=== PATIENT | male | born 1950 | race Caucasian/White ===

== ENCOUNTER → 2022-05-11 12:10 | Outpatient (BNVA) | payer MEDICARE, BC, SELFPAY | PROVIDERS: Family Provider Internal Medicine; PCP Internal Medicine; Visit Provider Family Medicine | DX: Z98.890 Other specified postprocedural states (principal); Z90.49 Acquired absence of other specified parts of digestive tract; Z90.89 Acquired absence of other organs; E83.52 Hypercalcemia; E16.2 Hypoglycemia, unspecified; K21.9 Gastro-esophageal reflux disease without esophagitis; I10 Essential (primary) hypertension; K86.89 Other specified diseases of pancreas; E11.59 Type 2 diabetes mellitus with other circulatory complications; E78.5 Hyperlipidemia, unspecified; Z79.4 Long term (current) use of insulin; E53.8 Deficiency of other specified B group vitamins; Z12.5 Encounter for screening for malignant neoplasm of prostate; N18.9 Chronic kidney disease, unspecified; K30 Functional dyspepsia; K86.81 Exocrine pancreatic insufficiency; E11.22 Type 2 diabetes mellitus with diabetic chronic kidney disease | CPT/HCPCS: 80053; 80061; 82607; 83036; 84443; G0103 ==

== ENCOUNTER → 2022-09-26 12:37 | Outpatient (BNVA) | payer MEDICARE, BC, SELFPAY | PROVIDERS: Family Provider Internal Medicine; PCP Family Medicine; Visit Provider Family Medicine | DX: E11.9 Type 2 diabetes mellitus without complications (principal); Z79.4 Long term (current) use of insulin; E78.5 Hyperlipidemia, unspecified; I10 Essential (primary) hypertension | CPT/HCPCS: 80053; 80061; 83036; 84443; 85025 ==

== ENCOUNTER 2022-10-20 06:00 | Outpatient (RCR) | payer MEDICARE, BC, SELFPAY | END 2022-11-14 23:59 | disposition home or self-care (01) | LOC: TPT 06:00 | PROVIDERS: PCP Family Medicine; Visit Provider Family Medicine | DX: R29.6 Repeated falls (principal) | CPT/HCPCS: 97110; 97116; 97163 ==

== ENCOUNTER 2022-11-15 06:00 | Outpatient (RCR) | payer MEDICARE, BC, SELFPAY | END 2022-12-15 23:59 | disposition home or self-care (01) | LOC: TPT 06:00 | PROVIDERS: PCP Family Medicine; Visit Provider Family Medicine | DX: R29.6 Repeated falls (principal) | CPT/HCPCS: 97110; 97164 ==

== ENCOUNTER → 2022-11-20 12:07 | Outpatient (BNVA) | payer MEDICARE, BC, SELFPAY | PROVIDERS: PCP Family Medicine; Visit Provider Nurse Practitioner Family | DX: M25.531 Pain in right wrist (principal) | CPT/HCPCS: 73110; 73130 ==

== ENCOUNTER 2022-12-16 06:00 | Outpatient (RCR) | payer MEDICARE, BC, SELFPAY | END 2022-12-28 23:59 | disposition home or self-care (01) | LOC: TPT 06:00 | PROVIDERS: PCP Family Medicine; Visit Provider Family Medicine | DX: R29.6 Repeated falls (principal) | CPT/HCPCS: 97110; 97164 ==

== ENCOUNTER → 2022-12-21 08:30 | Outpatient (BNVA) | payer MEDICARE, BC, SELFPAY | PROVIDERS: PCP Family Medicine; Visit Provider Family Medicine | DX: E11.9 Type 2 diabetes mellitus without complications (principal); Z79.4 Long term (current) use of insulin; N18.9 Chronic kidney disease, unspecified | CPT/HCPCS: 80053; 83036; 85025 ==

== ENCOUNTER → 2023-10-10 11:00 | Outpatient (BNVA) | payer MEDICARE, BC, SELFPAY | PROVIDERS: PCP Family Medicine; Visit Provider Family Medicine | DX: Z79.4 Long term (current) use of insulin (principal); E11.9 Type 2 diabetes mellitus without complications; I10 Essential (primary) hypertension; E78.5 Hyperlipidemia, unspecified | CPT/HCPCS: 80053; 80061; 83036; 84443; 85025 ==

== ENCOUNTER → 2023-11-01 12:06 | Outpatient (BNVA) | payer MEDICARE, BC, SELFPAY | PROVIDERS: PCP Family Medicine; Visit Provider Family Medicine | DX: R30.0 Dysuria (principal) | CPT/HCPCS: 81003; 87086 ==

== ENCOUNTER 2023-11-29 07:37 | Inpatient (IN) | payer MEDICARE, BC, SELFPAY ==
[2023-11-29] VITALS (81 sets, daily range): BP systolic 90–126; BP diastolic 52–69; PULSE 73–93; RESP 12–37; TEMP 36.6–37; O2SAT 90–98; BMI 27.1; BMI 29.9
--- NOTE | 2023-11-29 07:50 | ECG_ITS ---
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 Measurements Intervals [place] Rate: 82 P: 45 TX: 152 QRS: 72 QRSD: 150 T: -49 QT: 392 QTc: 460 Interpretive Statements SINUS RHYTHM INTRAVENTRICULAR CONDUCTION DELAY [130+ ms QRS DURATION] PROBABLE INFERIOR MYOCARDIAL INFARCTION , OF INDETERMINATE AGE [35 ms Q WAVE IN II/aVF] No previous ECG available for comparison Electronically Signed On 11-29-2023 15:19:06 CDT by Jeovanny Francis M.D. [id number]
--- NOTE | 2023-11-29 07:57 | W.ED.WEAKNES ---
HPI - Weakness General: Chief complaint: Weakness Stated complaint: generalized weakness Time Seen by Provider: 11/29/23 07:48 Source: patient Mode of arrival: EMS History of Present Illness: 73-year-old male presents emergency room via EMS complaining of generally not feeling well and being weak. States began about 3 weeks ago when he had a bladder infection does not feel like it is ever really completely resolved he was on some antibiotics for 5 days but he is completed those still not feeling well. He denies fever denies chest pain or shortness of breath he has noticed increased swelling in his legs and they are exquisitely tender. No abdominal or flank pain at this time no shortness of breath. MD Complaint: generalized weakness Onset (ago): week(s) (3) Duration: constant Location: generalized Relieving factors: none Exacerbating factors: none Associated symptoms: Denies chest pain, chills, confusion, melena, decreased appetite, diaphoresis, dysuria, easy bruising, fever(s), headache(s), myalgias, nausea, rash, short of breath, syncope or vomiting Review of Systems Const: Denies: fever(s), chills or diaphoresis Card: Denies: chest pain or syncope GI: Denies: abdominal pain, nausea, vomiting or melena : Reports: difficulty starting urination and oliguria; Denies: flank pain, dysuria, urinary frequency or urinary urgency Neuro: Denies: headache(s) or confusion Yoni/Lymph: Denies: easy bruising PFSH ED PFSH: Medical History 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 Essential (primary) hypertension Gastro-esophageal reflux disease without esophagitis Hypoglycemia 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Reston's syndrome Essential (primary) hypertension CVA (cerebral vascular accident) Hyperlipidemia CKD (chronic kidney disease) Surgical History History of esophagogastroduodenoscopy (EGD) History of tonsillectomy and adenoidectomy History of cholecystectomy History of colonoscopy Family History Other Diabetes Heart disease Social History Smoking and tobacco/nicotine status: never used tobacco/nicotine Second hand smoke exposure: No Alcohol intake: former Substance/Drug Use: never Caregiver/support person: Yes Lives independently: Yes Household members: spouse Marital status: service: No Current occupational status: retired Current gender identity: Male Special thomas needs: No Agree to transfusion: Yes Physical Exam Const: GENERAL APPEARANCE: cooperative ORIENTATION/CONSCIOUSNESS: Yes awake, Yes oriented to person, Yes oriented to place and Yes oriented to time HENMT: COMMON NORMALS: normocephalic, atraumatic and hearing grossly normal bilaterally HEAD & SCALP: normocephalic and atraumatic Resp: COMMON NORMALS: normal respiratory effort, No retractions, No use of accessory muscles and clear to auscultation bilaterally AUSCULTATION: clear to auscultation bilaterally Cardio: COMMON NORMALS: regular rate, regular rhythm and No murmurs present (Cardio) RATE: regular rate RHYTHM: regular rhythm GI: COMMON NORMALS: Soft to palpation and No hepatosplenomegaly present AUSCULTATION: Yes normoactive bowel sounds PALPATION: Yes Soft to palpation, No Tenderness to palpation present (GI), No Guarding due to palpation present (GI) and Yes No hepatosplenomegaly present Extremity: OTHER: Bilateral lower leg swelling with induration of the legs mildly reddened exquisitely tender to touch. Extends all the way to the buttocks and presacral area Neuro: SENSORIUM/ORIENTATION: Yes oriented to person, Yes oriented to place and Yes oriented to time Skin: COMMON NORMALS: no rashes or lesions noted GENERAL SKIN EXAM: no rashes or lesions noted Course Vital Signs: Vital signs: Vital Signs Temperature 98.6 F 11/29/23 07:39 Pulse Rate 73 11/29/23 11:13 Respiratory Rate 18 11/29/23 07:39 Blood Pressure 98/56 11/29/23 11:13 Pulse Oximetry 95 11/29/23 11:13 Oxygen Delivery Me thod Room Air 11/29/23 11:13 MDM - Weakness Medical Decision Making Acute renal failure with hyperkalemia cystitis and sepsis. Lactic acid is normal. Cultures done has been given fluid bolus and has been started on meropenem. No previous urine cultures to based off of it. Pollard was placed had significantly purulent appearing urine. CT abdomen pelvis shows gastroparesis although he is nauseous he is not having a vomiting at this time. His hyperkalemia has been treated with calcium chloride sodium bicarb infusion insulin and Kayexalate. Nephrology consulted admitted to hospitalist service. Medical Records I reviewed the patient's medical records. Lab Data I reviewed the patient's lab results. 11/29/23 08:17 11/29/23 08:17 Radiology Impressions Chest X-Ray 11/29/23 08:06 IMPRESSION: No acute findings. Laboratory Results WBC 22.35 10^3/uL (3.29-11.43) H 11/29/23 08:17 RBC 4.08 10^6/uL (3.85-5.65) 11/29/23 08:17 Hgb 12.10 g/dL (11.27-16.99) 11/29/23 08:17 Hct 37.6 % (37-53) 11/29/23 08:17 MCV 92.2 fl (82-101) 11/29/23 08:17 MCH 29.7 pg (27-33) 11/29/23 08:17 MCHC 32.2 g/dL (30-55) 11/29/23 08:17 RDW 14.0 % (12.1-15.1) 11/29/23 08:17 Plt Count 214 10^3/cmm (157-399) 11/29/23 08:17 MPV 11.0 fL (7.4-10.4) H 11/29/23 08:17 Neut % (Auto) 92.3 % 11/29/23 08:17 Lymph % (Auto) 3.6 % 11/29/23 08:17 [place] % (Auto) 2.5 % 11/29/23 08:17 Eos % (Auto) 0.2 % 11/29/23 08:17 Baso % (Auto) 0.2 % 11/29/23 08:17 Neut # (Auto) 20.64 10^3/uL (1.8-7.7) H 11/29/23 08:17 Lymph # (Auto) 0.8 10^3/uL (0.8-4.8) 11/29/23 08:17 [place] # (Auto) 0.6 10^3/uL (0.2-0.9) 11/29/23 08:17 Eos # (Auto) 0.0 10^3/uL (0.0-0.8) 11/29/23 08:17 Baso # (Auto) 0.0 10^3/uL (0.0-0.1) 11/29/23 08:17 Nucleated RBC % (auto) 0 % 11/29/23 08:17 Nucleated RBCs # 0.0 /100WBC 11/29/23 08:17 Sodium 130 mmol/L (136-145) L 11/29/23 08:17 Potassium 5.8 mmol/L (3.5-5.1) H 11/29/23 08:17 Chloride 93 mmol/L (98-107) L 11/29/23 08:17 Carbon Dioxide 14 mmol/L (22-29) L 11/29/23 08:17 Anion Gap 28.8 (5-19) H 11/29/23 08:17 BUN 63 mg/dL (8-23) H 11/29/23 08:17 Creatinine 7.3 mg/dL (0.7-1.2) H* 11/29/23 08:17 GFR Calculation Not Reportable 11/29/23 08:17 Glucose 166 mg/dL (65-115) H 11/29/23 08:17 Calculated Osmolality 292 mOsm/kg (285-295) 11/29/23 08:17 Lactic Acid 1.6 mmol/L (0.5-2.2) 11/29/23 08:17 Calcium 7.4 mg/dL (8.5-10.5) L 11/29/23 08:17 Magnesium 1.3 mg/dL (1.7-2.3) L 11/29/23 08:17 Total Bilirubin 1.0 mg/dL (0.15-1.2) 11/29/23 08:17 AST 34 U/L (0-40) 11/29/23 08:17 ALT 31 U/L (0-41) 11/29/23 08:17 Alkaline Phosphatase 543 U/L (40-130) H 11/29/23 08:17 Creatine Kinase 73 U/L (39-308) 11/29/23 08:17 Troponin T Baseline 390 ng/L (0-15) H* 11/29/23 08:17 Troponin T 120 Minute 333.4 ng/L (0-15) H 11/29/23 10:14 Delta Troponin T -56.6 ABS# (0-10) L 11/29/23 10:14 NT-Pro-B Natriuret Pep 85750 pg/mL (0-125) H 11/29/23 08:17 Total Protein 5.9 g/dL (6.6-8.7) L 11/29/23 08:17 Albumin 2.4 g/dL (3.5-5.2) L 11/29/23 08:17 Globulin 3.5 g/dL (1.3-4.6) 11/29/23 08:17 Urine Color Straw (Yellow) 11/29/23 08:47 Urine Appearance Cloudy (CLEAR) A 11/29/23 08:47 Urine pH 6.5 (5-7) 11/29/23 08:47 Ur Specific [place] 1.010 (1.005-1.030) 11/29/23 08:47 Urine Protein 1+ (Negative) H 11/29/23 08:47 Urine Glucose (UA) 2+ (Normal) H 11/29/23 08:47 Urine Ketones Negative (Negative) 11/29/23 08:47 Urine Blood 3+ (Negative) H 11/29/23 08:47 Urine Nitrate Negative (Negative) 11/29/23 08:47 Urine Bilirubin Neg (Negative) 11/29/23 08:47 Urine Urobilinogen Neg mg/dL (Negative) 11/29/23 08:47 Ur Leukocyte Esterase 2+ (Negative) H 11/29/23 08:47 Urine RBC 5-10 /hpf (0-2) H 11/29/23 08:47 Urine WBC Too numerous to cnt /hpf (0-5) H 11/29/23 08:47 Ur Squamous Epith Cells 0-4 /hpf (0-5) H 11/29/23 08:47 Amorphous Sediment Not Reportable 11/29/23 08:47 Urine Bacteria 3+ /hpf (NONE) H 11/29/23 08:47 All radiology interpretation(s) finalized by discharge Discharge Plan Discharge Patient Disposition: Admitted As Inpatient Clinical Impression: Sepsis, Diabetes, Cystitis, Acute renal failure (ARF), Acute hyperkalemia Condition: Stable Prescriptions: No Action (DME) FreeStyle Lite Strips Strip See Rx Instructions .ROUTE .MEDSUPPLY Qty: 100 3RF Rx Instructions: One strip to test blood sugar four times daily (DME) insulin syringe-needle U-100 [BD Insulin Syringe Ultra-Fine] 0.5 mL 31 gauge x 5/16 syringe See Rx Instructions .ROUTE .MEDSUPPLY Qty: 200 6RF Rx Instructions: 5 times daily (DME) Blood Glucose Test Strip See Rx Instructions .ROUTE .MEDSUPPLY Qty: 100 11RF Rx Instructions: test four times daily, prn (DME) lancets [FreeStyle Lancets] 28 gauge misc See Rx Instructions .ROUTE .MEDSUPPLY Qty: 200 4RF Rx Instructions: TEST FOUR TIMES DAILY (DME) pen needle, diabetic [Comfort EZ Pen [place]] 32 gauge x 1/4 needle See Rx Instructions .Route Qty: 100 0RF Rx Instructions: daily to inject insulin Novolin R Regular U100 Insulin 100 unit/mL solution See Rx Instructions .ROUTE .COMPLEX Qty: 10 0RF Dose Instruction: INJECT subcutaneously PER sliding scale: 2 units of insulin PER 15 grams of carbs Rx Instructions: INJECT subcutaneously PER sliding scale: 2 units of insulin PER 15 grams of carbs amitriptyline 10 mg tablet 20 mg PO DAILY Qty: 90 3RF simvastatin 40 mg tablet 40 mg PO DAILY Qty: 90 2RF lisinopril 40 mg tablet 40 mg PO DAILY Qty: 90 3RF clopidogrel [Plavix] 75 mg tablet 75 mg PO DAILY Qty: 90 3RF amlodipine 10 mg tablet 10 mg PO DAILY Qty: 90 3RF furosemide 40 mg tablet 40 mg PO DAILY Qty: 90 0RF Novolin N NPH U-100 Insulin 100 unit/mL suspension See Rx Instructions .ROUTE .COMPLEX Qty: 10 3RF Dose Instruction: inject 75 units SUBCUTANEOUSLY EVERY MORNING Rx Instructions: inject 80 units SUBCUTANEOUSLY EVERY MORNING metoprolol tartrate 100 mg tablet 100 mg PO BID Qty: 60 3RF acetaminophen 325 mg Tablet 650 mg PO QID PRN (Reason: Pain) tramadol 50 mg Tablet 100 mg PO Q8H PRN (Reason: Pain) Men's One Daily 400-20-300 mcg Tablet 1 tab PO DAILY pantoprazole 40 mg tablet,delayed release (DR/EC) 40 mg PO BID calcitriol 0.25 mcg capsule See Rx Instructions .ROUTE .COMPLEX Rx Instructions: 0.25 mcg orally ;ON SUNDAY, SUNDAY AND SUNDAY Jardiance 25 mg tablet 25 mg PO DAILY Referrals: Su Porter MD [Primary Care Provider] - Coding 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
--- NOTE | 2023-11-29 08:06 | XRR_ITS ---
PROCEDURE INFORMATION: Exam: XR Chest Exam date and time: 11/29/2023 8:11 AM Age: 73 years old Clinical indication: Cough and dyspnea; Additional info: Dyspnea/cough TECHNIQUE: Imaging protocol: Radiologic exam of the chest. Views: 1 view. COMPARISON: CR XR chest 1V [id number] 09/03/2017 12:02 PM FINDINGS: Lungs: Unremarkable. No consolidation. Pleural spaces: Unremarkable. No pleural effusion. No pneumothorax. Heart/Mediastinum: Unremarkable. No cardiomegaly. Bones/joints: Unremarkable. XR/XR chest 1V portable [id number] IMPRESSION: No acute findings.
--- NOTE | 2023-11-29 08:10 | USCV_ITS ---
LorettaKwabenaSotero cheatham Age: 73 Gender: M : 1950 Exam Date: 11/29/2023 08:50 Ordering Phys: Vidla Mayfield DO Technologist: [place] [facility] [place]: bilat edema PROCEDURES: The venous duplex Doppler examination of both lower extremities was performed in the standard fashion. The following venous structures were evaluated: common femoral vein, profunda vein, proximal portion of the greater saphenous vein, superficial femoral vein, and the popliteal vein. In addition, the posterior tibial and peroneal trunk were evaluated. FINDINGS: Normal 2-D Doppler and augmentation and compressibility throughout the lower extremity venous structures. Additional imaging through the proximal calf veins also reveals no thrombus. Limited evaluation of the greater saphenous vein is patent with no thrombus. CONCLUSIONS No DVT bilateral lower extremities. Dr. Pricilla Zapata DO (Electronically Signed) Final Date: 29 November 2023 09:36 S
[2023-11-29 08:36] LABS: Basophils % 0.2 %; Eosinophils % 0.2 %; Hematocrit 37.6 % (37-53); Lymphocytes # 0.8 10^3/uL (0.8-4.8); Lymphocytes % 3.6 %; Mean Corpuscular HGB Conc 32.2 g/dL (30-55); Mean Corpuscular Hemoglobin 29.7 pg (27-33); Mean Corpuscular Volume 92.2 fl (82-101); Monocytes # 0.6 10^3/uL (0.2-0.9); Monocytes % 2.5 %; Neutrophils # 20.64 10^3/uL (1.8-7.7); Neutrophils % 92.3 %; Nucleated Red Blood Cells % 0 %; Platelet Count 214 10^3/cmm (157-399); Red Blood Count 4.08 10^6/uL (3.85-5.65); White Blood Count 22.35 10^3/uL (3.29-11.43)
--- NOTE | 2023-11-29 08:49 | CT_ITS ---
WS: [id number] CT ABDOMEN AND PELVIS NONCONTRAST HISTORY: flank pain TECHNIQUE: Imaging performed through the abdomen and pelvis. Coronal and sagittal reformats are submi tted. All CT scans at [facility] use at least one of these dose optimization techniques: auto mated exposure control; mA and/or kV adjustment per patient size (includes targeted exams where dose is matched to clinical indication); or iterative reconstruction. DLP: 987.95 mGy.cm COMPARISON: 05/29/2010 Lower thorax: Dependent changes and atelectasis at the lung bases. Benign LEFT lower lobe granuloma. Moderate cardiomegaly. Liver: Cirrhotic liver. Pneumobilia. Gallbladder: Prior cholecystectomy. Dilatation of the common bile duct to 9 mm. Pancreas: Severe pancreatic atrophy. The duct is not dilated. There are scattered calcifications with in the pancreas and also at the pancreatic head. Spleen: Normal size with granulomata. Adrenal glands: Normal. No mass. Right kidney: Normal size kidney with mild cortical thinning. Nonobstructing 14 mm calcification lowe r pole. No perinephric stranding. Left kidney: Nonobstructing small calcifications. No obstruction. Aorta: Moderate atherosclerotic plaque within the aorta There is significant calcification in the splenic artery. Heavily calcified mesenteric arteries. No free fluid, intraperitoneal air or significant lymphadenopathy. GI tract: Stomach is markedly distended with fluid. There is a changing caliber of the duodenum. No s mall bowel obstruction. Several sigmoid diverticula. Abdominal wall: No hernia. Soft tissue anasarca laterally. Pelvis: Pollard catheter in a nondistended bladder. Extensive calcification in the femoral and iliac ar teries. There is a small amount of presacral fluid and thickening. Osseous structures: Degenerative disc disease at L5-S1. IMPRESSION: 1. Marked distention of the stomach with fluid. There is a change in caliber in the duodenal C-loop. Spasm versus gastric outlet obstruction or obstructing neoplasm within the differential. 2. Severe atrophy of the pancreas with calcifications. Typically seen with chronic pancreatitis. No mass identified. 3. Prior cholecystectomy with pneumobilia. 4. No renal obstruction. Bilateral nonobstructing renal calculi. 5. Mild sigmoid diverticulosis without acute diverticulitis. 6. Mild soft tissue anasarca. 7. Significant atherosclerotic plaque within the arteries of the abdomen and pelvis.
[2023-11-29 08:55] LABS: Lactic Sepsis W/Reflex 1.6 mmol/L (0.5-2.2)
[2023-11-29] MEDS: meropenem 1,000 MG in sodium chloride 0.9% (plus) 50 ML 100 MG IV (09:01)
[2023-11-29 09:05] LABS: Alanine Aminotransferase 31 U/L (0-41); Albumin Level 2.4 g/dL (3.5-5.2); Alkaline Phosphatase 543 U/L (40-130); Anion Gap 28.8 (5-19); Aspartate Amino Transferase 34 U/L (0-40); Blood Urea Nitrogen 63 mg/dL (8-23); Calcium 7.4 mg/dL (8.5-10.5); Carbon Dioxide 14 mmol/L (22-29); Chloride 93 mmol/L (98-107); Creatine Phosphokinase 73 U/L (39-308); Creatinine Clr Calc Pharmacy 10.4032; Globulin 3.5 g/dL (1.3-4.6); Glucose 166 mg/dL (65-115); Magnesium 1.3 mg/dL (1.7-2.3); NT Pro B Type Natriuretic Pept 18938 pg/mL (0-125); Osmolality Calculated 292 mOsm/kg (285-295); Potassium 5.8 mmol/L (3.5-5.1); Sodium 130 mmol/L (136-145); Total Protein 5.9 g/dL (6.6-8.7)
[2023-11-29 09:08] LABS: Troponin(5th) Baseline 390 ng/L (0-15)
[2023-11-29 09:31] LABS: Urine Color Straw (Yellow)
[2023-11-29 09:32] LABS: Add Urine Microscopic? YES; Bilirubin Urine Neg (Negative); Blood Urine 3+ (Negative); Glucose Urine UA 2+ (Normal); Ketones Urine Negative (Negative); Leukocyte Esterase Urine 2+ (Negative); Nitrate Urine Negative (Negative); Protein Urine 1+ (Negative); Urine Appearance Cloudy (CLEAR); Urobilinogen Urine Neg (Negative); pH Urine 6.5 (5-7)
[2023-11-29 09:43] LABS: Add Urine Culture? Yes; Bacteria Urine 3+ /hpf; Squamous Epithelial Cell Urine 0-4 /hpf (0-5); WBC Urine TOO NUMEROUS TO CNT /hpf (0-5)
--- NOTE | 2023-11-29 09:54 | ECG_ITS ---
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 Measurements Intervals [place] Rate: 96 P: 0 CO: 0 QRS: 85 QRSD: 112 T: -70 QT: 344 QTc: 435 Interpretive Statements ATRIAL FIBRILLATION MODERATE INTRAVENTRICULAR CONDUCTION DELAY [105+ ms QRS DURATION, 80+ ms Q/S IN V1/V2, NO Q AND 60+ ms R IN I/aVL/V5/V6] Compared to ECG 11/29/2023 07:50:01 ST (T wave) deviation now present Sinus rhythm no longer present Myocardial infarct finding no longer present Electronically Signed On 11-29-2023 15:21:35 CDT by Jeovanny Francis M.D. [id number]
[2023-11-29] MEDS: sodium bicarbonate 50 MEQ in dextrose 5% 250 ML 300 MEQ IV (10:15)
[2023-11-29] MEDS: calcium chloride 10% Syr 10 mL 1 GM IVP (10:25)
[2023-11-29] MEDS: insulin regular-human 100 units/1 mL 10 UNIT IVP (10:28)
[2023-11-29] MEDS: sodium polystyrene sulfonate 15 gm/60 mL Btl PO (10:30)
[2023-11-29] MEDS: sodium chloride 0.9% 2,721.54 ML 999 ML IV (10:32)
[2023-11-29 11:07] LABS: Troponin 5 2HR 333.4 ng/L (0-15); Troponin 5 2HR Delta -56.6 ABS# (0-10)
--- NOTE | 2023-11-29 11:24 | USCV_ITS ---
Sotero Canchola (Reggie) Age: 73 Gender: M : 1950 Exam Date: 11/29/2023 12:11 Ordering Phys: Trevor Reardon MD Technologist: TIM Exam Location: [facility] – [place] Indication: chf pedal edema BP: 121 / 68 HR: 74 Rhythm: Sinus Technical Quality: Adequate MEASUREMENTS (Male / Female) Normal Values 2D ECHO LV Diastolic Diameter PLAX 5.4 cm 4.2 - 5.9 / 3.9 - 5.3 cm IVS Diastolic Thickness 0.9 cm 0.6 - 1.0 / 0.6 - 0.9 cm IVS Systolic Thickness 1.5 cm LVPW Diastolic Thickness 1.2 cm 0.6 - 1.0 / 0.6 - 0.9 cm LVPW Systolic Thickness 1.3 cm LVOT Diameter 2.0 cm LV Ejection Fraction 2D Teich 36.4 % LV Ejection Fraction MOD 2C 35.2 % LV Ejection Fraction 2C AL 36.7 % LA Diameter 4.1 cm RA Systolic Volume 4C AL 23.1 ml RA Systolic Volume 4C MOD 23.1 ml DOPPLER AV Peak Velocity 209.0 cm/s LVOT Peak Velocity 113.0 cm/s AV Area Cont Eq vti 1.9 cm squared AV Area Cont Eq pk 1.7 cm squared MV Peak Velocity 139.0 cm/s MV Area PHT 3.2 cm squared Mitral E to A Ratio 0.9 TR Peak Velocity 238.0 cm/s TR Peak Gradient 22.7 mmHg TR Mean Velocity 133.0 cm/s TR Mean Gradient 8.4 mmHg TR Velocity Time Integral 53.7 cm PV Peak Velocity 120.0 cm/s FINDINGS Left Ventricle LV systolic function is mildly reduced with EF of 45 to 50%. Basal Inferoseptal and anteroseptal peoples have moderate to severe hypokinesis. Right Ventricle Normal in size and function Right Atrium Normal in size Left Atrium Normal in size Mitral Valve Structurally normal mitral valve. Mild mitral regurgitation. Aortic Valve Aortic valve is thickened. No significant stenosis. Trace aortic regurgitation. Tricuspid Valve Mild tricuspid regurgitation. Pulmonary artery systolic pressure is normal. Pulmonic Valve Mild pulmonic regurgitation. Pericardium Normal Aorta Ascending aorta is dilated with diameter of 3.98 cm. IVC Not well visualized CONCLUSIONS LV systolic function is mildly reduced with EF of 45 to 50%. Basal inferoseptal and anteroseptal peoples of moderate to severe hypokinesis. Mild mitral regurgitation Trace aortic regurgitation Mild tricuspid regurgitation Mild pulmonic regurgitation Ascending aorta is dilated with diameter of 3.98 cm. Compared to prior echocardiogram from 2017, LV systolic function has decreased Aaron Villalba MD (Electronically Signed) Final Date: 30 November 2023 08:35 S
--- NOTE | 2023-11-29 11:41 | PM.HP ---
Providers/Chief Complaint Primary Care Provider: Su Porter MD Chief Complaint: generalized weakness History of Present Illness Stoero Canchola(Kwabena) is a 73 year old male with a past medical history of CVA, with residual left-sided weakness, hypertension, hyperlipidemia, insulin-dependent type 2 diabetes mellitus, chronic kidney disease, who presents to [facility] due to bilateral extremity edema, shortness of breath, weakness, increased confusion. Patient's is at bedside, who helps in the history taking, as patient is hard of hearing, patient tells me that her outpatient physician has been monitoring his kidney function, due to elevation of his creatinine, he is supposed to see a outdoor advertising leasing agent, but the next available appointment is in the next few months. He has been developing increasing lower extremity edema, pitting edema with shortness of breath, due to increased lower extremity edema, he is having significant pain, he was placed on Lyrica for possible neuropathic pain however it made patient very confused so it was stopped after 2 doses. Patient reports feeling fatigue, malaise, he did have a UTI roughly 3 weeks ago, he received antibiotics, denies any dysuria, but does complain of right flank pain and lower back pain, no fevers, no chills, no nausea, no vomiting but does have a poor appetite he does report increased abdominal distention, no bloody or black stools, he denies any chest pain, no palpitations, no headache, no blurry vision, Review of Systems Const: Reports: fatigue and malaise; Denies: fever(s) or chills Eyes: Denies: change in vision Card: Denies: chest pain Resp: Denies: dyspnea GI: Denies: abdominal pain : Reports: flank pain Musc: Reports: back pain Medications/Allergies Home Medications Medication Instructions Recorded Confirmed Last Taken Type blood sugar diagnostic (FreeStyle #100 ea 08/25/20 11/29/23 Unknown Rx Lite Strips) lancets 28 gauge (FreeStyle #200 ea 05/15/22 11/29/23 Unknown Rx Lancets) pen needle, diabetic 32 gauge x #100 ea 06/02/22 11/29/23 Unknown Rx 1/4 (Comfort EZ Pen [place]) blood sugar diagnostic (Blood #100 ea 09/26/22 11/29/23 Unknown Rx Glucose Test strips) insulin syringe-needle U-100 0.5 #200 ea 01/10/23 03/14/24 Unknown Rx mL 31 gauge x 5/16 (BD Insulin Syringe Ultra-Fine) insulin regular human 100 unit/mL See Rx Instructions .Route 05/04/23 11/29/23 11/28/23 Rx injection solution (Novolin R .COMPLEX #10 mL Regular U-100 Insulin) amitriptyline 10 mg tablet 20 mg (2 x 10 mg) PO DAILY #90 tabs 05/30/23 11/29/23 11/28/23 Rx amlodipine 10 mg tablet 10 mg PO DAILY #90 tabs 07/25/23 11/29/23 11/28/23 Rx clopidogrel 75 mg tablet (Plavix) 75 mg PO DAILY #90 tabs 07/25/23 11/29/23 11/28/23 Rx lisinopril 40 mg tablet 40 mg PO DAILY #90 tabs 07/25/23 11/29/23 11/28/23 Rx simvastatin 40 mg tablet 40 mg PO DAILY #90 tabs 07/25/23 11/29/23 11/28/23 Rx furosemide 40 mg tablet 40 mg PO DAILY #90 tabs 10/03/23 11/29/23 11/28/23 Rx insulin NPH isoph U-100 human 100 See Rx Instructions .Route 10/22/23 11/29/23 11/28/23 Rx unit/mL subcutaneous suspension .COMPLEX #10 mL (Novolin N NPH U-100 Insulin isophane) metoprolol tartrate 100 mg tablet 100 mg PO BID #60 tabs 10/29/23 11/29/23 11/28/23 Rx acetaminophen 325 mg tablet 650 mg PO QID PRN Pain 11/29/23 11/29/23 11/28/23 History calcitriol 0.25 mcg capsule See Rx Instructions .Route .COMPLEX 11/29/23 11/29/23 11/28/23 History empagliflozin 25 mg tablet 25 mg PO DAILY 11/29/23 11/29/23 11/28/23 History (Jardiance) qoxjfwsa-vvkupimt-sxisv acid 400 1 tab PO DAILY 11/29/23 11/29/23 11/28/23 History mcg-vit K 20 mcg-lycop 300 mcg tablet (Men's One Daily) pantoprazole 40 mg tablet,delayed 40 mg PO BID 11/29/23 11/29/2311/27/24 History release tramadol 50 mg tablet 100 mg PO Q8H PRN Pain 11/29/23 11/29/23 11/28/23 History Allergies Allergy/AdvReac Type Severity Reaction Status Date / Time metformin Allergy VOMITING Verified 11/29/23 07:45 pregabalin [From Lyrica] Allergy ADR-Fatigue Verified 11/29/23 08:16 d dulaglutide [From Trulicity] AdvReac Intermediate ADR-Vomitin Verified 11/29/23 07:45 g PFSH Acute PFSH: Medical History 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 Essential (primary) hypertension Gastro-esophageal reflux disease without esophagitis Hypoglycemia 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Flushing's syndrome Essential (primary) hypertension CVA (cerebral vascular accident) Hyperlipidemia CKD (chronic kidney disease) Surgical History History of esophagogastroduodenoscopy (EGD) History of tonsillectomy and adenoidectomy History of cholecystectomy History of colonoscopy Family History Other Diabetes Heart disease Social History Smoking and tobacco/nicotine status: never used tobacco/nicotine Second hand smoke exposure: No Alcohol intake: former Substance/Drug Use: never Caregiver/support person: Yes Lives independently: Yes Household members: spouse Marital status: service: No Current occupational status: retired Current gender identity: Male Special thomas needs: No Agree to transfusion: Yes Vitals/I&O/Wt Last Vital Signs Temp 98.6 F 11/29/23 07:39 Pulse 73 11/29/23 11:13 Resp 18 11/29/23 07:39 BP 98/56 11/29/23 11:13 Pulse Ox 95 11/29/23 11:13 O2 Del Method Room Air 11/29/23 11:13 11/28/23 11/29/23 11/29/23 22:59 06:59 14:59 Intake Total 350 / 350 Balance 350 / 350 Weight last 48 hrs Weight 90.718 kg Physical Exam Const: COMMON NORMALS: no acute distress and patient oriented x3 HENMT: COMMON NORMALS: normocephalic Eye: COMMON NORMALS: Equal, round and reactive pupils present and EOMs intact bilaterally Neck/C-Spine: COMMON NORMALS: full ROM and no lymphadenopathy Resp: COMMON NORMALS: normal respiratory effort, No retractions, No use of accessory muscles and clear to auscultation bilaterally AUSCULTATION: crackles Cardio: COMMON NORMALS: regular rate, regular rhythm, S1 normal heart sound present and S2 normal heart sound present RATE: regular rate RHYTHM: regular rhythm HEART SOUNDS: S1 normal heart sound present and S2 normal heart sound present GI: OTHER: Abdomen soft, distended, good bowel sounds, no guarding, no rebound, no rigidity : OTHER: Does have right CVA tenderness Extremity: COMMON NORMALS: no calf tenderness NARRATIVE EXTREMITY EXAM: Bilateral lower extremity 2+ pitting edema Neuro: COMMON NORMALS: patient oriented x3, CN's II-XII intact bilaterally and moves all extremities Urinary Catheter Management: Pollard: Cath Placed During This Visit: yes Urinary Catheter Date of Insertion: 11/29/23 Urinary Catheter Time of Insertion: 08:55 Data 11/29/23 08:17 11/29/23 08:17 Micro: Microbiology 11/29/23 08:17 Blood Culture - Preliminary Blood SPECIMEN COLLECTED 11/29/23 08:17 Blood Culture - Preliminary Blood SPECIMEN COLLECTED A&P Assessment and plan (1) Pyelonephritis: (2) UTI (urinary tract infection): (3) Acute renal failure superimposed on stage 3 chronic kidney disease: (4) Hyperkalemia: (5) NSTEMI (non-ST elevated myocardial infarction): (6) Acute exacerbation of CHF (congestive heart failure): (7) Fluid overload: (8) Hypomagnesemia: (9) Anasarca: Plan Acute pyelonephritis, with right CVA tenderness, UTI -Start meropenem, Zyvox -Follow urine cultures, blood cultures Acute renal failure on chronic kidney disease -Creatinine up to 7.3, however has received fluids in the ER, ? Given elevated BNP, bilateral extreme edema, shortness of breath, anasarca will hold off on further fluid therapy due to risk of fluid overload ? Consult nephrology for need for dialysis Hyperkalemia ? Status post calcium gluconate, insulin, D50, sodium bicarb, Kayexalate in the emergency room -Likely secondary renal failure ? Recheck serum potassium level ? Serial EKGs, serial troponins, telemetry monitoring Acute systolic and diastolic CHF exacerbation ? Secondary to fluid overload, anasarca, lower extreme edema, ? Creatinine 7.3, troponin 390, BNP over 18,000 ? Will consider Lasix based on clinical progress ? Patient might require dialysis ? Cardiac echo NSTEMI ? No chest pain complaints, ? Continue Plavix, ? Cardiac echo ? Serial EKGs, serial troponins, telemetry monitoring Anasarca as above Sepsis secondary to UTI, pyelonephritis given leukocytosis, elevated inflammatory markers, 1. Marked distention of the stomach with fluid. There is a change in caliber in the duodenal C-loop. Spasm versus gastric outlet obstruction or obstructing neoplasm within the differential. -Keep n.p.o., KUB, will consider nasogastric tube Full code Heparin for DVT prophylaxis Attestations Medical Necessity Statement*: Patient requires hospitalization, inpatient, greater than 2 midnights for acute pyelonephritis, UTI, acute renal failure, with hyperkalemia, fluid overload, anasarca, acute CHF exacerbation Diagnoses Pyelonephritis N12 UTI (urinary tract infection) N39.0 Acute renal failure superimposed on stage 3 chronic kidney disease N17.9; N18.30 Hyperkalemia E87.5 NSTEMI (non-ST elevated myocardial infarction) I21.4 Acute exacerbation of CHF (congestive heart failure) I50.9 Fluid overload E87.70 Hypomagnesemia E83.42 Anasarca R60.1
[2023-11-29 11:57] LABS: Glucose Point of Care 185 mg/dL (70-110)
--- NOTE | 2023-11-29 11:58 | XRR_ITS ---
PROCEDURE INFORMATION: Exam: XR Abdomen Exam date and time: 11/29/2023 12:03 PM Age: 73 years old Clinical indication: Bloating; Additional info: Stomach distention. No history of recent trauma or surgery is provided. TECHNIQUE: Imaging protocol: Radiologic exam of the abdomen. 1image(s) are provided. Views: Frontal supine view of the abdomen. 1 View. COMPARISON: CT kidney stone [id number] 11/29/2023 9:38 AM. No previous abdominal radiograph is currently available. FINDINGS: Gastrointestinal tract: The bowel gas pattern appears nonobstructive. There is some moderate stool content present with transverse and right colon predominance. Gastric level evaluation is overall limited. Intraperitoneal space: There is some calcific density overlying the left lateral, lower abdomen as well as some pelvic calcifications. Some oz or phleboliths type calcifications could also present in this fashion. No gross layering free air is currently appreciated. Organs: There appear to be some calcific related change for example at the expected right renal fossa. Some bowel content could also present in this fashion. Bones/joints: Osseous alignment is maintained. No interval displaced fracture or dislocation is appreciated.There is slightly decreased bone mineralization overall. There is some degeneration of the spine and hips demonstrated. Soft tissues: The hemidiaphragms and lateral abdominal peoples are technically excluded for evaluation. Other findings: There is some motion, penetration artifact. XR/XR KUB portable [id number] IMPRESSION: The bowel-gas pattern appears nonobstructive overall. Gastric level evaluation is overall limited. If there is persistent clinical concern then consider upper GI or endoscopy.
[2023-11-29 12:07] LABS: Blood Urea Nitrogen 60 mg/dL (8-23); C Reactive Protein 205.7 mg/L (0.0-4.9); Calcium 7.4 mg/dL (8.5-10.5); Carbon Dioxide 13 mmol/L (22-29); Chloride 95 mmol/L (98-107); Glucose 168 mg/dL (65-115); Osmolality Calculated 291 mOsm/kg (285-295); Sodium 130 mmol/L (136-145)
[2023-11-29 12:09] LABS: Creatinine Clr Calc Pharmacy 11.5066
[2023-11-29 12:14] LABS: Procalcitonin 1.37 ng/mL (0-0.5)
[2023-11-29 13:31] LABS: Estmated Average Glucose 163; Hemoglobin A1C 7.3 % (4.0-6.0)
[2023-11-29] MEDS: magnesium sulfate premix 2 GM/50 ML PIGGYBACK IV (13:32)
[2023-11-29] MEDS: linezolid premix 600 MG/300 ML PREMIX 300 MG IV (13:32)
[2023-11-29] MEDS: heparin 5,000 unit/mL INJ 1 mL 5000 UNIT SUBCUT (13:33)
[2023-11-29] MEDS: sodium chloride 0.9% 1,000 ML 100 ML IV (13:33)
[2023-11-29 13:34] LABS: Chol HDL Ratio 4.85 mg/dL (1.0-5.00); Cholesterol 63 mg/dL (0-200); HDL Cholesterol 13 mg/dL (60-100); LDL Cholesterol Calculated 9 mg/dL (50-129); LDL HDL Ratio 0.69 RATIO (0.00-3.22); Thyroid Stimulating Hormone 1.89 uIU/mL (0.27-4.20); Triglycerides 207 mg/dL (0-150)
[2023-11-29 13:40] LABS: Glucose Point of Care 155 mg/dL (70-110)
[2023-11-29] MEDS: insulin lispro 100 unit/1 mL SUBCUT ×3 (13:40→20:36)
--- NOTE | 2023-11-29 14:06 | ECG_ITS ---
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 Measurements Intervals [place] Rate: 75 P: 0 ID: 0 QRS: 73 QRSD: 135 T: -49 QT: 392 QTc: 438 Interpretive Statements ATRIAL FIBRILLATION INTRAVENTRICULAR CONDUCTION DELAY [130+ ms QRS DURATION] Compared to ECG 11/29/2023 09:54:59 ST (T wave) deviation no longer present Electronically Signed On 11-29-2023 15:21:42 CDT by Jeovanny Francis M.D. [email or web address]
[2023-11-29] MEDS: morphine 4 mg/mL SDV 1 mL 1 MG IVP (14:35)
[2023-11-29 15:10] LABS: Troponin 5 6HR Delta -57.4 ng/L (0-12)
[2023-11-29 15:12] LABS: Troponin 5 6HR 332.6 ng/L (0-15)
[2023-11-29] MEDS: pantoprazole DR 40 mg Tablet PO (18:14)
[2023-11-29 18:20] LABS: Glucose Point of Care 173 mg/dL (70-110)
--- NOTE | 2023-11-29 20:05 | P.CONIM_ITS ---
Providers/Reason For Consult 2 Consulting Physician/Specialty*: kommana/Nephrology Reason for Consult*: JIA Attending Physician: Trevor Reardon MD Primary Care Provider: Su Porter MD History of Present Illness History of Present Illness Sotero Canchola(Kwabena) is a 73 year old male Patient is a 73-year-old male with past medical history of prior CVA, hypertension, chronic kidney disease, diabetes presented to the emergency department due to worsening lower extremity edema and shortness of breath as well as altered mental status. Patient family reported that patient has CKD and was supposed to see a concrete pipe machine operator and awaiting appointments. He recently had a UTI and received antibiotics. Lab data in the emergency department has showed elevated WBC count of 22,000, sodium 130 potassium 5.8, CO2 of 14 and BUN of 63 and creatinine of 7.3. No evidence of obstructive uropathy on CT but had a concern for possible gastric outlet obstruction. UA was also consistent with UTI. He is started on meropenem and Zyvox. Patient received IV fluids in the ER and repeat creatinine is 6.6 with a urine output of about 350 cc so far. Review of Systems 2 Narrative: hard of hearing unable to obtain full ROS Medications/Allergies Home Medications Medication Instructions Recorded Confirmed Last Taken Type blood sugar diagnostic (FreeStyle #100 ea 08/25/20 11/29/23 Unknown Rx Lite Strips) lancets 28 gauge (FreeStyle #200 ea 05/15/22 11/29/23 Unknown Rx Lancets) pen needle, diabetic 32 gauge x #100 ea 06/02/22 11/29/23 Unknown Rx 1/4 (Comfort EZ Pen [place]) blood sugar diagnostic (Blood #100 ea 09/26/22 11/29/23 Unknown Rx Glucose Test strips) insulin syringe-needle U-100 0.5 #200 ea 09/26/22 11/29/23 Unknown Rx mL 31 gauge x 5/16 (BD Insulin Syringe Ultra-Fine) insulin regular human 100 unit/mL See Rx Instructions .Route 05/04/23 11/29/23 11/28/23 Rx injection solution (Novolin R .COMPLEX #10 mL Regular U-100 Insulin) amitriptyline 10 mg tablet 20 mg (2 x 10 mg) PO DAILY #90 tabs 05/30/23 11/29/23 11/28/23 Rx amlodipine 10 mg tablet 10 mg PO DAILY #90 tabs 07/25/23 11/29/23 11/28/23 Rx clopidogrel 75 mg tablet (Plavix) 75 mg PO DAILY #90 tabs 07/25/23 11/29/23 11/28/23 Rx lisinopril 40 mg tablet 40 mg PO DAILY #90 tabs 07/25/23 11/29/23 11/28/23 Rx simvastatin 40 mg tablet 40 mg PO DAILY #90 tabs 07/25/23 11/29/23 11/28/23 Rx furosemide 40 mg tablet 40 mg PO DAILY #90 tabs 10/03/23 11/29/23 11/28/23 Rx insulin NPH isoph U-100 human 100 See Rx Instructions .Route 10/22/23 11/29/23 11/28/23 Rx unit/mL subcutaneous suspension .COMPLEX #10 mL (Novolin N NPH U-100 Insulin isophane) metoprolol tartrate 100 mg tablet 100 mg PO BID #60 tabs 10/29/23 11/29/23 11/28/23 Rx acetaminophen 325 mg tablet 650 mg PO QID PRN Pain 11/29/23 11/29/23 11/28/23 History calcitriol 0.25 mcg capsule See Rx Instructions .Route .COMPLEX 11/29/23 11/29/23 11/28/23 History empagliflozin 25 mg tablet 25 mg PO DAILY 11/29/23 11/29/23 11/28/23 History (Jardiance) hitelmfp-awyxjtiv-khpba acid 400 1 tab PO DAILY 11/29/23 11/29/23 11/28/23 History mcg-vit K 20 mcg-lycop 300 mcg tablet (Men's One Daily) pantoprazole 40 mg tablet,delayed 40 mg PO BID 11/29/23 11/29/23 11/28/23 History release tramadol 50 mg tablet 100 mg PO Q8H PRN Pain 11/29/23 11/29/23 11/28/23 History Allergies Allergy/AdvReac Type Severity Reaction Status Date / Time metformin Allergy VOMITING Verified 11/29/23 07:45 pregabalin [From Lyrica] Allergy ADR-Fatigue Verified 11/29/23 08:16 d dulaglutide [From Trulicity] AdvReac Intermediate ADR-Vomitin Verified 11/29/23 07:45 g Current Medications Generic Name Dose Route Start Last Admin Trade Name Freq PRN Reason Stop Dose Admin Heparin Sodium (Porcine) 5,000 unit 11/29/23 12:52 11/29/23 13:33 Heparin 5,000 Unit/Ml Inj 1 Ml SUBCUT 5,000 unit Q12H MIO Administration Linezolid 600 mg in 300 mls @ 300 mls/hr 11/29/23 12:52 11/29/23 14:32 Zyvox Premix IV Infused Q12H MIO Infusion Protocol Insulin Human Lispro 0 unit 11/29/23 12:52 11/29/23 18:14 Insulin Lispro 100 Unit/1 Ml SUBCUT 4 unit WM&BEDTIME MIO Administration Protocol Morphine Sulfate 1 mg 11/29/23 12:52 11/29/23 14:35 Morphine 4 Mg/Ml Sdv 1 Ml IVP 1 mg Q4H PRN Administration SEVERE PAIN Pantoprazole Sodium 40 mg 11/29/23 18:00 11/29/23 18:[address] 40 Mg Tablet PO 40 mg BID MIO Administration PFSH Acute 2 PFSH: Medical History 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 Essential (primary) hypertension Gastro-esophageal reflux disease without esophagitis Hypoglycemia 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[place]'s syndrome Essential (primary) hypertension CVA (cerebral vascular accident) Hyperlipidemia CKD (chronic kidney disease) Surgical History History of esophagogastroduodenoscopy (EGD) History of tonsillectomy and adenoidectomy History of cholecystectomy History of colonoscopy Family History Other Diabetes Heart disease Social History Smoking and tobacco/nicotine status: never used tobacco/nicotine Second hand smoke exposure: No Alcohol intake: former Substance/Drug Use: never Caregiver/support person: Yes Lives independently: Yes Household members: spouse Marital status: service: No Current occupational status: retired Current gender identity: Male Special thomas needs: No Agree to transfusion: Yes Vitals/I&O/Wt Last Vital Signs Temp 97.9 F 11/29/23 17:55 Pulse 85 11/29/23 17:55 Resp 20 H 11/29/23 17:55 BP 101/57 11/29/23 17:55 Pulse Ox 96 11/29/23 17:55 O2 Del Method Room Air 11/29/23 17:55 11/29/23 11/29/23 11/29/23 06:59 14:59 22:59 Intake Total 3407.373 / 3407.373 Output Total 375 / 375 Balance 3407.373 / 3407.373 -375 / 3032.373 Weight last 48 hrs Weight 99.96 kg Weight 90.718 kg Physical Exam 2 Narrative: AWAKE , ALERT +NGT S1 S2 RRR per report lUNGS CLEAR PER REPORT + EDEMA Urinary Catheter Management: Pollard: Cath Placed During This Visit: yes Reason for Continuing Indwelling Catheter: Accurate Measurement of Urinary Output in Critically Ill Patients Urinary Catheter Date of Insertion: 11/29/23 Urinary Catheter Time of Insertion: 08:55 Data 11/29/23 08:17 11/29/23 11:36 Micro: Microbiology 11/29/23 08:17 Blood Culture - Preliminary Blood SPECIMEN COLLECTED 11/29/23 08:17 Blood Culture - Preliminary Blood SPECIMEN COLLECTED A&P Assessment and plan (1) Acute renal failure superimposed on stage 3 chronic kidney disease: Plan 1. Acute on chronic kidney disease stage III: Baseline creatinine is in the 2 range patient now presented with JIA with a creatinine of 7.3 associated with metabolic acidosis and hyperkalemia and volume overload. His current JIA most likely ATN in the setting of acute infection/UTI, and possible prerenal. -No obstruction on CT, hold SINDY inhibitors Lasix and Jardiance -Will start patient on bicarbonate drip and watch closely, though patient has elevated BNP his chest x-ray is clear and he is on room air, will back off on fluids if patient develops respiratory distress -2 g sodium restriction and 1500 mill fluid restriction -Avoid nephrotoxins and IV contrast studies. -No acute indication for dialysis currently, but if no improvement patient will need dialysis 2. Metabolic acidosis: Placed on bicarbonate drip, monitor 3. Pyelonephritis, on antibiotics 4. Question gastric outlet obstruction on CT, patient has NGT and general surgery to evaluate 5. Elevated BNP, echo pending Patient evaluated using audiovisual cart. Time spent 40 minutes. Consult Attestations 2 Medical Necessity Statement: per mediicne team Coding Level of Care Code Acute Code for Chg Fwd Diagnoses Acute renal failure superimposed on stage 3 chronic kidney disease N17.9; N18.30
[2023-11-29 20:12] LABS: Basophils % 0.1 %; Eosinophils % 0.1 %; Hematocrit 33.3 % (37-53); Lymphocytes # 1.1 10^3/uL (0.8-4.8); Lymphocytes % 5.5 %; Mean Corpuscular HGB Conc 32.7 g/dL (30-55); Mean Corpuscular Hemoglobin 29.9 pg (27-33); Mean Corpuscular Volume 91.2 fl (82-101); Mean Platelet Volume 11.3 fL (7.4-10.4); Monocytes # 0.6 10^3/uL (0.2-0.9); Monocytes % 2.8 %; Neutrophils # 18.68 10^3/uL (1.8-7.7); Neutrophils % 90.8 %; Nucleated Red Blood Cells % 0 %; Platelet Count 189 10^3/cmm (157-399); Red Blood Count 3.65 10^6/uL (3.85-5.65); Red Cell Distribution Width 14.1 % (12.1-15.1); White Blood Count 20.57 10^3/uL (3.29-11.43)
[2023-11-29] MEDS: meropenem 500 MG in sodium chloride 0.9% (plus) 50 ML 100 MG IV (20:29)
[2023-11-29 20:30] LABS: Glucose Point of Care 174 mg/dL (70-110)
[2023-11-29 20:35] LABS: Alanine Aminotransferase 28 U/L (0-41); Alkaline Phosphatase 527 U/L (40-130); Anion Gap 25.2 (5-19); Aspartate Amino Transferase 29 U/L (0-40); Blood Urea Nitrogen 69 mg/dL (8-23); Calcium 7.3 mg/dL (8.5-10.5); Carbon Dioxide 13 mmol/L (22-29); Chloride 97 mmol/L (98-107); Creatinine Clr Calc Pharmacy 11.1735; Globulin 3.6 g/dL (1.3-4.6); Glucose 167 mg/dL (65-115); Osmolality Calculated 294 mOsm/kg (285-295); Potassium 5.2 mmol/L (3.5-5.1); Sodium 130 mmol/L (136-145); Total Bilirubin 0.7 mg/dL (0.15-1.2); Total Protein 5.6 g/dL (6.6-8.7)
--- NOTE | 2023-11-29 20:46 | XRR_ITS ---
PROCEDURE INFORMATION: Exam: XR Chest Exam date and time: 11/29/2023 7:53 PM Age: 73 years old Clinical indication: Device placement; Patient HX: Ng tube placement TECHNIQUE: Imaging protocol: Radiologic exam of the chest. Views: 1 view. COMPARISON: CR XR chest 1V portable [id number] 11/29/2023 8:11 AM FINDINGS: Tubes, catheters and devices: Tip of the feeding tube is in the stomach. Lungs: Left lung base atelectasis. Pleural spaces: Unremarkable. No pleural effusion. No pneumothorax. Heart/Mediastinum: Unremarkable. No cardiomegaly. Vasculature: There are aortic arch calcifications. Bones/joints: Mild degenerative disease of the thoracic spine. XR/XR chest 1V portable [id number] IMPRESSION: Tip of the feeding tube is in the stomach.
[2023-11-29] MEDS: sodium bicarbonate 8.4% syr 150 MEQ in dextrose 5% 1,000 ML 125 MEQ IV (21:04)
[2023-11-29] MEDS: sodium bicarbonate 8.4% 1 mEq/mL 50mL Syr 150 MEQ XX (21:05)
[2023-11-29] MEDS: albumin 25 G/100 ML BAG 60 G IV (21:19)
[2023-11-30] VITALS (51 sets, daily range): BP systolic 83–132; BP diastolic 47–83; PULSE 37–100; RESP 13–22; TEMP 35.8–36.8; O2SAT 89–97; BMI 29.1
[2023-11-30] MEDS: heparin 5,000 unit/mL INJ 1 mL 5000 UNIT SUBCUT (00:34)
[2023-11-30] MEDS: linezolid premix 600 MG/300 ML PREMIX 300 MG IV ×2 (00:35→12:48)
[2023-11-30 05:03] LABS: Basophils # 0.1 10^3/uL (0.0-0.1); Basophils % 0.3 %; Eosinophils # 0.1 10^3/uL (0.0-0.8); Eosinophils % 0.6 %; Hematocrit 33.9 % (37-53); Lymphocytes # 1.9 10^3/uL (0.8-4.8); Lymphocytes % 9.9 %; Mean Corpuscular HGB Conc 31.9 g/dL (30-55); Mean Corpuscular Hemoglobin 29.6 pg (27-33); Mean Corpuscular Volume 92.9 fl (82-101); Mean Platelet Volume 11.5 fL (7.4-10.4); Monocytes # 0.5 10^3/uL (0.2-0.9); Monocytes % 2.6 %; Neutrophils # 16.19 10^3/uL (1.8-7.7); Neutrophils % 85.6 %; Nucleated Red Blood Cells % 0 %; Platelet Count 188 10^3/cmm (157-399); Red Blood Count 3.65 10^6/uL (3.85-5.65); Red Cell Distribution Width 14.2 % (12.1-15.1)
[2023-11-30 05:11] LABS: INR 1.72 (0.8-1.2)
[2023-11-30] MEDS: albumin 25 G/100 ML BAG 60 G IV ×3 (05:14→20:58)
[2023-11-30 05:23] LABS: Alanine Aminotransferase 25 U/L (0-41); Albumin Level 2.1 g/dL (3.5-5.2); Alkaline Phosphatase 543 U/L (40-130); Anion Gap 27.9 (5-19); Aspartate Amino Transferase 29 U/L (0-40); Blood Urea Nitrogen 68 mg/dL (8-23); Calcium 7.3 mg/dL (8.5-10.5); Carbon Dioxide 14 mmol/L (22-29); Chloride 92 mmol/L (98-107); Creatinine Clr Calc Pharmacy 11.4974; Globulin 3.8 g/dL (1.3-4.6); Glucose 246 mg/dL (65-115); Magnesium 1.5 mg/dL (1.7-2.3); Osmolality Calculated 296 mOsm/kg (285-295); Potassium 4.9 mmol/L (3.5-5.1); Sodium 129 mmol/L (136-145); Total Bilirubin 0.9 mg/dL (0.15-1.2); Total Protein 5.9 g/dL (6.6-8.7)
[2023-11-30 05:26] LABS: NT Pro B Type Natriuretic Pept 20363 pg/mL (0-125)
[2023-11-30 05:38] LABS: Phosphorus 10.4 mg/dL (2.5-4.5)
[2023-11-30 07:16] LABS: Glucose Point of Care 275 mg/dL (70-110)
--- NOTE | 2023-11-30 07:36 | P.CONIM_ITS ---
Providers/Reason For Consult 2 Consulting Physician/Specialty*: Dr. Tomas Collado, DO/General surgery Reason for Consult*: Possible gastric outlet obstruction Attending Physician: Trevor Reardon MD Primary Care Provider: Su Porter MD History of Present Illness History of Present Illness Sotero Canchola(Kwabena) is a 73 year old male with past medical history as below presented to the hospital due to shortness of breath and lower extremity edema. He also reports that he has had some mild epigastric pain for the past week along with some nausea and vomiting. He denies any hematemesis, constipation, diarrhea, hematochezia and/or melena. The pain is dull and constant. Palpation makes pain worse. Nothing makes pain better. The pain does not radiate. CT of the abdomen pelvis shows a dilated fluid-filled stomach with possible gastric outlet obstruction versus obstruction in the duodenum Review of Systems 2 General: Reports: 10 or more systems reviewed and unremarkable except in HPI and below Medications/Allergies Home Medications Medication Instructions Recorded Confirmed Last Taken Type blood sugar diagnostic (FreeStyle #100 ea 08/25/20 11/29/23 Unknown Rx Lite Strips) lancets 28 gauge (FreeStyle #200 ea 05/15/22 11/29/23 Unknown Rx Lancets) pen needle, diabetic 32 gauge x #100 ea 06/02/22 11/29/23 Unknown Rx 1/4 (Comfort EZ Pen [place]) blood sugar diagnostic (Blood #100 ea 09/26/22 11/29/23 Unknown Rx Glucose Test strips) insulin syringe-needle U-100 0.5 #200 ea 09/26/22 11/29/23 Unknown Rx mL 31 gauge x 5/16 (BD Insulin Syringe Ultra-Fine) insulin regular human 100 unit/mL See Rx Instructions .Route 05/04/23 11/29/23 11/28/23 Rx injection solution (Novolin R .COMPLEX #10 mL Regular U-100 Insulin) amitriptyline 10 mg tablet 20 mg (2 x 10 mg) PO DAILY #90 tabs 05/30/23 11/29/23 11/28/23 Rx amlodipine 10 mg tablet 10 mg PO DAILY #90 tabs 07/25/23 11/29/23 11/28/23 Rx clopidogrel 75 mg tablet (Plavix) 75 mg PO DAILY #90 tabs 07/25/23 11/29/23 11/28/23 Rx lisinopril 40 mg tablet 40 mg PO DAILY #90 tabs 07/25/23 11/29/23 11/28/23 Rx simvastatin 40 mg tablet 40 mg PO DAILY #90 tabs 07/25/23 11/29/23 11/28/23 Rx furosemide 40 mg tablet 40 mg PO DAILY #90 tabs 10/03/23 11/29/23 11/28/23 Rx insulin NPH isoph U-100 human 100 See Rx Instructions .Route 10/22/23 11/29/23 11/28/23 Rx unit/mL subcutaneous suspension .COMPLEX #10 mL (Novolin N NPH U-100 Insulin isophane) metoprolol tartrate 100 mg tablet 100 mg PO BID #60 tabs 10/29/23 11/29/23 11/28/23 Rx acetaminophen 325 mg tablet 650 mg PO QID PRN Pain 11/29/23 11/29/23 11/28/23 History calcitriol 0.25 mcg capsule See Rx Instructions .Route .COMPLEX 11/29/23 11/29/23 11/28/23 History empagliflozin 25 mg tablet 25 mg PO DAILY 11/29/23 11/29/23 11/28/23 History (Jardiance) aadqossb-mvwtidqs-ppmpq acid 400 1 tab PO DAILY 11/29/23 11/29/23 11/28/23 History mcg-vit K 20 mcg-lycop 300 mcg tablet (Men's One Daily) pantoprazole 40 mg tablet,delayed 40 mg PO BID 11/29/23 11/29/23 11/28/23 History release tramadol 50 mg tablet 100 mg PO Q8H PRN Pain 11/29/23 11/29/23 11/28/23 History Allergies Allergy/AdvReac Type Severity Reaction Status Date / Time metformin Allergy VOMITING Verified 11/29/23 07:45 pregabalin [From Lyrica] Allergy ADR-Fatigue Verified 11/29/23 08:16 d dulaglutide [From Trulicity] AdvReac Intermediate ADR-Vomitin Verified 11/29/23 07:45 g Current Medications Generic Name Dose Route Start Last Admin Trade Name Freq PRN Reason Stop Dose Admin Heparin Sodium (Porcine) 5,000 unit 11/29/23 12:52 11/30/23 00:34 Heparin 5,000 Unit/Ml Inj 1 Ml SUBCUT 5,000 unit Q12H MIO Administration Meropenem 500 mg/ Sodium 50 mls @ 100 mls/hr 11/29/23 20:00 11/29/23 21:09 Chloride IV Infused Q12H MIO Infusion Protocol Linezolid 600 mg in 300 mls @ 300 mls/hr 11/29/23 12:52 11/30/23 04:14 Zyvox Premix IV Infused Q12H MIO Infusion Protocol Albumin Human 25 g in 100 mls @ 60 mls/hr 11/29/23 21:00 11/30/23 06:55 Albumin IV Infused Q8H MIO Infusion Insulin Human Lispro 0 unit 11/29/23 12:52 11/29/23 20:36 Insulin Lispro 100 Unit/1 Ml SUBCUT 4 unit WM&BEDTIME MIO Administration Protocol Morphine Sulfate 1 mg 11/29/23 12:52 11/29/23 14:35 Morphine 4 Mg/Ml Sdv 1 Ml IVP 1 mg Q4H PRN Administration SEVERE PAIN Pantoprazole Sodium 40 mg 11/29/23 18:00 11/29/23 18:[address] 40 Mg Tablet PO 40 mg BID MIO Administration PFSH Acute 2 PFSH: Medical History 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 Essential (primary) hypertension Gastro-esophageal reflux disease without esophagitis Hypoglycemia 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 Essential (primary) hypertension CVA (cerebral vascular accident) Hyperlipidemia CKD (chronic kidney disease) Surgical History History of esophagogastroduodenoscopy (EGD) History of tonsillectomy and adenoidectomy History of cholecystectomy History of colonoscopy Family History Other Diabetes Heart disease Social History Smoking and tobacco/nicotine status: never used tobacco/nicotine Second hand smoke exposure: No Alcohol intake: former Substance/Drug Use: never Caregiver/support person: Yes Lives independently: Yes Household members: spouse Marital status: service: No Current occupational status: retired Current gender identity: Male Special thomas needs: No Agree to transfusion: Yes Vitals/I&O/Wt Last Vital Signs Temp 97.7 F 11/30/23 04:55 Pulse 81 11/30/23 06:00 Resp 15 11/30/23 04:00 BP 105/59 11/30/23 04:00 Pulse Ox 94 11/30/23 04:00 O2 Del Method Room Air 11/30/23 00:00 11/29/23 11/30/23 11/30/23 22:59 06:59 14:59 Intake Total 50 / 3457.373 2650 / 6107.373 Output Total 375 / 375 700 / 1075 Balance -325 / 3082.373 1950 / 5032.373 Weight last 48 hrs Weight 220 lb 6 oz Weight 200 lb Physical Exam 2 Narrative: General : Patient is well developed , no acute distress, oriented x3 Head : Normal cephalic, a-traumatic. Ears : Pinnae and external canal are normal. Hearing is normal. Eyes : PERRLA, Sclera and injection are normal. No conjunctival discharge. Nose : Mucous membranes are without erythema. Throat : buccal mucosa is normal, gums are without significant recession or hypertrophy. Lungs : Equal chest rise bilaterally, no use of accessory muscles, trachea is midline. Cor : Rate and rhythm are normal. Abdomen : Soft, ND, minimal epigastric tenderness, no g/r/m Extremities : Anasarca, no cyanosis or clubbing, dorsalis pedis pulses are present bilaterally, non-tender to palpation of calves. Upper extremities are normal bilaterally. Back : non-tender to palpation, no CVA tenderness. Neuro : CN II - XII intact, Upper and lower extremities have equal and full strength Urinary Catheter Management: Pollard: Cath Placed During This Visit: yes Reason for Continuing Indwelling Catheter: Accurate Measurement of Urinary Output in Critically Ill Patients Urinary Catheter Date of Insertion: 11/29/23 Urinary Catheter Time of Insertion: 08:55 Data 11/30/23 04:25 11/30/23 04:25 Micro: Microbiology 11/29/23 08:17 Blood Culture - Preliminary Blood SPECIMEN COLLECTED 11/29/23 08:17 Blood Culture - Preliminary Blood SPECIMEN COLLECTED A&P Assessment and plan (1) Gastric distention: Possible gastric outlet obstruction Plan Continue NGT to LIWS Another surgeon is going to be taking over today and the weekend. He may need an EGD. I will pass this information along Medical management per hospitalist Coding Level of Care Code 08894 Diagnoses Gastric distention K31.89
[2023-11-30] MEDS: meropenem 500 MG in sodium chloride 0.9% (plus) 50 ML 100 MG IV (07:44)
[2023-11-30] MEDS: sodium bicarbonate 150 MEQ in dextrose 5% 1,000 ML 125 MEQ IV ×2 (07:44→17:56)
[2023-11-30] MEDS: morphine 4 mg/mL SDV 1 mL 1 MG IVP ×3 (07:49→19:57)
[2023-11-30] MEDS: insulin lispro 100 unit/1 mL SUBCUT ×4 (08:02→21:44)
--- NOTE | 2023-11-30 10:09 | PC.SOCIAL ---
IMM Update pg 2 of IMM updated and reviewed w/ patient. Copy signed and copy provided. Copy dated, initialed and placed in chart.
--- NOTE | 2023-11-30 12:34 | ECG_ITS ---
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 Measurements Intervals [place] Rate: 80 P: 24 NM: 220 QRS: 32 QRSD: 138 T: -54 QT: 401 QTc: 465 Interpretive Statements SINUS RHYTHM WITH FIRST DEGREE AV BLOCK INTRAVENTRICULAR CONDUCTION DELAY [130+ ms QRS DURATION] PROBABLE INFERIOR MYOCARDIAL INFARCTION , OF INDETERMINATE AGE [35 ms Q WAVE IN II/aVF] Compared to ECG 11/30/2023 12:34:10 First degree AV block now present Atrial fibrillation no longer present Myocardial infarct finding still present Electronically Signed On 11-30-2023 22:04:17 CDT by Aaron Villalba M.D. [id number]
--- NOTE | 2023-11-30 12:34 | ECG_ITS ---
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 Measurements Intervals [place] Rate: 73 P: 0 OK: 0 QRS: 34 QRSD: 137 T: -31 QT: 434 QTc: 479 Interpretive Statements ATRIAL FIBRILLATION INTRAVENTRICULAR CONDUCTION DELAY [130+ ms QRS DURATION] PROBABLE INFERIOR MYOCARDIAL INFARCTION , OF INDETERMINATE AGE [35 ms Q WAVE IN II/aVF] Compared to ECG 11/29/2023 10:13:27 Myocardial infarct finding now present Electronically Signed On 11-30-2023 12:56:33 CDT by Aaron Villalba M.D. [email or web address].[email or web address]/store/[id number]
--- NOTE | 2023-11-30 12:36 | ECG_ITS ---
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 Measurements Intervals [place] Rate: 81 P: 23 MD: 221 QRS: 35 QRSD: 138 T: -37 QT: 402 QTc: 469 Interpretive Statements SINUS RHYTHM WITH FIRST DEGREE AV BLOCK INTRAVENTRICULAR CONDUCTION DELAY [130+ ms QRS DURATION] PROBABLE INFERIOR MYOCARDIAL INFARCTION , OF INDETERMINATE AGE [35 ms Q WAVE IN II/aVF] Compared to ECG 11/30/2023 12:34:10 First degree AV block now present Atrial fibrillation no longer present Myocardial infarct finding still present Electronically Signed On 11-30-2023 12:56:49 CDT by Aaron Villalba M.D. [email or web address]/store/[id number]
[2023-11-30 12:40] LABS: Glucose Point of Care 252 mg/dL (70-110)
[2023-11-30] MEDS: aspirin 81 mg EC Tablet PO (12:48)
--- NOTE | 2023-11-30 12:57 | XRR_ITS ---
PROCEDURE INFORMATION: Exam: XR Chest Exam date and time: 11/30/2023 12:10 PM Age: 73 years old Clinical indication: Shortness of breath; Additional info: SOB TECHNIQUE: Imaging protocol: Radiologic exam of the chest. Views: 1 view. COMPARISON: CR (CHEST, ) 11/29/2023 7:53 PM FINDINGS: Lungs: No focal consolidation. Left basilar subsegmental atelectasis. Pleural spaces: No evidence of pneumothorax. No evidence of pleural effusion. Heart/Mediastinum: Cardiomediastinal silhouette is within normal limits. Enteric tube in place with tip in the region of the gastric body and side hole distal to the GE junction. Bones/joints: No evidence of acute osseous abnormality. XR/XR chest 1V portable [id number] IMPRESSION: 1. No acute cardiopulmonary abnormality.
--- NOTE | 2023-11-30 12:57 | XRR_ITS ---
PROCEDURE INFORMATION: Exam: XR Abdomen Exam date and time: 11/30/2023 12:12 PM Age: 73 years old Clinical indication: Other: Abdomen distention TECHNIQUE: Imaging protocol: Radiologic exam of the abdomen. Views: Frontal supine view of the abdomen. 1 View. COMPARISON: CR XR KUB portable [id number] 11/29/2023 12:03 PM FINDINGS: Gastrointestinal tract: Enteric tube in place with tip in the region of the gastric body and side hole distal to the GE junction. Grossly nonobstructive bowel gas pattern. Bones/joints: No evidence of acute osseous abnormality. XR/XR KUB portable [id number] IMPRESSION: 1. Enteric tube in place with tip in the region of the gastric body and side hole distal to the GE junction.
[2023-11-30 13:43] LABS: Alanine Aminotransferase 23 U/L (0-41); Albumin Level 2.3 g/dL (3.5-5.2); Alkaline Phosphatase 495 U/L (40-130); Aspartate Amino Transferase 26 U/L (0-40); Blood Urea Nitrogen 67 mg/dL (8-23); Calcium 7.2 mg/dL (8.5-10.5); Carbon Dioxide 15 mmol/L (22-29); Chloride 90 mmol/L (98-107); Creatinine Clr Calc Pharmacy 11.8877; Globulin 3.4 g/dL (1.3-4.6); Glucose 273 mg/dL (65-115); NT Pro B Type Natriuretic Pept 20610 pg/mL (0-125); Osmolality Calculated 295 mOsm/kg (285-295); Sodium 128 mmol/L (136-145); Total Bilirubin 0.9 mg/dL (0.15-1.2); Total Protein 5.7 g/dL (6.6-8.7)
[2023-11-30 13:48] LABS: Anion Gap 27.6 (5-19); Potassium 4.6 mmol/L (3.5-5.1); Troponin(5th) Baseline 336 ng/L (0-15)
[2023-11-30 13:49] LABS: ABG PCO2 33.6 mmHg (35-45); Arterial Blood Gas Hematocrit 32.5 % (42-52); Blood Gas Allen Test Pos; Blood Gas Operator Identificat MONRO; Blood Gas Sample Site Brachial, right; Blood Gas Sample Type Arterial; HCO3 ABG 16.5 mmol/L (22-26); Oxygen Device ROOM AIR; PO2 ABG 69.7 mmHg (80.0-100.0); PO2 FiO2 Ratio Arterial Blood 0
--- NOTE | 2023-11-30 13:49 | P.PN_ITS ---
Subjective 2 Subjective: Patient was seen multiple times throughout the morning -Early in the morning he was seen, alert and oriented x 3, following all commands, denies any chest pain, does feel nauseous, he does report vomiting at home, we discussed his CT abdomen findings for gastric outlet obstruction, he has an NG tube in place, he had about 400 mL output, he has a creatinine of 6.9, urine output has been a liter, is on a bicarbonate drip, nephrology has been consulted, general surgery has been consulted for the EGD however they plan on holding off to monitor renal status, has been n.p.o. -We discussed his NSTEMI, his echocardio gram shows EF low at 45% without significant wall motion abnormalities, had a detailed discussion with cardiology about these results given his creatinine, currently not a candidate for coronary angiography and if it was required certainly we will put him into dialysis, for now we will medically manage, consult cardiology, consider stress testing on Sunday patient was seen, due to development of hypotension and bradycardia, underlying rhythm appeared sinus bradycardia alert oriented x 3, following all commands, on room air, reporting nausea, repeated EKG looks sinus rhythm but does have other episodes in which it shows A-fib with slow ventricular response, troponins elevated at 336 no chest pain complaints, creatinine 6.6, will potassium is within normal limits, blood sugars within normal limits, his NG tube was hooked to low intermittent suction had about 300 mL of output, repeat chest x-ray, KUB, PICC line ordered, reexamined again he is alert oriented x 3, following all commands, now normotensive, heart rate sinus rhythm, in the 80s, is on room air, continues to have pitting edema, but denies any significant shortness of breath Vitals/I&O/Wt Last Vital Signs Temp 97.5 F L 11/30/23 12:30 Pulse 81 11/30/23 13:00 Resp 19 H 11/30/23 13:21 BP 122/67 11/30/23 13:00 Pulse Ox 92 11/30/23 13:00 O2 Del Method Room Air 11/30/23 00:00 11/29/23 11/30/23 11/30/23 22:59 06:59 14:59 Intake Total 50 / 3457.373 2650 / 6107.373 50 / 50 Output Total 375 / 375 700 / 1075 Balance -325 / 3082.373 1950 / 5032.373 50 / 50 Weight last 48 hrs Weight 97.579 kg Weight 99.96 kg Weight 90.718 kg Physical Exam 2 Const: COMMON NORMALS: no acute distress and patient oriented x3 Neck/C-Spine: COMMON NORMALS: no JVD Resp: COMMON NORMALS: normal respiratory effort, No retractions, No use of accessory muscles and clear to auscultation bilaterally AUSCULTATION: clear to auscultation bilaterally Cardio: COMMON NORMALS: no JVD, regular rate, regular rhythm, S1 normal heart sound present and S2 normal heart sound present RATE: regular rate RHYTHM: regular rhythm HEART SOUNDS: S1 normal heart sound present and S2 normal heart sound present GI: COMMON NORMALS: Normal to inspection, nondistended, normoactive bowel sounds present and non-tender Extremity: COMMON NORMALS: no pedal edema Neuro: COMMON NORMALS: patient oriented x3 Psych: COMMON NORMALS: mental status grossly normal Urinary Catheter Management: Pollard: Cath Placed During This Visit: yes Reason for Continuing Indwelling Catheter: Accurate Measurement of Urinary Output in Critically Ill Patients Urinary Catheter Date of Insertion: 11/29/23 Urinary Catheter Time of Insertion: 08:55 Data 11/30/23 04:25 11/30/23 13:01 Micro: Microbiology 11/29/23 08:17 Blood Culture - Preliminary Blood NEGATIVE TO DATE 11/29/23 08:17 Blood Culture - Preliminary Blood NEGATIVE TO DATE A&P Assessment and plan (1) Pyelonephritis: (2) UTI (urinary tract infection): (3) Acute renal failure superimposed on stage 3 chronic kidney disease: (4) Hyperkalemia: (5) NSTEMI (non-ST elevated myocardial infarction): (6) Acute exacerbation of CHF (congestive heart failure): (7) Fluid overload: (8) Hypomagnesemia: (9) Anasarca: (10) Wall motion abnormality of inferior wall of left ventricle: (11) Bradycardia: (12) Gastric outlet obstruction: Plan Acute pyelonephritis, with right CVA tenderness, UTI -meropenem, Zyvox -Follow urine cultures, blood cultures Acute renal failure on chronic kidney disease -Creatinine up to 6.9, continue bicarb drip ? Given elevated BNP, bilateral extreme edema, shortness of breath, anasarca will hold off on further fluid therapy due to risk of fluid overload ? For now nephrology is monitoring creatinine, possible for future dialysis Hyperkalemia, resolved ? Status post calcium gluconate, insulin, D50, sodium bicarb, Kayexalate in the emergency room -Likely secondary renal failure ? Recheck serum potassium level ? Serial EKGs, serial troponins, telemetry monitoring Metabolic acidosis, likely secondary renal failure Acute systolic and diastolic CHF exacerbation ? Secondary to fluid overload, anasarca, lower extreme edema, ? Creatinine 7.3, troponin 390, BNP over 18,000 ? Will consider Lasix based on clinical progress ? Patient might require dialysis NSTEMI, with wall motion abnormalities on echo ? No chest pain complaints, -EKG no acute ST-T wave changes ? Continue Plavix, aspirin, heparin drip ? Cardiac echo CONCLUSIONS LV systolic function is mildly reduced with EF of 45 to 50%. Basal inferoseptal and anteroseptal peoples of moderate to severe hypokinesis. Mild mitral regurgitation Trace aortic regurgitation Mild tricuspid regurgitation Mild pulmonic regurgitation Ascending aorta is dilated with diameter of 3.98 cm. Compared to prior echocardiogram from 2017, LV systolic function has decreased ? Serial EKGs, serial troponins, telemetry monitoring -Cardiology consulted Bradycardia, A-fib with slow ventricular response, -Atropine as needed -Repeat blood work, EKGs, chest x-ray, KUB Anasarca as above Sepsis secondary to UTI, pyelonephritis given leukocytosis, elevated inflammatory markers, Gastric outlet obstruction 1. Marked distention of the stomach with fluid. There is a change in caliber in the duodenal C-loop. Spasm versus gastric outlet obstruction or obstructing neoplasm within the differential. -Keep n.p.o., KUB, monitor NG tube output -General surgery consulted Full code Heparin for DVT prophylaxis Attestations 2 Medical Necessity Statement*: Patient requires hospitalization, for NSTEMI, fluid overload, metabolic acidosis, acute renal failure, gastric outlet obstruction, NSTEMI, wall motion abnormalities on echo Diagnoses Pyelonephritis N12 UTI (urinary tract infection) N39.0 Acute renal failure superimposed on stage 3 chronic kidney disease N17.9; N18.30 Hyperkalemia E87.5 NSTEMI (non-ST elevated myocardial infarction) I21.4 Acute exacerbation of CHF (congestive heart failure) I50.9 Fluid overload E87.70 Hypomagnesemia E83.42 Anasarca R60.1 Wall motion abnormality of inferior wall of left ventricle R94.30 Bradycardia R00.1 Gastric outlet obstruction K31.1
--- NOTE | 2023-11-30 13:56 | XR_ITS ---
WS: [id number] PORTABLE CHEST HISTORY: Post PICC insertion COMPARISON: None available. Left-sided PICC line has been placed with tip terminating at the caval atrial junction. Lung volumes are decreased. Mild fluid overload. No pleural effusion or pneumothorax. Cardiac size: Mildly enlarged cardiac silhouette. Mediastinum/Aorta: Mild atherosclerosis aorta. No osseous abnormality seen. Nasogastric placed with tip in the stomach. IMPRESSION: Satisfactory placement left-sided PICC line.
[2023-11-30 13:58] LABS: Basophils % 0.2 %; Eosinophils # 0.1 10^3/uL (0.0-0.8); Eosinophils % 0.4 %; Hematocrit 30.5 % (37-53); Lymphocytes % 4.8 %; Mean Corpuscular HGB Conc 32.8 g/dL (30-55); Mean Corpuscular Hemoglobin 29.4 pg (27-33); Mean Corpuscular Volume 89.7 fl (82-101); Mean Platelet Volume 11.6 fL (7.4-10.4); Monocytes # 0.4 10^3/uL (0.2-0.9); Neutrophils % 91.5 %; Nucleated Red Blood Cells % 0 %; Platelet Count 155 10^3/cmm (157-399); Red Cell Distribution Width 14.4 % (12.1-15.1); White Blood Count 20.76 10^3/uL (3.29-11.43)
[2023-11-30] MEDS: heparin drip 25,000 UNIT/500 ML PREMIX 27 UNIT IV (15:01)
[2023-11-30] MEDS: ondansetron 2 mg/ML SDV 2 mL 4 MG IVP (15:05)
--- NOTE | 2023-11-30 15:17 | PC.NURSE ---
Triple lumen PICC placed to left basilic vein. Referred to vascular access nurse for PICC placement due to possible need for antibiotics > 14 days as well as use of irritant IV meds. Risks and benefits discussed with patient and and informed consent obtained from . Pt with history of trauma to right arm and shoulder. Left arm assessed with left basilic vein measuring 4 mm, straight, and apparent best choice for placement. Using sterile technique and MST, right basilc vein accessed x 1 stick. Mid-arm circumference measured 10 cm from left AC 30 cm. Trimmed cath 49 cm with 3 cm external length noted. CXR shows tip in distal SVC, cavoatrial junction, in good position for use per radiologist. Line secured with stat-lock. Insertion site covered with Biopatch and TSM. Report given to bedside nurse, Francia.
[2023-11-30 15:21] LABS: Troponin 5 2HR Delta -4.2 ABS# (0-10)
[2023-11-30 15:22] LABS: Troponin 5 2HR 331.8 ng/L (0-15)
[2023-11-30] MEDS: DOPamine drip 400 MG/250 ML PREMIX 18.3000000000000007 MG IV (15:31)
[2023-11-30] MEDS: FUROsemide 10 mg/mL SDV 4mL 40 MG IVP (15:31)
--- NOTE | 2023-11-30 15:41 | P.PN_ITS ---
Subjective 2 Subjective: uop low @ 100 cc/ all day on bicarb gtt Medications: Reviewed: Yes Vitals/I&O/Wt Last Vital Signs Temp 97.5 F L 11/30/23 12:30 Pulse 81 11/30/23 13:00 Resp 19 H 11/30/23 13:21 BP 122/67 11/30/23 13:00 Pulse Ox 92 11/30/23 13:00 O2 Del Method Room Air 11/30/23 00:00 11/30/23 11/30/23 11/30/23 06:59 14:59 22:59 Intake Total 2650 / 6107.373 450 / 450 Output Total 700 / 1075 Balance 1950 / 5032.373 450 / 450 Weight last 48 hrs Weight 97.579 kg Weight 99.96 kg Weight 90.718 kg Physical Exam 2 Narrative: AWAKE , ALERT +NGT S1 S2 RRR per report lUNGS CLEAR PER REPORT + EDEMA Urinary Catheter Management: Pollard: Cath Placed During This Visit: yes Reason for Continuing Indwelling Catheter: Accurate Measurement of Urinary Output in Critically Ill Patients Urinary Catheter Date of Insertion: 11/29/23 Urinary Catheter Time of Insertion: 08:55 Data 11/30/23 13:38 11/30/23 13:01 Micro: Microbiology 11/29/23 08:17 Blood Culture - Preliminary Blood NEGATIVE TO DATE 11/29/23 08:17 Blood Culture - Preliminary Blood NEGATIVE TO DATE A&P Assessment and plan (1) Acute renal failure superimposed on stage 3 chronic kidney disease: Plan 1. Acute on chronic kidney disease stage III: Baseline creatinine is in the 2 range patient now presented with JIA with a creatinine of 7.3 associated with metabolic acidosis and hyperkalemia and volume overload. His current JIA most likely ATN in the setting of acute infection/UTI, and possible prerenal. -No obstruction on CT, hold SINDY inhibitors Lasix and Jardiance - on bicarbonate drip and watch closely, No improvement in renal fxn and UOP dropped - request temporary HD catheter placement today -2 g sodium restriction and 1500 mill fluid restriction -Avoid nephrotoxins and IV contrast studies. 2. Metabolic acidosis: Placed on bicarbonate drip, monitor 3. Pyelonephritis, on antibiotics 4. Question gastric outlet obstruction on CT, patient has NGT and general surgery following , plan for EGD today 5. Elevated BNP, echo pending Patient evaluated using audiovisual cart. Time spent 20 minutes. Attestations 2 Medical Necessity Statement*: per mediicne Coding Level of Care Code Acute Code for Chg Fwd Diagnoses Acute renal failure superimposed on stage 3 chronic kidney disease N17.9; N18.30
--- NOTE | 2023-11-30 16:08 | PM.CONSULT ---
Providers/Reason For Consult Consulting Physician/Specialty*: PRASHANT Aguirre MD/cardiology Reason for Consult*: Patient with elevated troponin T/abnormal echocardiogram/acute renal failure and features of urosepsis Requesting Physician: Dr. Reardon Attending Physician: Trevor Reardon MD Primary Care Provider: Su Porter MD History of Present Illness History of Present Illness Sotero Canchola(Kwabena) is a 73 year old male with a longstanding history for diabetes, essential benign hypertension, dyslipidemia, chronic kidney disease and CVA apparently has been undergoing treatment for UTI as an outpatient for the last 1 month or so. For the last 2 weeks, has been noticing swelling of the lower extremities progressed to swelling of the scrotum and the penis. He was finding it difficult to navigate. He has been having some amount of nausea. Because of his worsening symptoms, he was brought to the emergency room. He was found to have features of acute on chronic kidney disease, pyelonephritis and elevated troponin T. Echocardiogram revealed wall motion abnormalities with a diminished LV ejection fraction. Cardiology consult is requested for further cardiac evaluation recommendations. This patient has no previous history for coronary artery disease, myocardial infarction or congestive heart failure. He never had any chest pain. He had a couple falls recently and was complaining of left shoulder pain. He did not have any unusual shortness of breath. He has a history of chronic abdominal pain/chronic pancreatitis. He had a multiple stent placement in the pancreas in [place]. 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 He was able to ambulate with a walker or cane. He occasionally had some slurring of speech especially towards the evening. No history for smoking abuse, alcohol abuse or any substance abuse. One of his younger brothers had a myocardial infarction in his 40s. Two of his sisters had permanent pacer implantation, in their old age. One of his sisters had a CVA. No other relevant family history. Since the hospital admission, his kidney function seems to be getting worse. He also was found to have features of a gastric outlet obstruction. An upper endoscopy is being scheduled to evaluate the outlet obstruction. Review of Systems Narrative: CONSTITUTIONAL: No fever or chills. EYES: No blurring of vision or other visual disturbances lately. ENT: No hoarseness of voice, auditory disturbances or sore throat. Somewhat hard of hearing CARDIOVASCULAR: As mentioned above. RESPIRATORY: No significant cough. GASTROINTESTINAL: Nausea and abdominal pain as mentioned above GENITOURINARY: Chronic kidney disease as mentioned above. Recent UTI INTEGUMENTARY: No skin rashes or history of skin cancer. NEURO: History of CVA in 2017 with residual left-sided weakness PSYCHIATRIC: No history of psychosis or major depression. HEMATOLOGIC: No bleeding disorders or significant anemia. ENDOCRINE: Insulin requiring diabetes MUSCULOSKELETAL: No recent joint pain or swelling. ALLERGY/IMMUNOLOGY: As mentioned above. Medications/Allergies Home Medications Medication Instructions Recorded Confirmed Last Taken Type blood sugar diagnostic (FreeStyle #100 ea 08/25/20 11/29/23 Unknown Rx Lite Strips) lancets 28 gauge (FreeStyle #200 ea 05/15/22 11/29/23 Unknown Rx Lancets) pen needle, diabetic 32 gauge x #100 ea 06/02/22 11/29/23 Unknown Rx 1/4 (Comfort EZ Pen [place]) blood sugar diagnostic (Blood #100 ea 09/26/22 11/29/23 Unknown Rx Glucose Test strips) insulin syringe-needle U-100 0.5 #200 ea 09/26/22 11/29/23 Unknown Rx mL 31 gauge x 5/16 (BD Insulin Syringe Ultra-Fine) insulin regular human 100 unit/mL See Rx Instructions .Route 05/04/23 11/29/23 11/28/23 Rx injection solution (Novolin R .COMPLEX #10 mL Regular U-100 Insulin) amitriptyline 10 mg tablet 20 mg (2 x 10 mg) PO DAILY #90 tabs 05/30/23 11/29/23 11/28/23 Rx amlodipine 10 mg tablet 10 mg PO DAILY #90 tabs 07/25/23 11/29/23 11/28/23 Rx clopidogrel 75 mg tablet (Plavix) 75 mg PO DAILY #90 tabs 07/25/23 11/29/23 11/28/23 Rx lisinopril 40 mg tablet 40 mg PO DAILY #90 tabs 07/25/23 11/29/23 11/28/23 Rx simvastatin 40 mg tablet 40 mg PO DAILY #90 tabs 07/25/23 11/29/23 11/28/23 Rx furosemide 40 mg tablet 40 mg PO DAILY #90 tabs 10/03/23 11/29/23 11/28/23 Rx insulin NPH isoph U-100 human 100 See Rx Instructions .Route 10/22/23 11/29/23 11/28/23 Rx unit/mL subcutaneous suspension .COMPLEX #10 mL (Novolin N NPH U-100 Insulin isophane) metoprolol tartrate 100 mg tablet 100 mg PO BID #60 tabs 10/29/23 11/29/23 11/28/23 Rx acetaminophen 325 mg tablet 650 mg PO QID PRN Pain 11/29/23 11/29/23 11/28/23 History calcitriol 0.25 mcg capsule See Rx Instructions .Route .COMPLEX 11/29/23 11/29/23 11/28/23 History empagliflozin 25 mg tablet 25 mg PO DAILY 11/29/23 11/29/23 11/28/23 History (Jardiance) difzogpr-xuzmvptz-wccjv acid 400 1 tab PO DAILY 11/29/23 11/29/23 11/28/23 History mcg-vit K 20 mcg-lycop 300 mcg tablet (Men's One Daily) pantoprazole 40 mg tablet,delayed 40 mg PO BID 11/29/23 11/29/23 11/28/23 History release tramadol 50 mg tablet 100 mg PO Q8H PRN Pain 11/29/23 11/29/23 11/28/23 History Allergies Allergy/AdvReac Type Severity Reaction Status Date / Time metformin Allergy VOMITING Verified 11/29/23 07:45 pregabalin [From Lyrica] Allergy ADR-Fatigue Verified 11/29/23 08:16 d dulaglutide [From Trulicity] AdvReac Intermediate ADR-Vomitin Verified 11/29/23 07:45 g Current Medications Generic Name Dose Route Start Last Admin Trade Name [place] PRN Reason Stop Dose Admin Amitriptyline HCl 25 mg 11/30/23 09:00 11/30/23 07:58 Amitriptyline 25 Mg Tablet PO Not Given DAILY MIO Aspirin 81 mg 11/30/23 12:30 11/30/23 12:48 Aspirin 81 Mg Ec Tablet PO 81 mg DAILY MIO Administration Atorvastatin Calcium 40 mg 11/30/23 09:00 11/30/23 07:58 Atorvastatin 40 Mg Tablet PO Not Given DAILY MIO Clopidogrel Bisulfate 75 mg 11/30/23 09:00 11/30/23 07:58 Clopidogrel 75 Mg Tablet PO Not Given DAILY MIO Meropenem 500 mg/ Sodium 50 mls @ 100 mls/hr 11/29/23 20:00 11/30/23 08:14 Chloride IV Infused Q12H MIO Infusion Protocol Linezolid 600 mg in 300 mls @ 300 mls/hr 11/29/23 12:52 11/30/23 13:48 Zyvox Premix IV Infused Q12H [facility] Infusion Protocol Albumin Human 25 g in 100 mls @ 60 mls/hr 11/29/23 21:00 11/30/23 14:28 Albumin IV Infused Q8H MIO Infusion Sodium Bicarbonate 150 meq/ 1,150 mls @ 125 mls/hr 11/30/23 06:30 11/30/23 07:44 Dextrose IV 125 mls/hr .Q9H12M MIO Administration Heparin Sodium/Sodium Chloride 25,000 unit in 500 mls @ 0 mls/hr 11/30/23 12:30 11/30/23 15:01 Heparin Drip IV 13.83 unit/kg/hr .Q0M MIO 27 mls/hr Administration Protocol Per Protocol Dopamine HCl/Dextrose 400 mg in 250 mls @ 18.296 mls/hr 11/30/23 15:00 11/30/23 15:31 Intropin Drip IV 5 mcg/kg/min CONT MIO 18.3 mls/hr Administration Protocol 5 MCG/KG/MIN Insulin Human Lispro 0 unit 11/29/23 12:52 11/30/23 12:47 Insulin Lispro 100 Unit/1 Ml SUBCUT 8 unit WM&BEDTIME MIO Administration Protocol Morphine Sulfate 1 mg 11/29/23 12:52 11/30/23 13:21 Morphine 4 Mg/Ml Sdv 1 Ml IVP 1 mg Q4H PRN Administration SEVERE PAIN Ondansetron HCl 4 mg 11/29/23 12:52 11/30/23 15:05 Ondansetron 2 Mg/Ml Sdv 2 Ml IVP 4 mg Q6H PRN Administration NAUSEA AND VOMITING Pantoprazole Sodium 40 mg 11/29/23 18:00 11/30/23 07:[address] 40 Mg Tablet PO Not Given BID [facility] PFSH Acute PFSH: Medical History (Updated 11/30/23 @ 17:19 by Shira Aguirre MD) 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 Essential (primary) hypertension Gastro-esophageal reflux disease without esophagitis Hypoglycemia 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[place]'s syndrome Essential (primary) hypertension CVA (cerebral vascular accident) Hyperlipidemia CKD (chronic kidney disease) Surgical History History of esophagogastroduodenoscopy (EGD) History of tonsillectomy and adenoidectomy History of cholecystectomy History of colonoscopy Family History Other Diabetes Heart disease Social History Smoking and tobacco/nicotine status: never used tobacco/nicotine Second hand smoke exposure: No Alcohol intake: former Substance/Drug Use: never Caregiver/support person: Yes Lives independently: Yes Household members: spouse Marital status: service: No Current occupational status: retired Current gender identity: Male Special thomas needs: No Agree to transfusion: Yes Vitals/I&O/Wt Last Vital Signs Temp 97.5 F L 11/30/23 12:30 Pulse 81 11/30/23 13:00 Resp 19 H 11/30/23 13:21 BP 122/67 11/30/23 13:00 Pulse Ox 92 11/30/23 13:00 O2 Del Method Room Air 11/30/23 00:00 11/30/23 11/30/23 11/30/23 06:59 14:59 22:59 Intake Total 2650 / 6107.373 450 / 450 Output Total 700 / 1075 Balance 1950 / 5032.373 450 / 450 Weight last 48 hrs Weight 215 lb 2 oz Weight 220 lb 6 oz Weight 200 lb Physical Exam Narrative: GENERAL: The patient is alert and oriented times three. Mainly complains about the abnormal discomfort. HEENT: Minimal pallor. No icterus or lymphadenopathy.Oral cavity: There are no mucous membrane lesions. NECK: Trachea appears to be central. No masses noted. No JVD or thyromegaly appreciated. RESPIRATORY: Chest is symmetrical. No intercostals muscle retraction or any accessory muscle activation. There is no chest wall tenderness. Breath sounds are heard bilaterally. No rales or rhonchi heard. No evidence of any consolidation. BREASTS: Deferred. HEART: The heart sounds are normal. No S3 or S4. No significant murmurs. No pericardial rub ABDOMEN: Slightly distended. Bowel sounds are normally heard. Vague tenderness in epigastric area : Deferred. RECTAL: Deferred. LYMPHATIC: No lymphadenopathy noted in the neck. EXTREMITIES: 3+ edema of the lower extremities. Edema of the scrotum and penis MUSCULOSKELETAL: No acute joint deformities or swelling SKIN: There are no significant rashes or ecchymosis NEUROPSYCHIATRIC: The patient is alert and oriented x3. Minimal left-sided motor weakness Urinary Catheter Management: Pollard: Cath Placed During This Visit: yes Reason for Continuing Indwelling Catheter: Accurate Measurement of Urinary Output in Critically Ill Patients Urinary Catheter Date of Insertion: 11/29/23 Urinary Catheter Time of Insertion: 08:55 Data 11/30/23 13:38 11/30/23 13:01 Micro: Microbiology 11/29/23 08:17 Blood Culture - Preliminary Blood NEGATIVE TO DATE 11/29/23 08:17 Blood Culture - Preliminary Blood NEGATIVE TO DATE Other data: EKG from today revealed Normal sinus rhythm with a first-degree AV block. Nonspecific IVCD. Possible recent inferior wall ME. Nonspecific T wave changes in the anterolateral leads Echocardiogram on 11/29/2023 LV systolic function is mildly reduced with EF of 45 to 50%. Basal inferoseptal and anteroseptal peoples of moderate to severe hypokinesis. Mild mitral regurgitation Trace aortic regurgitation Mild tricuspid regurgitation Mild pulmonic regurgitation Ascending aorta is dilated with diameter of 3.98 cm. Compared to prior echocardiogram from 2016, LV systolic function has decreased CT of the abdomen/pelvis 1. Marked distention of the stomach with fluid. There is a change in caliber in the duodenal C-loop. Spasm versus gastric outlet obstruction or obstructing neoplasm within the differential. 2. Severe atrophy of the pancreas with calcifications. Typically seen with chronic pancreatitis. No mass identified. 3. Prior cholecystectomy with pneumobilia. 4. No renal obstruction. Bilateral nonobstructing renal calculi. 5. Mild sigmoid diverticulosis without acute diverticulitis. 6. Mild soft tissue anasarca. 7. Significant atherosclerotic plaque within the arteries of the abdomen and pelvis. A&P Assessment and plan (1) Elevated troponin: Most likely this patient had a recent myocardial infarction. Apparently has no chest pain. Has features of acute diastolic heart failure. No acute EKG change. Apparently the patient had some episodes of bradycardia. So it may be appropriate to hold off on the beta-justus at this time Patient may be continued on the heparin, Plavix and other symptomatic measures. (2) Recent myocardial infarction of inferior wall: The EKG suggested inferior wall ME. Also has some evidence of diastolic heart failure. Hemodynamically he seems to be fairly stable at this time. (3) Acute diastolic heart failure: Recent ME, LV dysfunction, acute renal failure, etc. are contributing factors. Patient may be carefully treated with IV diuretics. He is being evaluated for dialysis. (4) Acute renal failure superimposed on stage 3 chronic kidney disease: Appreciate the nephrology input. Qualifiers: Chronic kidney disease stage 3 subtype: stage 3a (GFR 45-59) Acute renal failure type: unspecified Qualified Code(s): N17.9 - Acute kidney failure, unspecified; N18.31 - Chronic kidney disease, stage 3a (5) Pyelonephritis: The patient is on IV antibiotics (6) Chronic calcific pancreatitis: Has been undergoing treatment in [place]. Details are not available. Plan In view of the patient's acute heart failure and severe oliguria, it may be appropriate to go ahead with the hemodialysis first, before proceeding with any invasive procedures. Discussed with the Dr. Reardon Based on the patient's clinical progress, further recommendations will be made Thank you for the opportunity to evaluate this patient and make these recommendations Consult Attestations Medical Necessity Statement: Patient requires continued hospital stay for close monitoring and further management Coding Level of Care Code 50473 Diagnoses Elevated troponin R79.89 Recent myocardial infarction of inferior wall Acute diastolic heart failure I50.31 Acute renal failure superimposed on stage 3a chronic kidney disease, unspecified acute renal failure type N17.9; N18.31 Chronic kidney disease stage 3 subtype: stage 3a (GFR 45-59) Acute renal failure type: unspecified Pyelonephritis N12 Chronic calcific pancreatitis K86.1
[2023-11-30 17:37] LABS: Glucose Point of Care 335 mg/dL (70-110)
[2023-11-30] MEDS: pantoprazole DR 40 mg Tablet PO (17:57)
--- NOTE | 2023-11-30 18:41 | PM.PN ---
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 now and can't wait until tomorrow when EGD will Vitals/I&O/Wt Last Vital Signs Temp 96.5 F L 11/30/23 18:00 Pulse 77 11/30/23 18:00 Resp 16 11/30/23 18:00 BP 94/69 11/30/23 18:00 Pulse Ox 89 L 11/30/23 18:00 O2 Del Method Nasal Cannula 11/30/23 18:00 O2 Flow Rate 5 11/30/23 18:00 11/30/23 11/30/23 11/30/23 06:59 14:59 22:59 Intake Total 2650 / 6107.373 450 / 450 1203.55 / 1653.55 Output Total 700 / 1075 275 / 275 Balance 1950 / 5032.373 450 / 450 928.55 / 1378.55 Weight last 48 hrs Weight 215 lb 2 oz Weight 220 lb 6 oz Weight 200 lb Physical Exam Urinary Catheter Management: Pollard: Cath Placed During This Visit: yes Reason for Continuing Indwelling Catheter: Accurate Measurement of Urinary Output in Critically Ill Patients Urinary Catheter Date of Insertion: 11/29/23 Urinary Catheter Time of Insertion: 08:55 Data 11/30/23 13:38 11/30/23 13:01 Micro: Microbiology 11/29/23 08:17 Blood Culture - Preliminary Blood NEGATIVE TO DATE 11/29/23 08:17 Blood Culture - Preliminary Blood NEGATIVE TO DATE Coding Level of Care Code Acute Code for Chg Fwd
--- NOTE | 2023-11-30 18:59 | P.ANESASSM_ITS ---
Pre-Anesthetic Assessment Height/Weight: Height 1.83 m Weight 97.579 kg Temp Pulse Resp BP Pulse Ox O2 Del Method O2 Flow Rate 96.5 F L 77 16 94/69 89 L Nasal Cannula 5 11/30/23 18:00 11/30/23 18:00 11/30/23 18:00 11/30/23 18:00 11/30/23 18:00 11/30/23 18:00 11/30/23 18:00 Preop Diagnosis: acute renal failure and gastric outlet obstruction Operation Date: 11/30/23 18:30 Proposed Procedures p Dialysis Catheter Insertion(Not Applicable) - Gregory Patel MD Familial anesthetic complications: Difficult intubation Last intake: > 8 hrs, but gastric outlet obstruction w/ NG tube Exam alert, oriented x 3, clear to auscultation bilaterally and regular rate & rhythm bigeminy CV/HEM Arrythmia and Myocardial Infarction heparin paused for 2+ hours, Downtrending troponins, echo in chart Metabolic Diabetes Mellitus metabolic acidosis Anesthetic Plan ASA status: 4E Anesthesia: Local Only Other: Due to patient's current need for dialysis and clinical status, would strongly suggest delaying EGD until after patient has stabilized and had successful Dialysis. Due to gastric outlet obstruction and temporary catheter, will use local only. Risk of > 500 ml blood loss (7ml/kg in children): No Medications/Allergies Home Medications Medication Instructions Recorded Confirmed Last Taken Type blood sugar diagnostic (FreeStyle #100 ea 08/25/20 11/29/23 Unknown Rx Lite Strips) lancets 28 gauge (FreeStyle #200 ea 05/15/22 11/29/23 Unknown Rx Lancets) pen needle, diabetic 32 gauge x #100 ea 06/02/22 11/29/23 Unknown Rx 1/4 (Comfort EZ Pen [place]) blood sugar diagnostic (Blood #100 ea 09/26/22 11/29/23 Unknown Rx Glucose Test strips) insulin syringe-needle U-100 0.5 #200 ea 09/26/22 11/29/23 Unknown Rx mL 31 gauge x 5/16 (BD Insulin Syringe Ultra-Fine) insulin regular human 100 unit/mL See Rx Instructions .Route 05/04/23 11/29/23 11/28/23 Rx injection solution (Novolin R .COMPLEX #10 mL Regular U-100 Insulin) amitriptyline 10 mg tablet 20 mg (2 x 10 mg) PO DAILY #90 tabs 05/30/23 11/29/23 11/28/23 Rx amlodipine 10 mg tablet 10 mg PO DAILY #90 tabs 07/25/23 11/29/23 11/28/23 Rx clopidogrel 75 mg tablet (Plavix) 75 mg PO DAILY #90 tabs 07/25/23 11/29/23 11/28/23 Rx lisinopril 40 mg tablet 40 mg PO DAILY #90 tabs 07/25/23 11/29/23 11/28/23 Rx simvastatin 40 mg tablet 40 mg PO DAILY #90 tabs 07/25/23 11/29/23 11/28/23 Rx furosemide 40 mg tablet 40 mg PO DAILY #90 tabs 10/03/23 11/29/23 11/28/23 Rx insulin NPH isoph U-100 human 100 See Rx Instructions .Route 10/22/23 11/29/23 11/28/23 Rx unit/mL subcutaneous suspension .COMPLEX #10 mL (Novolin N NPH U-100 Insulin isophane) metoprolol tartrate 100 mg tablet 100 mg PO BID #60 tabs 10/29/23 11/29/23 11/28/23 Rx acetaminophen 325 mg tablet 650 mg PO QID PRN Pain 11/29/23 11/29/23 11/28/23 History calcitriol 0.25 mcg capsule See Rx Instructions .Route .COMPLEX 11/29/23 11/29/23 11/28/23 History empagliflozin 25 mg tablet 25 mg PO DAILY 11/29/23 11/29/23 11/28/23 History (Jardiance) ogdzxmfr-nhpuepqb-ypkti acid 400 1 tab PO DAILY 11/29/23 11/29/23 11/28/23 History mcg-vit K 20 mcg-lycop 300 mcg tablet (Men's One Daily) pantoprazole 40 mg tablet,delayed 40 mg PO BID 11/29/23 11/29/23 11/28/23 History release tramadol 50 mg tablet 100 mg PO Q8H PRN Pain 11/29/23 11/29/23 11/28/23 History Allergies Allergy/AdvReac Type Severity Reaction Status Date / Time metformin Allergy VOMITING Verified 11/29/23 07:45 pregabalin [From Lyrica] Allergy ADR-Fatigue Verified 03/14/24 08:16 d dulaglutide [From Trulicity] AdvReac Intermediate ADR-Vomitin Verified 11/29/23 07:45 g Current Medications Generic Name Dose Route Start Last Admin Trade Name Nkechi PRMariaelena Reason Stop Dose Admin Amitriptyline HCl 25 mg 11/30/23 09:00 11/30/23 07:58 Amitriptyline 25 Mg Tablet PO Not Given DAILY MIO Aspirin 81 mg 11/30/23 12:30 11/30/23 12:48 Aspirin 81 Mg Ec Tablet PO 81 mg DAILY MIO Administration Atorvastatin Calcium 40 mg 11/30/23 09:00 11/30/23 07:58 Atorvastatin 40 Mg Tablet PO Not Given DAILY MIO Clopidogrel Bisulfate 75 mg 11/30/23 09:00 11/30/23 07:58 Clopidogrel 75 Mg Tablet PO Not Given DAILY MIO Meropenem 500 mg/ Sodium 50 mls @ 100 mls/hr 11/29/23 20:00 11/30/23 08:14 Chloride IV Infused Q12H MIO Infusion Protocol Linezolid 600 mg in 300 mls @ 300 mls/hr 11/29/23 12:52 11/30/23 13:48 Zyvox Premix IV Infused Q12H MIO Infusion Protocol Albumin Human 25 g in 100 mls @ 60 mls/hr 11/29/23 21:00 11/30/23 14:28 Albumin IV Infused Q8H MIO Infusion Sodium Bicarbonate 150 meq/ 1,150 mls @ 125 mls/hr 11/30/23 06:30 11/30/23 17:56 Dextrose IV 125 mls/hr .Q9H12M MIO Administration Heparin Sodium/Sodium Chloride 25,000 unit in 500 mls @ 0 mls/hr 11/30/23 12:30 11/30/23 17:00 Heparin Drip IV 0 unit/kg/hr .Q0M MIO 0 mls/hr Titration Protocol Per Protocol Dopamine HCl/Dextrose 400 mg in 250 mls @ 18.296 mls/hr 11/30/23 15:00 11/30/23 15:31 Intropin Drip IV 5 mcg/kg/min CONT MIO 18.3 mls/hr Administration Protocol 5 MCG/KG/MIN Insulin Human Lispro 0 unit 11/29/23 12:52 11/30/23 17:56 Insulin Lispro 100 Unit/1 Ml SUBCUT 12 unit WM&BEDTIME MIO Administration Protocol Morphine Sulfate 1 mg 11/29/23 12:52 11/30/23 13:21 Morphine 4 Mg/Ml Sdv 1 Ml IVP 1 mg Q4H PRN Administration SEVERE PAIN Ondansetron HCl 4 mg 11/29/23 12:52 11/30/23 15:05 Ondansetron 2 Mg/Ml Sdv 2 Ml IVP 4 mg Q6H PRN Administration NAUSEA AND VOMITING Pantoprazole Sodium 40 mg 11/29/23 18:00 11/30/23 17:[address] 40 Mg Tablet PO 40 mg BID MIO Administration [facility] Anesthesia Medical History (Updated 11/30/23 @ 17:19 by Shira Aguirre MD) 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 Essential (primary) hypertension Gastro-esophageal reflux disease without esophagitis Hypoglycemia 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 Essential (primary) hypertension CVA (cerebral vascular accident) Hyperlipidemia CKD (chronic kidney disease) Surgical History History of esophagogastroduodenoscopy (EGD) History of tonsillectomy and adenoidectomy History of cholecystectomy History of colonoscopy Family History Other Diabetes Heart disease Social History Smoking and tobacco/nicotine status: never used tobacco/nicotine Second hand smoke exposure: No Alcohol intake: former Substance/Drug Use: never Caregiver/support person: Yes Lives independently: Yes Household members: spouse Marital status: service: No Current occupational status: retired Current gender identity: Male Special thomas needs: No Agree to transfusion: Yes Data Anesthesia 11/30/23 13:38 11/30/23 13:01 Short CBC 11/29/23 11/29/23 11/30/23 Range/Units 08:17 20:03 04:25 WBC 22.35 H 20.57 H 18.90 H (3.29-11.43) 10^3/uL Hgb 12.10 10.90 L 10.80 L (11.27-16.99) g/dL Hct 37.6 33.3 L 33.9 L (37-53) % MCV 92.2 91.2 92.9 (82-101) fl Plt Count 214 189 188 (157-399) 10^3/cmm Neut % (Auto) 92.3 90.8 85.6 % Neut # (Auto) 20.64 H 18.68 H 16.19 H (1.8-7.7) 10^3/uL 11/30/23 Range/Units 13:38 WBC 20.76 H (3.29-11.43) 10^3/uL Hgb 10.00 L (11.27-16.99) g/dL Hct 30.5 L (37-53) % MCV 89.7 (82-101) fl Plt Count 155 L (157-399) 10^3/cmm Neut % (Auto) 91.5 % Neut # (Auto) 19.00 H (1.8-7.7) 10^3/uL BMP 11/29/23 11/29/23 11/29/23 08:17 11:36 20:03 Sodium 130 L 130 L 130 L Potassium 5.8 H 5.0 5.2 H Chloride 93 L 95 L 97 L Carbon Dioxide 14 L 13 L 13 L BUN 63 H 60 H 69 H Creatinine 7.3 H* 6.6 H* 7.1 H* Glucose 166 H 168 H 167 H Calcium 7.4 L 7.4 L 7.3 L 11/30/23 11/30/23 04:25 13:01 Sodium 129 L 128 L Potassium 4.9 4.6 Chloride 92 L 90 L Carbon Dioxide 14 L 15 L BUN 68 H 67 H Creatinine 6.9 H* 6.6 H* Glucose 246 H 273 H Calcium 7.3 L 7.2 L Cardiac Enzymes 11/29/23 11/29/23 11/29/23 Range/Units 08:17 10:14 14:14 Creatine Kinase 73 (39-308) U/L Troponin T Baseline 390 H* (0-15) ng/L Troponin T 120 Minute 333.4 H (0-15) ng/L Delta Troponin T -56.6 L (0-10) ABS# Troponin T Hi Sens 6Hr 332.6 H (0-15) ng/L Troponin T Hi Sens 6Hr Delta -57.4 L (0-12) ng/L NT-Pro-B Natriuret Pep 33105 H (0-125) pg/mL 11/30/23 11/30/23 11/30/23 Range/Units 04:25 13:01 14:47 Creatine Kinase (39-308) U/L Troponin T Baseline 336 H* (0-15) ng/L Troponin T 120 Minute 331.8 H (0-15) ng/L Delta Troponin T -4.2 L (0-10) ABS# Troponin T Hi Sens 6Hr (0-15) ng/L Troponin T Hi Sens 6Hr Delta (0-12) ng/L NT-Pro-B Natriuret Pep 87533 H 63661 H (0-125) pg/mL Liver Function 11/29/23 11/29/23 11/30/23 Range/Units 08:17 20:03 04:25 Total Bilirubin 1.0 0.7 0.9 (0.15-1.2) mg/dL AST 34 29 29 (0-40) U/L ALT 31 28 25 (0-41) U/L Alkaline Phosphatase 543 H 527 H 543 H (40-130) U/L Albumin 2.4 L 2.0 L 2.1 L (3.5-5.2) g/dL 11/30/23 Range/Units 13:01 Total Bilirubin 0.9 (0.15-1.2) mg/dL AST 26 (0-40) U/L ALT 23 (0-41) U/L Alkaline Phosphatase 495 H (40-130) U/L Albumin 2.3 L (3.5-5.2) g/dL Urine 11/29/23 Range/Units 08:47 Urine Color Straw (Yellow) Urine Appearance Cloudy A (CLEAR) Urine pH 6.5 (5-7) Ur Specific [place] 1.010 (1.005-1.030) Urine Protein 1+ H (Negative) Urine Glucose (UA) 2+ H (Normal) Urine Ketones Negative (Negative) Urine Nitrate Negative (Negative) Urine Bilirubin Neg (Negative) Ur Leukocyte Esterase 2+ H (Negative) Urine RBC 5-10 H (0-2) /hpf Urine WBC Too numerous to cnt H (0-5) /hpf Coags 11/29/23 11/30/23 11:36 04:25 PT 20.80 H INR 1.72 H C-Reactive Protein 205.7 H ABG 11/30/23 13:35 Specimen Type Arterial Sample Site Brachial, right ABG pH 7.30 L ABG pCO2 33.6 L ABG pO2 69.7 L ABG PO2/FiO2 Ratio 0 ABG HCO3 16.5 L ABG Base Excess -9.0 L O2 Delivery Device Room air FiO2 21.0 Microbiology 11/29/23 08:17 Blood Culture - Preliminary Blood NEGATIVE TO DATE 11/29/23 08:17 Blood Culture - Preliminary Blood NEGATIVE TO DATE Cardiac Studies: 2 Echocardiogram 11/29/23
--- NOTE | 2023-11-30 19:28 | XRR_ITS ---
PROCEDURE INFORMATION: Exam: XR Chest Exam date and time: 11/30/2023 6:47 PM Age: 73 years old Clinical indication: Other vascular access device placement or adjustment; Central line, non-tunnelled; Patient HX: Trialysis cath confirmation TECHNIQUE: Imaging protocol: Radiologic exam of the chest. Views: 1 view. COMPARISON: CR XR chest 1V portable [id number] 11/30/2023 1:42 PM FINDINGS: Lungs: No focal consolidation. Left basilar subsegmental atelectasis. Pleural spaces: No evidence of pneumothorax. No evidence of pleural effusion. Heart/Mediastinum: Interval placement of a right-sided central venous/dialysis catheter in place with tip in the region of the distal SVC. A left-sided PICC line is again visualized with tip in the region of the right atrium. Enteric tube in place with tip outside the field of view. Cardiomediastinal silhouette is otherwise within normal limits. Bones/joints: No evidence of acute osseous abnormality. XR/XR chest 1V portable [id number] IMPRESSION: 1. Interval placement of a right-sided central venous/dialysis catheter in place with tip in the region of the distal SVC.
[2023-11-30 19:30] LABS: Troponin 5 6HR Delta 3.4 ng/L (0-12)
[2023-11-30 19:34] LABS: Troponin 5 6HR 339.4 ng/L (0-15)
[2023-11-30] MEDS: meropenem 500 MG in sodium chloride 0.9% (plus) 50 ML 10 MG IV (20:58)
[2023-11-30 21:41] LABS: Glucose Point of Care 296 mg/dL (70-110)
--- NOTE | 2023-11-30 22:01 | PM.OP ---
Operative Report Date of procedure: November 30, 2023 Pre-op diagnosis: acute renal failure Post-op diagnosis: same Procedure done: Right internal jugular [place] type temporary dialysis catheter Implants: temporary dialysis catheter Surgeon: Gregory Patel MD Anesthesia: Local Estimated blood loss: 10cc Complications: none Condition: stable Brief History: Patient with UTI and acute renal failure in need of acute dialysis Procedure: After prepping and draping right internal jugular area, and with patient in trendelenberg position, 1% lidocaine was instilled over right IJ at base of neck. With use of US the right IJ was cannulated with large bore needle and guidewire was inserted. Via Seldinger technique a large bore temporary dialysis catheter was inserted after dilated vein. Good blood return was noted from both lumens of catheter and saline flushed. The catheter was secured to skin with interrupted 3-0 silk and site was aseptically dressed. CXR shows tip in SVC and no gross PTX seen by my reading.
[2023-11-30 22:57] LABS: Hepatitis B Surface AB < 3.5 (11.5-1000); Hepatitis B Surface Antigen Non-Reactive (Nonreactive)
[2023-11-30] MEDS: heparin, porcine 1,000 unit/mL INJ 10 mL 10000 UNIT INTRACATH (23:13)
[2023-11-30] MEDS: heparin, porcine 1,000 unit/mL INJ 10 mL 1000 UNIT IV (23:13)
[2023-12-01] VITALS (41 sets, daily range): BP systolic 84–153; BP diastolic 55–92; PULSE 49–105; RESP 12–17; TEMP 35.8–36.8; O2SAT 90–99; BMI 29.7
[2023-12-01] MEDS: linezolid premix 600 MG/300 ML PREMIX 300 MG IV ×2 (01:36→15:11)
[2023-12-01] MEDS: morphine 4 mg/mL SDV 1 mL 1 MG IVP ×2 (01:56→06:10)
[2023-12-01] MEDS: sodium bicarbonate 150 MEQ in dextrose 5% 1,000 ML 125 MEQ IV (02:31)
[2023-12-01] MEDS: albumin 25 G/100 ML BAG 60 G IV ×3 (04:11→21:06)
[2023-12-01 05:42] LABS: Basophils % 0.2 %; Eosinophils # 0.1 10^3/uL (0.0-0.8); Eosinophils % 0.3 %; Hematocrit 29.1 % (37-53); Lymphocytes # 1.1 10^3/uL (0.8-4.8); Lymphocytes % 6.1 %; Mean Corpuscular HGB Conc 32.3 g/dL (30-55); Mean Corpuscular Hemoglobin 29.2 pg (27-33); Mean Corpuscular Volume 90.4 fl (82-101); Mean Platelet Volume 11.5 fL (7.4-10.4); Monocytes # 0.4 10^3/uL (0.2-0.9); Monocytes % 2.4 %; Neutrophils # 16.43 10^3/uL (1.8-7.7); Neutrophils % 90.1 %; Nucleated Red Blood Cells % 0 %; Platelet Count 145 10^3/cmm (157-399); Red Blood Count 3.22 10^6/uL (3.85-5.65); Red Cell Distribution Width 13.9 % (12.1-15.1); White Blood Count 18.23 10^3/uL (3.29-11.43)
[2023-12-01 05:50] LABS: INR 2.09 (0.8-1.2)
[2023-12-01 05:57] LABS: C Reactive Protein 226.1 mg/L (0.0-4.9); Creatine Phosphokinase 38 U/L (39-308); Lactate (Lactic Acid level) 1.8 mmol/L (0.5-2.2)
[2023-12-01 06:06] LABS: Alanine Aminotransferase 23 U/L (0-41); Albumin Level 4.3 g/dL (3.5-5.2); Alkaline Phosphatase 586 U/L (40-130); Blood Urea Nitrogen 45 mg/dL (8-23); Calcium 7.6 mg/dL (8.5-10.5); Carbon Dioxide 21 mmol/L (22-29); Chloride 90 mmol/L (98-107); Globulin 2.7 g/dL (1.3-4.6); Glucose 256 mg/dL (65-115); Magnesium 1.3 mg/dL (1.7-2.3); Osmolality Calculated 294 mOsm/kg (285-295); Phosphorus 7.4 mg/dL (2.5-4.5); Sodium 132 mmol/L (136-145); Total Bilirubin 0.9 mg/dL (0.15-1.2)
[2023-12-01 06:07] LABS: Anion Gap 25.7 (5-19); Aspartate Amino Transferase 39 U/L (0-40); Creatinine Clr Calc Pharmacy 18.4101; Potassium 4.7 mmol/L (3.5-5.1)
[2023-12-01 06:08] LABS: NT Pro B Type Natriuretic Pept 21972 pg/mL (0-125); Procalcitonin 0.91 ng/mL (0-0.5)
[2023-12-01] MEDS: meropenem 500 MG in sodium chloride 0.9% (plus) 50 ML 100 MG IV ×2 (08:02→19:58)
[2023-12-01] MEDS: insulin lispro 100 unit/1 mL SUBCUT ×4 (08:09→21:05)
[2023-12-01 08:18] LABS: Glucose Point of Care 323 mg/dL (70-110)
[2023-12-01] MEDS: magnesium sulfate premix 2 GM/50 ML PIGGYBACK IV (09:24)
[2023-12-01] MEDS: insulin glargine 100 units/1 mL 10 UNIT SUBCUT (09:25)
[2023-12-01] MEDS: amitriptyline 25 mg Tablet PO (09:26)
[2023-12-01] MEDS: aspirin 81 mg EC Tablet PO (09:26)
[2023-12-01] MEDS: atorvastatin 40 mg Tablet PO (09:26)
[2023-12-01] MEDS: pantoprazole DR 40 mg Tablet PO ×2 (09:26→19:48)
[2023-12-01] MEDS: clopidogrel 75 mg Tablet PO (09:26)
--- NOTE | 2023-12-01 09:38 | P.PN_ITS ---
Subjective 2 Subjective: s/p HD last night Medications: Reviewed: Yes Vitals/I&O/Wt Last Vital Signs Temp 98.1 F 12/01/23 02:16 Pulse 50 L 12/01/23 09:25 Resp 17 12/01/23 04:30 BP 119/69 12/01/23 04:30 Pulse Ox 95 12/01/23 09:25 O2 Del Method Nasal Cannula 12/01/23 09:25 O2 Flow Rate 3 12/01/23 09:25 11/30/23 12/01/23 12/01/23 22:59 06:59 14:59 Intake Total 1324.025 / 0382.384 5908.501 / 4218.526 50 / 50 Output Total 275 / 275 3469 / 3744 Balance 1049.025 / 1499.025 -1024.499 / 474.526 50 / 50 Weight last 48 hrs Weight 99.5 kg Weight 98 kg Weight 97.579 kg Weight 99.96 kg Physical Exam 2 Narrative: AWAKE , ALERT +NGT S1 S2 RRR per report lUNGS CLEAR PER REPORT + EDEMA Urinary Catheter Management: Poll[place]: Cath Placed During This Visit: yes Reason for Continuing Indwelling Catheter: Accurate Measurement of Urinary Output in Critically Ill Patients Urinary Catheter Date of Insertion: 11/29/23 Urinary Catheter Time of Insertion: 08:55 Data 12/01/23 05:00 12/01/23 05:00 Micro: Microbiology 11/29/23 08:17 Blood Culture - Preliminary Blood NEGATIVE TO DATE 11/29/23 08:17 Blood Culture - Preliminary Blood NEGATIVE TO DATE A&P Assessment and plan (1) Acute renal failure superimposed on stage 3 chronic kidney disease: Qualifiers: Acute renal failure type: unspecified Chronic kidney disease stage 3 subtype: stage 3a (GFR 45-59) Qualified Code(s): N17.9 - Acute kidney failure, unspecified; N18.31 - Chronic kidney disease, stage 3a Plan 1. Acute on chronic kidney disease stage III: Baseline creatinine is in the 2 range patient now presented with JIA with a creatinine of 7.3 associated with metabolic acidosis and hyperkalemia and volume overload. His current JIA most likely ATN in the setting of acute infection/UTI, and possible prerenal. -s/p t temporary HD catheter placement and hD done last night, assess daily for HD needs -Avoid nephrotoxins and IV contrast studies. 2. Metabolic acidosis: s/p bicarbonate drip, s/p HD monitor 3. Pyelonephritis, on antibiotics 4. Question gastric outlet obstruction on CT, patient has NGT and general surgery following , 5. Elevated BNP, echo pending Patient evaluated using audiovisual cart. Time spent 20 minutes. Attestations 2 Medical Necessity Statement*: PER MEDICINE Coding Level of Care Code Acute Code for Chg Fwd Diagnoses Acute renal failure superimposed on stage 3a chronic kidney disease, unspecified acute renal failure type N17.9; N18.31 Acute renal failure type: unspecified Chronic kidney disease stage 3 subtype: stage 3a (GFR 45-59)
--- NOTE | 2023-12-01 10:45 | PM.PN ---
Subjective Subjective: Patient had the dialysis last night. He had a total of 500 cc of urine output through the night. Denies any chest pain or shortness of breath. Appears to be very drowsy this morning. No fever or chills. He remains afebrile. He is somewhat hypotensive this morning. Has been on as needed dopamine Medications: Medication Review Details: Current Medications Acetaminophen (Acetaminophen 325 Mg Tablet) 650 mg PO QID PRN PRN Reason: Pain Amitriptyline HCl (Amitriptyline 25 Mg Tablet) 25 mg PO DAILY PENDING SALE TO [facility] Last Admin: 12/01/23 09:26 Dose: 25 mg Aspirin (Aspirin 81 Mg Ec Tablet) 81 mg PO DAILY PENDING SALE TO [facility] Last Admin: 12/01/23 09:26 Dose: 81 mg Atorvastatin Calcium (Atorvastatin 40 Mg Tablet) 40 mg PO DAILY PENDING SALE TO [facility] Last Admin: 12/01/23 09:26 Dose: 40 mg Atropine Sulfate (Atropine 0.1 Mg/Ml Syr 10 Ml) 0.5 mg IVP Q5MIN PRN PRN Reason: for hr<60, and hypotension, call MD before use Clopidogrel Bisulfate (Clopidogrel 75 Mg Tablet) 75 mg PO DAILY PENDING SALE TO [facility] Last Admin: 12/01/23 09:26 Dose: 75 mg Heparin Sodium (Porcine) (Heparin 5,000 Unit/Ml Inj 1 Ml) 0 unit IV PRN PRN; Protocol PRN Reason: Heparin weight-base protocol Meropenem 500 mg/ Sodium (Chloride) 50 mls @ 100 mls/hr IV Q12H PENDING SALE TO [facility]; Protocol Last Infusion: 12/01/23 08:32 Dose: Infused Linezolid (Zyvox Premix) 600 mg in 300 mls @ 300 mls/hr IV Q12H PENDING SALE TO [facility]; Protocol Last Infusion: 12/01/23 02:35 Dose: Infused Dextrose (D5w) 500 mls @ 0 mls/hr IV ONCE PRN; Protocol PRN Reason: Adult Acute Hypoglycemia Prot Dextrose (D10w) 125 mls @ 750 mls/hr IV PRN PRN; Protocol PRN Reason: Adult Acute Hypoglycemia Nursing Protocol Dextrose (D10w) 250 mls @ 1,000 mls/hr IV PRN PRN; Protocol PRN Reason: Adult Acute Hypoglycemia Nursing Protocol Albumin Human (Albumin) 25 g in 100 mls @ 60 mls/hr IV Q8H PENDING SALE TO [facility] Last Infusion: 12/01/23 05:40 Dose: Infused Heparin Sodium/Sodium Chloride (Heparin Drip) 25,000 unit in 500 mls @ 0 mls/hr IV .Q0M PENDING SALE TO [facility]; Protocol Last Titration: 12/01/23 10:32 Dose: 13.83 unit/kg/hr, 27 mls/hr Dopamine HCl/Dextrose (Intropin Drip) 400 mg in 250 mls @ 18.296 mls/hr IV CONT PENDING SALE TO [facility]; Protocol Last Titration: 12/01/23 03:45 Dose: 0 mcg/kg/min, 0 mls/hr Sodium Chloride (Sodium Chloride 0.9%) 1,000 mls @ 0 mls/hr IV .Q0M PRN PRN Reason: hypotension or symptomatic Albumin Human (Albumin) 12.5 gm in 50 mls @ 60 mls/hr IV PRN PRN PRN Reason: Hypotension and/or symptomatic Insulin Human Lispro (Insulin Lispro 100 Unit/1 Ml) 0 unit SUBCUT WM&BEDTIME PENDING SALE TO [facility]; Protocol Last Admin: 12/01/23 08:09 Dose: 12 unit Metoclopramide HCl (Metoclopramide 5 Mg/Ml Sdv 2 Ml) 5 mg IVP Q6H PRN PRN Reason: NAUSEA AND VOMITING Morphine Sulfate (Morphine 4 Mg/Ml Sdv 1 Ml) 1 mg IVP Q4H PRN PRN Reason: SEVERE PAIN Last Admin: 12/01/23 06:10 Dose: 1 mg Naloxone HCl (Naloxone 0.4 Mg/Ml Sdv) 0.1 mg IVP Q2M PRN PRN Reason: OPIATERV Ondansetron HCl (Ondansetron 2 Mg/Ml Sdv 2 Ml) 4 mg IVP Q6H PRN PRN Reason: NAUSEA AND VOMITING Last Admin: 11/30/23 15:05 Dose: 4 mg Pantoprazole Sodium (Pantoprazole Dr 40 Mg Tablet) 40 mg PO BID PENDING SALE TO [facility] Last Admin: 12/01/23 09:26 Dose: 40 mg Vitals/I&O/Wt Last Vital Signs Temp 98.1 F 12/01/23 02:16 Pulse 50 L 12/01/23 09:25 Resp 17 12/01/23 04:30 BP 119/69 12/01/23 04:30 Pulse Ox 95 12/01/23 09:25 O2 Del Method Nasal Cannula 12/01/23 09:25 O2 Flow Rate 3 12/01/23 09:25 11/30/23 12/01/23 12/01/23 22:59 06:59 14:59 Intake Total 1324.025 / 4582.654 2358.501 / 4218.526 50 / 50 Output Total 275 / 275 3469 / 3744 Balance 1049.025 / 1499.025 -1024.499 / 474.526 50 / 50 Weight last 48 hrs Weight 219 lb 5.759 oz Weight 216 lb 0.848 oz Weight 215 lb 2 oz Weight 220 lb 6 oz Physical Exam Narrative: GENERAL: The patient is drowsy but responds to questions appropriately HEENT: Minimal pallor. No icterus or lymphadenopathy.Oral cavity: There are no mucous membrane lesions. NECK: Trachea appears to be central. No masses noted. No JVD or thyromegaly appreciated. RESPIRATORY: Chest is symmetrical. No intercostals muscle retraction or any accessory muscle activation. There is no chest wall tenderness. Breath sounds are heard bilaterally. No rales or rhonchi heard. No evidence of any consolidation. BREASTS: Deferred. HEART: The heart sounds are normal. No S3 or S4. No significant murmurs. No pericardial rub ABDOMEN: Slightly distended. Bowel sounds are normally heard. Vague tenderness in epigastric area : Deferred. RECTAL: Deferred. LYMPHATIC: No lymphadenopathy noted in the neck. EXTREMITIES: 2-3+ edema of the lower extremities. Edema of the scrotum and penis is improving MUSCULOSKELETAL: No acute joint deformities or swelling SKIN: There are no significant rashes or ecchymosis NEUROPSYCHIATRIC: The patient is drowsy. No new neurological deficit Urinary Catheter Management: Pollard: Cath Placed During This Visit: yes Reason for Continuing Indwelling Catheter: Accurate Measurement of Urinary Output in Critically Ill Patients Urinary Catheter Date of Insertion: 11/29/23 Urinary Catheter Time of Insertion: 08:55 Data 12/01/23 05:00 12/01/23 05:00 Other Labs: Laboratory Last Values WBC 18.23 10^3/uL (3.29-11.43) H 12/01/23 05:00 RBC 3.22 10^6/uL (3.85-5.65) L 12/01/23 05:00 Hgb 9.40 g/dL (11.27-16.99) L 12/01/23 05:00 Hct 29.1 % (37-53) L 12/01/23 05:00 MCV 90.4 fl (82-101) 12/01/23 05:00 MCH 29.2 pg (27-33) 12/01/23 05:00 MCHC 32.3 g/dL (30-55) 12/01/23 05:00 RDW 13.9 % (12.1-15.1) 12/01/23 05:00 Plt Count 145 10^3/cmm (157-399) L 12/01/23 05:00 MPV 11.5 fL (7.4-10.4) H 12/01/23 05:00 Neut % (Auto) 90.1 % 12/01/23 05:00 Lymph % (Auto) 6.1 % 12/01/23 05:00 Hart % (Auto) 2.4 % 12/01/23 05:00 Eos % (Auto) 0.3 % 12/01/23 05:00 Baso % (Auto) 0.2 % 12/01/23 05:00 Neut # (Auto) 16.43 10^3/uL (1.8-7.7) H 12/01/23 05:00 Lymph # (Auto) 1.1 10^3/uL (0.8-4.8) 12/01/23 05:00 Hart # (Auto) 0.4 10^3/uL (0.2-0.9) 12/01/23 05:00 Eos # (Auto) 0.1 10^3/uL (0.0-0.8) 12/01/23 05:00 Baso # (Auto) 0.0 10^3/uL (0.0-0.1) 12/01/23 05:00 Nucleated RBC % (auto) 0 % 12/01/23 05:00 Nucleated RBCs # 0.0 /100WBC 12/01/23 05:00 PT 24.20 SECONDS (12.1-14.9) H 12/01/23 05:00 INR 2.09 (0.8-1.2) H 12/01/23 05:00 Specimen Type Arterial 11/30/23 13:35 Sample Site Brachial, right 11/30/23 13:35 ABG pH 7.30 (7.35-7.45) L 11/30/23 13:35 ABG pCO2 33.6 mmHg (35-45) L 11/30/23 13:35 ABG pO2 69.7 mmHg (80.0-100.0) L 11/30/23 13:35 ABG PO2/FiO2 Ratio 0 11/30/23 13:35 ABG HCO3 16.5 mmol/L (22-26) L 11/30/23 13:35 ABG Base Excess -9.0 mmol/L (-2.0-2.0) L 11/30/23 13:35 Jose Carlos Test Pos 11/30/23 13:35 Hematocrit 32.5 % (42-52) L 11/30/23 13:35 O2 Delivery Device Room air 11/30/23 13:35 FiO2 21.0 % 11/30/23 13:35 [employer] In[employer] ID Monro 11/30/23 13:35 Sodium 132 mmol/L (136-145) L 12/01/23 05:00 Potassium 4.7 mmol/L (3.5-5.1) 12/01/23 05:00 Chloride 90 mmol/L (98-107) L 12/01/23 05:00 Carbon Dioxide 21 mmol/L (22-29) L 12/01/23 05:00 Anion Gap 25.7 (5-19) H 12/01/23 05:00 BUN 45 mg/dL (8-23) H 12/01/23 05:00 Creatinine 4.3 mg/dL (0.7-1.2) H 12/01/23 05:00 GFR Calculation Not Reportable 12/01/23 05:00 Glucose 256 mg/dL (65-115) H 12/01/23 05:00 POC Glucose 323 mg/dL (70-110) H 12/01/23 08:02 Estimat Average Glucose 163 11/29/23 08:17 Hemoglobin A1c 7.3 % (4.0-6.0) H 11/29/23 08:17 Calculated Osmolality 294 mOsm/kg (285-295) 12/01/23 05:00 Lactic Acid 1.6 mmol/L (0.5-2.2) 11/29/23 08:17 Lactate 1.8 mmol/L (0.5-2.2) 12/01/23 05:00 Calcium 7.6 mg/dL (8.5-10.5) L 12/01/23 05:00 Phosphorus 7.4 mg/dL (2.5-4.5) H 12/01/23 05:00 Magnesium 1.3 mg/dL (1.7-2.3) L 12/01/23 05:00 Total Bilirubin 0.9 mg/dL (0.15-1.2) 12/01/23 05:00 AST 39 U/L (0-40) 12/01/23 05:00 ALT 23 U/L (0-41) 12/01/23 05:00 Alkaline Phosphatase 586 U/L (40-130) H 12/01/23 05:00 Creatine Kinase 38 U/L (39-308) L 12/01/23 05:00 Troponin T Baseline 336 ng/L (0-15) H* 11/30/23 13:01 Troponin T 120 Minute 331.8 ng/L (0-15) H 11/30/23 14:47 Delta Troponin T -4.2 ABS# (0-10) L 11/30/23 14:47 Troponin T Hi Sens 6Hr 339.4 ng/L (0-15) H 11/30/23 18:45 Troponin T Hi Sens 6Hr Delta 3.4 ng/L (0-12) 11/30/23 18:45 C-Reactive Protein 226.1 mg/L (0.0-4.9) H 12/01/23 05:00 NT-Pro-B Natriuret Pep 07806 pg/mL (0-125) H 12/01/23 05:00 Total Protein 7.0 g/dL (6.6-8.7) D 12/01/23 05:00 Albumin 4.3 g/dL (3.5-5.2) 12/01/23 05:00 Globulin 2.7 g/dL (1.3-4.6) 12/01/23 05:00 Triglycerides 207 mg/dL (0-150) H 11/29/23 08:17 Cholesterol 63 mg/dL (0-200) 11/29/23 08:17 LDL Cholesterol, Calc 9 mg/dL (50-129) L 11/29/23 08:17 HDL Cholesterol 13 mg/dL (60-100) L 11/29/23 08:17 LDL/HDL Ratio 0.69 RATIO (0.00-3.22) 11/29/23 08:17 Cholesterol/HDL Ratio 4.85 mg/dL (1.0-5.00) 11/29/23 08:17 Procalcitonin 0.91 ng/mL (0-0.5) H 12/01/23 05:00 TSH 1.89 uIU/mL (0.27-4.20) 11/29/23 08:17 Urine Color Straw (Yellow) 11/29/23 08:47 Urine Appearance Cloudy (CLEAR) A 11/29/23 08:47 Urine pH 6.5 (5-7) 11/29/23 08:47 Ur Specific [place] 1.010 (1.005-1.030) 11/29/23 08:47 Urine Protein 1+ (Negative) H 11/29/23 08:47 Urine Glucose (UA) 2+ (Normal) H 11/29/23 08:47 Urine Ketones Negative (Negative) 11/29/23 08:47 Urine Blood 3+ (Negative) H 11/29/23 08:47 Urine Nitrate Negative (Negative) 11/29/23 08:47 Urine Bilirubin Neg (Negative) 11/29/23 08:47 Urine Urobilinogen Neg mg/dL (Negative) 11/29/23 08:47 Ur Leukocyte Esterase 2+ (Negative) H 11/29/23 08:47 Urine RBC 5-10 /hpf (0-2) H 11/29/23 08:47 Urine WBC Too numerous to cnt /hpf (0-5) H 11/29/23 08:47 Ur Squamous Epith Cells 0-4 /hpf (0-5) H 11/29/23 08:47 Amorphous Sediment Not Reportable 11/29/23 08:47 Urine Bacteria 3+ /hpf (NONE) H 11/29/23 08:47 Hep Bs Antigen Non-reactive (Nonreactive) 11/30/23 14:47 Hep Bs Antibody < 3.5 (11.5-1000) L 11/30/23 14:47 Micro: Microbiology 11/29/23 08:47 Urine Culture - Preliminary Urine,Clean Catch Strep species, gamma-hemolytic 11/29/23 08:17 Blood Culture - Preliminary Blood NEGATIVE TO DATE 11/29/23 08:17 Blood Culture - Preliminary Blood NEGATIVE TO DATE A&P Assessment and plan (1) Elevated troponin: Most likely this patient had a recent myocardial infarction. Apparently has no chest pain. Has features of acute diastolic heart failure. No acute EKG change. Patient may be continued on the Plavix, heparin and the statin. (2) Hypotension: This could be multifactorial. May continue the as needed dopamine. Qualifiers: Hypotension type: unspecified hypotension type Qualified Code(s): I95.9 - Hypotension, unspecified (3) Recent myocardial infarction of inferior wall: The EKG suggested inferior wall LA. We may consider doing a Myocardial perfusion imaging to further evaluate the coronary status, once his medical condition is more stable (4) Acute diastolic heart failure: Recent LA, LV dysfunction, acute renal failure, etc. are contributing factors. Clinically seems to be improving. He is currently on 3 L of oxygen nasal cannula. The oxygen saturation is 95%. (5) Acute renal failure superimposed on stage 3 chronic kidney disease: Status post hemodialysis. Possible repeat dialysis today. Qualifiers: Acute renal failure type: unspecified Chronic kidney disease stage 3 subtype: stage 3a (GFR 45-59) Qualified Code(s): N17.9 - Acute kidney failure, unspecified; N18.31 - Chronic kidney disease, stage 3a (6) Pyelonephritis: The patient is on IV antibiotics (7) Chronic calcific pancreatitis: Has been undergoing treatment in [place]. Details are not available. Plan Based on the clinical progress, further management decisions will be made. Attestations Medical Necessity Statement*: Patient requires continued hospital stay for close monitoring and further management Coding Level of Care Code 10954 Diagnoses Elevated troponin R79.89 Hypotension, unspecified hypotension type I95.9 Hypotension type: unspecified hypotension type Recent myocardial infarction of inferior wall Acute diastolic heart failure I50.31 Acute renal failure superimposed on stage 3a chronic kidney disease, unspecified acute renal failure type N17.9; N18.31 Acute renal failure type: unspecified Chronic kidney disease stage 3 subtype: stage 3a (GFR 45-59) Pyelonephritis N12 Chronic calcific pancreatitis K86.1
[2023-12-01 10:51] LABS: Glucose Point of Care 252 mg/dL (70-110)
[2023-12-01 11:30] LABS: Troponin T (5th) Once 346 ng/L (0-15)
[2023-12-01] MEDS: heparin, porcine 1,000 unit/mL INJ 10 mL 1000 UNIT IV (11:45)
[2023-12-01] MEDS: heparin, porcine 1,000 unit/mL INJ 10 mL 10000 UNIT INTRACATH (14:59)
--- NOTE | 2023-12-01 15:43 | CTR_ITS ---
PROCEDURE INFORMATION: Exam: CT Abdomen And Pelvis Without Contrast Exam date and time: 12/01/2023 5:59 PM Age: 73 years old Clinical indication: Pain and abnormal findings; Abnormal lab test; Abnormal kidney function lab tests and elevated wbc; Abdominal pain; Generalized; Prior surgery; Surgery date: 6+ months; Surgery type: Gb; Patient HX: Abd pain with wbc of 18k. Hematuria. Anand. Ng tube in place. ; Additional info: Gastric outlet obstruction, give po contrast through ng, wait 2hours before doing CT TECHNIQUE: Imaging protocol: Computed tomography of the abdomen and pelvis without contrast. Radiation optimization: All CT scans at this facility use at least one of these dose optimization techniques: automated exposure control; mA and/or kV adjustment per patient size (includes targeted exams where dose is matched to clinical indication); or iterative reconstruction. Other contrast: Oral, OMNI 350, 25ML CONTRAST WITH 425ML WATER; COMPARISON: CT kidney stone [id number] 11/29/2023 9:38 AM RADIATION DOSE METRICS: Total DLP (mGy-cm): 1222.77 FINDINGS: Tubes, catheters and devices: NGT in place, tip at gastric body. Pollard catheter present. Lungs: Increasing areas of bibasilar atelectasis or pneumonia with effusions. Heart: The heart is large. Liver: Unremarkable. No discrete mass. Gallbladder and bile ducts: Absent gallbladder. Minimal pneumobilia. Pancreas: Atrophic pancreas with glandular calcification. Spleen: The spleen is not enlarged. No suspicious mass is noted. Adrenal glands: Normal. No mass. Kidneys and ureters: Shkwo-zxdodgm-yzxj-left kidney stones again visualized. Stomach and bowel: The colon is rather fecal filled. No small bowel obstruction, abscess or free air. There is oral contrast beyond the stomach which is moderately dilated. Mild distal gastric wall thickening. There is oral contrast into the distal small bowel. Mild sigmoid diverticulosis. Appendix: Appendix not well seen. Intraperitoneal space: No abscess or free air. Mild diffuse mesenteric edema. Minimal ascites. Vasculature: Advanced diffuse vascular calcification noted. Lymph nodes: No enlarged lymph nodes. Urinary bladder: Unremarkable as visualized. Reproductive: Unremarkable as visualized. Bones/joints: Ixqp-wx-xehywqde spine DJD. Soft tissues: Diffuse anasarca. CT/CT abdomen pelvis wo con [id number] IMPRESSION: 1. Exam compared with 2 days ago. 2. There is oral contrast given, and there is no evidence of a complete gastric outlet obstruction. There is distal gastric wall thickening. Follow with GI. Consider need for EGD. 3. Progressive diffuse 3rd spacing of fluid with increasing bilateral mid to lower lung atelectasis or pneumonia with effusions, diffuse anasarca, and minimal ascites. 4. The colon is rather fecal filled. No small bowel obstruction, abscess or free air. 5. Numerous other chronic findings again seen.
--- NOTE | 2023-12-01 15:45 | P.PN_ITS ---
Subjective 2 Subjective: Patient was seen this morning, he is alert to person, to place, not to time, has NG tube placed, unfortunately he could not have a EGD last night, due to concerns from anesthesia of patient receiving sedation, he currently is n.p.o., does report feeling nauseous, he received dialysis last night, had about 2 L taken off of him, continues to feel short of breath is on 5 L, has 2+ pitting edema, we discussed doing dialysis today -He does develop intermittent bradycardi a, currently off dopamine drip -Woke to general surgery, about EGD, no plans on EGD for now, my concern would be for gastric outlet obstruction, and how to feed Osmer, as I am worried that he is developed aspiration pneumonia, as an etiology behind his sepsis, discussed doing a CT abdomen and pelvis with oral contrast, to delineate if contrast is getting beyond the area of obstruction, for now keep n.p.o., keep NG tube in ? Spoke to Dr. mcgee, spoke to nephrology, plans on dialysis today, I spoke to cardiology plans on cardiac catheterization versus stress testing based on clinical progress Vitals/I&O/Wt Last Vital Signs Temp 97.2 F L 12/01/23 15:14 Pulse 77 12/01/23 15:14 Resp 16 12/01/23 15:14 BP 108/70 12/01/23 15:14 Pulse Ox 99 12/01/23 14:00 O2 Del Method Nasal Cannula 12/01/23 14:00 O2 Flow Rate 3 12/01/23 14:00 12/01/23 12/01/23 12/01/23 06:59 14:59 22:59 Intake Total 2444.501 / 4218.526 1293.75 / 1293.75 300 / 1593.75 Output Total 3469 / 3744 3300 / 3300 Balance -1024.499 / 235.562 1554.75 / 1293.75 -3000 / -1706.25 Weight last 48 hrs Weight 97.5 kg Weight 99.5 kg Weight 98 kg Weight 97.579 kg Physical Exam 2 Const: COMMON NORMALS: no acute distress Resp: COMMON NORMALS: normal respiratory effort, No retractions and No use of accessory muscles AUSCULTATION: crackles and wheezes Cardio: COMMON NORMALS: regular rhythm, S1 normal heart sound present and S2 normal heart sound present RATE: bradycardic RHYTHM: regular rhythm H EART SOUNDS: S1 normal heart sound present and S2 normal heart sound present GI: COMMON NORMALS: Normal to inspection, nondistended, normoactive bowel sounds present and non-tender Extremity: NARRATIVE EXTREMITY EXAM: 2+ pitting edema Psych: COMMON NORMALS: mental status grossly normal Urinary Catheter Management: Pollard: Cath Placed During This Visit: yes Reason for Continuing Indwelling Catheter: Accurate Measurement of Urinary Output in Critically Ill Patients Urinary Catheter Date of Insertion: 11/29/23 Urinary Catheter Time of Insertion: 08:55 Data 12/01/23 05:00 12/01/23 05:00 Micro: Microbiology 11/29/23 08:47 Urine Culture - Preliminary Urine,Clean Catch Strep species, gamma-hemolytic A&P Assessment and plan (1) Pyelonephritis: (2) UTI (urinary tract infection): (3) Acute renal failure superimposed on stage 3 chronic kidney disease: Qualifiers: Acute renal failure type: unspecified Chronic kidney disease stage 3 subtype: stage 3a (GFR 45-59) Qualified Code(s): N17.9 - Acute kidney failure, unspecified; N18.31 - Chronic kidney disease, stage 3a (4) Hyperkalemia: (5) NSTEMI (non-ST elevated myocardial infarction): (6) Acute exacerbation of CHF (congestive heart failure): (7) Fluid overload: (8) Hypomagnesemia: (9) Anasarca: (10) Wall motion abnormality of inferior wall of left ventricle: (11) Bradycardia: (12) Gastric outlet obstruction: (13) Acute respiratory failure: (14) Aspiration pneumonia: Plan Acute hypoxic respiratory failure ? Multifactorial ? From fluid overload, diastolic CHF, ? Has received dialysis yesterday will receive dialysis today ?from aspiration pneumonia, with evidence of gastric outlet obstruction,keep n.p.o., IV antibiotics Aspiration pneumonia, ? With history of gastric outlet obstruction ? Keep n.p.o., ? IV antibiotics Acute pyelonephritis, with right CVA tenderness, UTI -meropenem, Zyvox -Follow urine cultures, blood cultures Acute renal failure on chronic kidney disease -Creatinine up to 6.9, continue bicarb drip ? Given elevated BNP, bilateral extreme edema, shortness of breath, anasarca will hold off on further fluid therapy due to risk of fluid overload ?Status post temporary dialysis catheter placement ? Receiving inpatient dialysis Hyperkalemia, resolved ? Status post calcium gluconate, insulin, D50, sodium bicarb, Kayexalate in the emergency room -Likely secondary renal failure ? Recheck serum potassium level ? Serial EKGs, serial troponins, telemetry monitoring Metabolic acidosis, likely secondary renal failure Acute systolic and diastolic CHF exacerbation ? Secondary to fluid overload, anasarca, lower extreme edema, ? Creatinine 7.3, troponin 390, BNP over 18,000 ?Did not respond to Lasix ? Receiving inpatient dialysis NSTEMI, with wall motion abnormalities on echo ? No chest pain complaints, -EKG no acute ST-T wave changes ? Continue Plavix, aspirin, heparin drip ? Cardiac echo CONCLUSIONS LV systolic function is mildly reduced with EF of 45 to 50%. Basal inferoseptal and anteroseptal peoples of moderate to severe hypokinesis. Mild mitral regurgitation Trace aortic regurgitation Mild tricuspid regurgitation Mild pulmonic regurgitation Ascending aorta is dilated with diameter of 3.98 cm. Compared to prior echocardiogram from 2017, LV systolic function has decreased ? Serial EKGs, serial troponins, telemetry monitoring -Cardiology consulted ? Inpatient stress testing versus angiogram, based on clinical progress Bradycardia, A-fib with slow ventricular response, -Atropine as needed -Repeat blood work, EKGs, chest x-ray, KUB ? Status post dopamine Anasarca as above Sepsis secondary to UTI, pyelonephritis given leukocytosis, elevated inflammatory markers, Gastric outlet obstruction 1. Marked distention of the stomach with fluid. There is a change in caliber in the duodenal C-loop. Spasm versus gastric outlet obstruction or obstructing neoplasm within the differential. -Keep n.p.o.,monitor NG tube output ? Cannot perform EGD as anesthesia has concerns about sedation ? Will perform CT scan abdomen pelvis with oral contrast -General surgery consulted Full code Heparin for DVT prophylaxis Attestations 2 Medical Necessity Statement*: Patient requires hospitalization, inpatient, greater than 2 midnights, for aspiration pneumonia, acute renal failure, acute pyelonephritis, acute respiratory failure, NSTEMI, fluid overload, wall motion abnormalities on echo, bradycardia Diagnoses Pyelonephritis N12 UTI (urinary tract infection) N39.0 Acute renal failure superimposed on stage 3a chronic kidney disease, unspecified acute renal failure type N17.9; N18.31 Acute renal failure type: unspecified Chronic kidney disease stage 3 subtype: stage 3a (GFR 45-59) Hyperkalemia E87.5 NSTEMI (non-ST elevated myocardial infarction) I21.4 Acute exacerbation of CHF (congestive heart failure) I50.9 Fluid overload E87.70 Hypomagnesemia E83.42 Anasarca R60.1 Wall motion abnormality of inferior wall of left ventricle R94.30 Bradycardia R00.1 Gastric outlet obstruction K31.1 Acute respiratory failure J96.00 Aspiration pneumonia J69.0
[2023-12-01 17:07] LABS: Glucose Point of Care 193 mg/dL (70-110)
[2023-12-01 17:29] LABS: Partial Thromboplastin Time > 250.0 SECONDS (23.9-36.7)
[2023-12-01] MEDS: iohexol 350 mg/mL 500 mL Btl (per mL) PO (18:01)
[2023-12-01 18:08] LABS: Partial Thromboplastin Time 217.8 SECONDS (23.9-36.7)
--- NOTE | 2023-12-01 18:15 | PC.NURSE ---
PTT critical, called Dr. Reardon, 1st PTT greater than 250, 2nd was 217.8. Orders to hold heparin gtt and recheck PTT in 4 hours. Order for PTT put in for 0.
--- NOTE | 2023-12-01 19:05 | PC.NURSE ---
MAR Upon initial assessment of patient, heparin drip paused while MAR displayed administration at 27 ml/hr. MAR updated to reflect paused medication. See MAR for details.
--- NOTE | 2023-12-01 19:38 | P.PN_ITS ---
Subjective 2 Subjective: No complaints Vitals/I&O/Wt Last Vital Signs Temp 97.9 F 12/01/23 19:30 Pulse 90 12/01/23 19:30 Resp 17 12/01/23 19:30 BP 128/78 12/01/23 19:30 Pulse Ox 96 12/01/23 19:30 O2 Del Method Nasal Cannula 12/01/23 16:00 O2 Flow Rate 3 12/01/23 16:00 12/01/23 12/01/23 12/01/23 06:59 14:59 22:59 Intake Total 2444.501 / 4218.526 1293.75 / 1293.75 1480 / 2773.75 Output Total 3469 / 3744 3475 / 3475 Balance -1024.499 / 859.043 4697.75 / 1293.75 -1994 / 701.25 Weight last 48 hrs Weight 214 lb 15.211 oz Weight 219 lb 5.759 oz Weight 216 lb 0.848 oz Weight 215 lb 2 oz Physical Exam 2 Narrative: Patient is a well developed well nourished and in NAD and is afebrile with vitals stable and is answering questions appropriately with a normal affect and is alert and oriented x3 HEENT: normocephalic with normal external ears and nonicteric, oral mucosa moist and dentition normal for age, trachea midline with no large masses visualized Heart: RRR, no gallops murmurs or rubs, normal PMI with no thrills Lungs: normal excursions, no loud audible wheezing, no subcutaneous emphysema Abdomen: nondistended, no gross hepatosplenomegaly, no masses, no rigidity or rebound, no loud borborygmi Neuro: nonfocal, MATHEW, grossly normal sensation Musculoskeletal: good muscle tone, no fasciculations Skin: pink warm and dry with no rashes or ecchymosis Vascular: good radial pulses, no ulceration, less than 2 second capillary refill in hand : deferred Urinary Catheter Management: Pollard: Cath Placed During This Visit: yes Reason for Continuing Indwelling Catheter: Accurate Measurement of Urinary Output in Critically Ill Patients Urinary Catheter Date of Insertion: 11/29/23 Urinary Catheter Time of Insertion: 08:55 Data 12/01/23 05:00 12/01/23 05:00 Micro: Microbiology 11/29/23 08:47 Urine Culture - Preliminary Urine,Clean Catch Strep species, gamma-hemolytic A&P Assessment and plan (1) Aspiration pneumonia: CT with oral contrast does no show a complete gastric outlet obstruction. Place NG to gravity drainage and eventually consider removing NG once output is low. He should go to GI specialist he has gone to in past in [facility] for possible gastric outlet obstruction which could be balloon dilated if present. Anesthesia feels patient is too high risk at this time to proceed with EGD. I would not recommend dilation of any strictures in pyloric channel at this time since if any complications occur he will not do well with other medical problems occuring right now including need for dialysis and CHF. The EGD and temporary dialysis catheter could not be done yesterday because anesthesia felt patient was too high risk to have IV sedation given. THe dialysis catheter was then done under strict local at ICU bedside. Attestations 2 Medical Necessity Statement*: Acute renal failure and CHF Coding Level of Care Code 69434 Diagnoses Aspiration pneumonia J69.0
[2023-12-01 20:50] LABS: Glucose Point of Care 191 mg/dL (70-110)
[2023-12-01 22:52] LABS: Partial Thromboplastin Time 47.3 SECONDS (23.9-36.7)
--- NOTE | 2023-12-01 23:47 | PC.NURSE ---
Heparin Drip Patient's ptt resulted at 47.3. Dr. Plata notified; order received to restart heparin drip at 12 units/kg/hr. See MAR for details.
[2023-12-02] VITALS (59 sets, daily range): BP systolic 92–146; BP diastolic 49–86; PULSE 42–120; RESP 13–23; TEMP 36.5–36.9; O2SAT 17–99; BMI 29.1
[2023-12-02] MEDS: linezolid premix 600 MG/300 ML PREMIX 300 MG IV ×2 (00:02→17:04)
[2023-12-02] MEDS: morphine 4 mg/mL SDV 1 mL 1 MG IVP ×5 (00:05→23:24)
--- NOTE | 2023-12-02 03:12 | PC.NURSE ---
Patient has had runs of a wide complex arrhythmia that would convert back to a-fib without interventions. Dr. Plata was notified, no new orders.
[2023-12-02 03:43] LABS: Basophils % 0.2 %; Eosinophils # 0.1 10^3/uL (0.0-0.8); Hematocrit 30.3 % (37-53); Lymphocytes # 1.8 10^3/uL (0.8-4.8); Lymphocytes % 13.2 %; Mean Corpuscular HGB Conc 32.7 g/dL (30-55); Mean Corpuscular Hemoglobin 29.7 pg (27-33); Mean Platelet Volume 11.6 fL (7.4-10.4); Monocytes # 0.6 10^3/uL (0.2-0.9); Monocytes % 4.7 %; Neutrophils # 10.72 10^3/uL (1.8-7.7); Neutrophils % 79.6 %; Nucleated Red Blood Cells % 0 %; Platelet Count 132 10^3/cmm (157-399); Red Blood Count 3.33 10^6/uL (3.85-5.65); Red Cell Distribution Width 14.4 % (12.1-15.1); White Blood Count 13.48 10^3/uL (3.29-11.43)
[2023-12-02 03:52] LABS: INR 2.59 (0.8-1.2)
[2023-12-02 03:57] LABS: Lactate (Lactic Acid level) 1.6 mmol/L (0.5-2.2)
[2023-12-02 04:03] LABS: C Reactive Protein 184.2 mg/L (0.0-4.9)
[2023-12-02] MEDS: albumin 25 G/100 ML BAG 60 G IV ×3 (04:05→20:05)
[2023-12-02 04:16] LABS: NT Pro B Type Natriuretic Pept 18726 pg/mL (0-125); Procalcitonin 0.81 ng/mL (0-0.5)
[2023-12-02 04:28] LABS: Creatine Phosphokinase 64 U/L (39-308)
[2023-12-02 04:31] LABS: Blood Urea Nitrogen 37 mg/dL (8-23); Calcium 9.1 mg/dL (8.5-10.5); Carbon Dioxide 22 mmol/L (22-29); Creatinine Clr Calc Pharmacy 20.6395; Glucose 192 mg/dL (65-115); Magnesium 1.7 mg/dL (1.7-2.3); Osmolality Calculated 286 mOsm/kg (285-295); Phosphorus 7.1 mg/dL (2.5-4.5); Sodium 131 mmol/L (136-145)
[2023-12-02 04:32] LABS: Alanine Aminotransferase 63 U/L (0-41); Albumin Level 3.2 g/dL (3.5-5.2); Alkaline Phosphatase 838 U/L (40-130); Aspartate Amino Transferase 121 U/L (0-40); Chloride 90 mmol/L (98-107); Globulin 2.8 g/dL (1.3-4.6)
[2023-12-02 04:33] LABS: Anion Gap 23.5 (5-19); Potassium 4.5 mmol/L (3.5-5.1)
[2023-12-02] MEDS: DOPamine drip 400 MG/250 ML PREMIX 18.3000000000000007 MG IV (05:06)
[2023-12-02 05:54] LABS: Partial Thromboplastin Time 130.9 SECONDS (23.9-36.7)
--- NOTE | 2023-12-02 06:35 | P.PN_ITS ---
Subjective 2 Subjective: s/p HD yesterday Medications: Reviewed: Yes Vitals/I&O/Wt Last Vital Signs Temp 98.2 F 12/02/23 04:00 Pulse 51 L 12/02/23 06:00 Resp 14 12/02/23 06:00 BP 102/53 12/02/23 06:00 Pulse Ox 89 L 12/02/23 06:00 O2 Del Method Nasal Cannula 12/02/23 05:23 O2 Flow Rate 5 12/02/23 05:23 12/01/23 12/01/23 12/02/23 14:59 22:59 06:59 Intake Total 1293.75 / 1293.75 1758.6 / 3052.35 551.842 / 3604.192 Output Total 3475 / 3475 200 / 3675 Balance 1293.75 / 1293.75 -1716.4 / -422.65 351.842 / -70.808 Weight last 48 hrs Weight 97.5 kg Weight 97.5 kg Weight 99.5 kg Weight 98 kg Physical Exam 2 Narrative: lethargic +NGT S1 S2 RRR per report lUNGS CLEAR PER REPORT + EDEMA Urinary Catheter Management: Pollard: Cath Placed During This Visit: yes Reason for Continuing Indwelling Catheter: Accurate Measurement of Urinary Output in Critically Ill Patients Urinary Catheter Date of Insertion: 11/29/23 Urinary Catheter Time of Insertion: 08:55 Data 12/02/23 03:17 12/02/23 03:17 Micro: Microbiology 11/29/23 08:47 Urine Culture - Preliminary Urine,Clean Catch Strep species, gamma-hemolytic A&P Assessment and plan (1) Acute renal failure superimposed on stage 3 chronic kidney disease: Qualifiers: Acute renal failure type: unspecified Chronic kidney disease stage 3 subtype: stage 3a (GFR 45-59) Qualified Code(s): N17.9 - Acute kidney failure, unspecified; N18.31 - Chronic kidney disease, stage 3a Plan 1. Acute on chronic kidney disease stage III: Baseline creatinine is in the 2 range patient now presented with JIA with a creatinine of 7.3 associated with metabolic acidosis and hyperkalemia and volume overload. His current JIA most likely ATN in the setting of acute infection/UTI, and possible prerenal. -s/p t temporary HD catheter placement and hD x 2 sessions , assess daily for HD needs -Avoid nephrotoxins and IV contrast studies. 2. Metabolic acidosis: s/p bicarbonate drip, s/p HD monitor 3. Pyelonephritis, on antibiotics 4. ? gastric outlet obstruction on CT, patient has NGT and general surgery following , 5. Elevated BNP, echo pending 6. CHF Patient evaluated using audiovisual cart. Time spent 20 minutes. Attestations 2 Medical Necessity Statement*: per [facility] Coding Level of Care Code Acute Code for Chg Fwd Diagnoses Acute renal failure superimposed on stage 3a chronic kidney disease, unspecified acute renal failure type N17.9; N18.31 Acute renal failure type: unspecified Chronic kidney disease stage 3 subtype: stage 3a (GFR 45-59)
[2023-12-02 07:34] LABS: Glucose Point of Care 259 mg/dL (70-110)
[2023-12-02] MEDS: pantoprazole DR 40 mg Tablet PO ×2 (08:34→17:14)
[2023-12-02] MEDS: amitriptyline 25 mg Tablet PO (08:34)
[2023-12-02] MEDS: clopidogrel 75 mg Tablet PO (08:34)
[2023-12-02] MEDS: atorvastatin 40 mg Tablet PO (08:34)
[2023-12-02] MEDS: aspirin 81 mg EC Tablet PO (08:34)
[2023-12-02] MEDS: meropenem 500 MG in sodium chloride 0.9% (plus) 50 ML 100 MG IV ×2 (08:37→20:05)
[2023-12-02] MEDS: insulin lispro 100 unit/1 mL SUBCUT ×4 (08:37→20:05)
--- NOTE | 2023-12-02 09:51 | P.PN_ITS ---
Subjective 2 Subjective: The patient continues to be drowsy. Had the second dialysis yesterday. BUN/creatinine levels are coming down. Telemetry shows sinus tachycardia with PACs. Blood pressure seems to be stable. Remains afebrile. Medications: Medication Review Details: Current Medications Acetaminophen (Acetaminophen 325 Mg Tablet) 650 mg PO QID PRN PRN Reason: Pain Amitriptyline HCl (Amitriptyline 25 Mg Tablet) 25 mg PO DAILY [facility] Last Admin: 12/02/23 08:34 Dose: 25 mg Aspirin (Aspirin 81 Mg Ec Tablet) 81 mg PO DAILY [facility] Last Admin: 12/02/23 08:34 Dose: 81 mg Atorvastatin Calcium (Atorvastatin 40 Mg Tablet) 40 mg PO DAILY [facility] Last Admin: 12/02/23 08:34 Dose: 40 mg Atropine Sulfate (Atropine 0.1 Mg/Ml Syr 10 Ml) 0.5 mg IVP Q5MIN PRN PRN Reason: for hr<60, and hypotension, call MD before use Clopidogrel Bisulfate (Clopidogrel 75 Mg Tablet) 75 mg PO DAILY [facility] Last Admin: 12/02/23 08:34 Dose: 75 mg Heparin Sodium (Porcine) (Heparin 5,000 Unit/Ml Inj 1 Ml) 0 unit IV PRN PRN; Protocol PRN Reason: Heparin weight-base protocol Meropenem 500 mg/ Sodium (Chloride) 50 mls @ 100 mls/hr IV Q12H [facility]; Protocol Last Infusion: 12/02/23 09:07 Dose: Infused Linezolid (Zyvox Premix) 600 mg in 300 mls @ 300 mls/hr IV Q12H [facility]; Protocol Last Infusion: 12/02/23 01:37 Dose: Infused Dextrose (D5w) 500 mls @ 0 mls/hr IV ONCE PRN; Protocol PRN Reason: Adult Acute Hypoglycemia Prot Dextrose (D10w) 125 mls @ 750 mls/hr IV PRN PRN; Protocol PRN Reason: Adult Acute Hypoglycemia Nursing Protocol Dextrose (D10w) 250 mls @ 1,000 mls/hr IV PRN PRN; Protocol PRN Reason: Adult Acute Hypoglycemia Nursing Protocol Albumin Human (Albumin) 25 g in 100 mls @ 60 mls/hr IV Q8H [facility] Last Infusion: 12/02/23 05:46 Dose: Infused Heparin Sodium/Sodium Chloride (Heparin Drip) 25,000 unit in 500 mls @ 0 mls/hr IV .Q0M [facility]; Protocol Last Titration: 12/02/23 05:59 Dose: 8.97 unit/kg/hr, 17.5 mls/hr Dopamine HCl/Dextrose (Intropin Drip) 400 mg in 250 mls @ 18.296 mls/hr IV CONT [facility]; Protocol Last Titration: 12/02/23 09:40 Dose: 0 mcg/kg/min, 0 mls/hr Sodium Chloride (Sodium Chloride 0.9%) 1,000 mls @ 0 mls/hr IV .Q0M PRN PRN Reason: hypotension or symptomatic Albumin Human (Albumin) 12.5 gm in 50 mls @ 60 mls/hr IV PRN PRN PRN Reason: Hypotension and/or symptomatic Sodium Chloride (Sodium Chloride 0.9%) 1,000 mls @ 0 mls/hr IV .Q0M PRN PRN Reason: hypotension or symptomatic Albumin Human (Albumin) 12.5 gm in 50 mls @ 60 mls/hr IV PRN PRN PRN Reason: Hypotension and/or symptomatic Insulin Human Lispro (Insulin Lispro 100 Unit/1 Ml) 0 unit SUBCUT WM&BEDTIME [facility]; Protocol Last Admin: 12/02/23 08:37 Dose: 8 unit Metoclopramide HCl (Metoclopramide 5 Mg/Ml Sdv 2 Ml) 5 mg IVP Q6H PRN PRN Reason: NAUSEA AND VOMITING Morphine Sulfate (Morphine 4 Mg/Ml Sdv 1 Ml) 1 mg IVP Q4H PRN PRN Reason: SEVERE PAIN Last Admin: 12/02/23 04:04 Dose: 1 mg Naloxone HCl (Naloxone 0.4 Mg/Ml Sdv) 0.1 mg IVP Q2M PRN PRN Reason: OPIATERV Ondansetron HCl (Ondansetron 2 Mg/Ml Sdv 2 Ml) 4 mg IVP Q6H PRN PRN Reason: NAUSEA AND VOMITING Last Admin: 11/30/23 15:05 Dose: 4 mg Pantoprazole Sodium (Pantoprazole Dr 40 Mg Tablet) 40 mg PO BID [facility] Last Admin: 12/02/23 08:34 Dose: 40 mg Vitals/I&O/Wt Last Vital Signs Temp 97.8 F 12/02/23 08:00 Pulse 119 H 12/02/23 08:30 Resp 14 12/02/23 08:30 BP 136/78 12/02/23 08:30 Pulse Ox 97 12/02/23 08:30 O2 Del Method Nasal Cannula 12/02/23 05:23 O2 Flow Rate 5 12/02/23 05:23 12/01/23 12/02/23 12/02/23 22:59 06:59 14:59 Intake Total 1758.6 / 3052.35 651.842 / 3704.192 163.878 / 163.878 Output Total 3475 / 3475 200 / 3675 Balance -1716.4 / -422.65 451.842 / 29.192 163.878 / 163.878 Weight last 48 hrs Weight 214 lb 15.211 oz Weight 214 lb 15.211 oz Weight 219 lb 5.759 oz Weight 216 lb 0.848 oz Physical Exam 2 Narrative: GENERAL: The patient is drowsy but responds to questions appropriately HEENT: Minimal pallor. No icterus or lymphadenopathy.Oral cavity: There are no mucous membrane lesions. NECK: Trachea appears to be central. No masses noted. No JVD or thyromegaly appreciated. RESPIRATORY: Chest is symmetrical. No intercostals muscle retraction or any accessory muscle activation. There is no chest wall tenderness. Breath sounds are heard bilaterally. No rales or rhonchi heard. No evidence of any consolidation. BREASTS: Deferred. HEART: The heart sounds are normal. No S3 or S4. No significant murmurs. No pericardial rub ABDOMEN: Slightly distended. Bowel sounds are normally heard. Vague tenderness in epigastric area : Deferred. RECTAL: Deferred. LYMPHATIC: No lymphadenopathy noted in the neck. EXTREMITIES: 2-3+ edema of the lower extremities. Edema of the scrotum and penis is improving MUSCULOSKELETAL: No acute joint deformities or swelling SKIN: There are no significant rashes or ecchymosis NEUROPSYCHIATRIC: The patient is drowsy. No new neurological deficit Urinary Catheter Management: Pollard: Cath Placed During This Visit: yes Reason for Continuing Indwelling Catheter: Accurate Measurement of Urinary Output in Critically Ill Patients Urinary Catheter Date of Insertion: 11/29/23 Urinary Catheter Time of Insertion: 08:55 Data 12/02/23 03:17 12/02/23 03:17 Other Labs: Laboratory Last Values WBC 13.48 10^3/uL (3.29-11.43) H 12/02/23 03:17 RBC 3.33 10^6/uL (3.85-5.65) L 12/02/23 03:17 Hgb 9.90 g/dL (11.27-16.99) L 12/02/23 03:17 Hct 30.3 % (37-53) L 12/02/23 03:17 MCV 91.0 fl (82-101) 12/02/23 03:17 MCH 29.7 pg (27-33) 12/02/23 03:17 MCHC 32.7 g/dL (30-55) 12/02/23 03:17 RDW 14.4 % (12.1-15.1) 12/02/23 03:17 Plt Count 132 10^3/cmm (157-399) L 12/02/23 03:17 MPV 11.6 fL (7.4-10.4) H 12/02/23 03:17 Neut % (Auto) 79.6 % 12/02/23 03:17 Lymph % (Auto) 13.2 % 12/02/23 03:17 [place] % (Auto) 4.7 % 12/02/23 03:17 Eos % (Auto) 1.0 % 12/02/23 03:17 Baso % (Auto) 0.2 % 12/02/23 03:17 Neut # (Auto) 10.72 10^3/uL (1.8-7.7) H 12/02/23 03:17 Lymph # (Auto) 1.8 10^3/uL (0.8-4.8) 12/02/23 03:17 [place] # (Auto) 0.6 10^3/uL (0.2-0.9) 12/02/23 03:17 Eos # (Auto) 0.1 10^3/uL (0.0-0.8) 12/02/23 03:17 Baso # (Auto) 0.0 10^3/uL (0.0-0.1) 12/02/23 03:17 Nucleated RBC % (auto) 0 % 12/02/23 03:17 Nucleated RBCs # 0.0 /100WBC 12/02/23 03:17 PT 28.70 SECONDS (12.1-14.9) H 12/02/23 03:17 INR 2.59 (0.8-1.2) H 12/02/23 03:17 APTT 130.9 SECONDS (23.9-36.7) H D 12/02/23 05:30 Specimen Type Arterial 11/30/23 13:35 Sample Site Brachial, right 11/30/23 13:35 ABG pH 7.30 (7.35-7.45) L 11/30/23 13:35 ABG pCO2 33.6 mmHg (35-45) L 11/30/23 13:35 ABG pO2 69.7 mmHg (80.0-100.0) L 11/30/23 13:35 ABG PO2/FiO2 Ratio 0 11/30/23 13:35 ABG HCO3 16.5 mmol/L (22-26) L 11/30/23 13:35 ABG Base Excess -9.0 mmol/L (-2.0-2.0) L 11/30/23 13:35 Jose Carlos Test Pos 11/30/23 13:35 Hematocrit 32.5 % (42-52) L 11/30/23 13:35 O2 Delivery Device Room air 11/30/23 13:35 FiO2 21.0 % 11/30/23 13:35 Psychiatric Nurse ID Monro 11/30/23 13:35 Sodium 131 mmol/L (136-145) L 12/02/23 03:17 Potassium 4.5 mmol/L (3.5-5.1) 12/02/23 03:17 Chloride 90 mmol/L (98-107) L 12/02/23 03:17 Carbon Dioxide 22 mmol/L (22-29) 12/02/23 03:17 Anion Gap 23.5 (5-19) H 12/02/23 03:17 BUN 37 mg/dL (8-23) H 12/02/23 03:17 Creatinine 3.8 mg/dL (0.7-1.2) H 12/02/23 03:17 GFR Calculation Not Reportable 12/02/23 03:17 Glucose 192 mg/dL (65-115) H 12/02/23 03:17 POC Glucose 259 mg/dL (70-110) H 12/02/23 07:31 Estimat Average Glucose 163 11/29/23 08:17 Hemoglobin A1c 7.3 % (4.0-6.0) H 11/29/23 08:17 Calculated Osmolality 286 mOsm/kg (285-295) 12/02/23 03:17 Lactic Acid 1.6 mmol/L (0.5-2.2) 11/29/23 08:17 Lactate 1.6 mmol/L (0.5-2.2) 12/02/23 03:17 Calcium 9.1 mg/dL (8.5-10.5) 12/02/23 03:17 Phosphorus 7.1 mg/dL (2.5-4.5) H 12/02/23 03:17 Magnesium 1.7 mg/dL (1.7-2.3) 12/02/23 03:17 Total Bilirubin 1.0 mg/dL (0.15-1.2) 12/02/23 03:17 AST 121 U/L (0-40) H 12/02/23 03:17 ALT 63 U/L (0-41) H 12/02/23 03:17 Alkaline Phosphatase 838 U/L (40-130) H 12/02/23 03:17 Creatine Kinase 64 U/L (39-308) 12/02/23 03:17 Troponin T 5th Gen ng/L 346 ng/L (0-15) H* 12/01/23 10:43 Troponin T Baseline 336 ng/L (0-15) H* 11/30/23 13:01 Troponin T 120 Minute 331.8 ng/L (0-15) H 11/30/23 14:47 Delta Troponin T -4.2 ABS# (0-10) L 11/30/23 14:47 Troponin T Hi Sens 6Hr 339.4 ng/L (0-15) H 11/30/23 18:45 Troponin T Hi Sens 6Hr Delta 3.4 ng/L (0-12) 11/30/23 18:45 C-Reactive Protein 184.2 mg/L (0.0-4.9) H 12/02/23 03:17 NT-Pro-B Natriuret Pep 31785 pg/mL (0-125) H 12/02/23 03:17 Total Protein 6.0 g/dL (6.6-8.7) L 12/02/23 03:17 Albumin 3.2 g/dL (3.5-5.2) L 12/02/23 03:17 Globulin 2.8 g/dL (1.3-4.6) 12/02/23 03:17 Triglycerides 207 mg/dL (0-150) H 11/29/23 08:17 Cholesterol 63 mg/dL (0-200) 11/29/23 08:17 LDL Cholesterol, Calc 9 mg/dL (50-129) L 11/29/23 08:17 HDL Cholesterol 13 mg/dL (60-100) L 11/29/23 08:17 LDL/HDL Ratio 0.69 RATIO (0.00-3.22) 11/29/23 08:17 Cholesterol/HDL Ratio 4.85 mg/dL (1.0-5.00) 11/29/23 08:17 Procalcitonin 0.81 ng/mL (0-0.5) H 12/02/23 03:17 TSH 1.89 uIU/mL (0.27-4.20) 11/29/23 08:17 Urine Color Straw (Yellow) 11/29/23 08:47 Urine Appearance Cloudy (CLEAR) A 11/29/23 08:47 Urine pH 6.5 (5-7) 11/29/23 08:47 Ur Specific [place] 1.010 (1.005-1.030) 11/29/23 08:47 Urine Protein 1+ (Negative) H 11/29/23 08:47 Urine Glucose (UA) 2+ (Normal) H 11/29/23 08:47 Urine Ketones Negative (Negative) 11/29/23 08:47 Urine Blood 3+ (Negative) H 11/29/23 08:47 Urine Nitrate Negative (Negative) 11/29/23 08:47 Urine Bilirubin Neg (Negative) 11/29/23 08:47 Urine Urobilinogen Neg mg/dL (Negative) 11/29/23 08:47 Ur Leukocyte Esterase 2+ (Negative) H 11/29/23 08:47 Urine RBC 5-10 /hpf (0-2) H 11/29/23 08:47 Urine WBC Too numerous to cnt /hpf (0-5) H 11/29/23 08:47 Ur Squamous Epith Cells 0-4 /hpf (0-5) H 11/29/23 08:47 Amorphous Sediment Not Reportable 03/14/24 08:47 Urine Bacteria 3+ /hpf (NONE) H 11/29/23 08:47 Hep Bs Antigen Non-reactive (Nonreactive) 11/30/23 14:47 Hep Bs Antibody < 3.5 (11.5-1000) L 11/30/23 14:47 Micro: Microbiology 11/29/23 08:47 Urine Culture - Final Urine,Clean Catch A&P Assessment and plan (1) Elevated troponin: Most likely this patient had a recent myocardial infarction. Apparently has no chest pain. Has features of acute diastolic heart failure. No acute EKG change. Patient may be continued on the Plavix, heparin and the statin. (2) Hypotension: Currently seems to be normotensive. Qualifiers: Hypotension type: unspecified hypotension type Qualified Code(s): I95.9 - Hypotension, unspecified (3) Recent myocardial infarction of inferior wall: The EKG suggested inferior wall AR. We may consider doing a Myocardial perfusion imaging/cardiac catheterization to further evaluate the coronary status, once his medical condition is more stable (4) Acute diastolic heart failure: Recent AR, LV dysfunction, acute renal failure, etc. are contributing factors. Currently he is on 5 L of oxygen by nasal cannula (5) Acute renal failure superimposed on stage 3 chronic kidney disease: Hemodialysis as per the nephrology service Qualifiers: Acute renal failure type: unspecified Chronic kidney disease stage 3 subtype: stage 3a (GFR 45-59) Qualified Code(s): N17.9 - Acute kidney failure, unspecified; N18.31 - Chronic kidney disease, stage 3a (6) Pyelonephritis: The patient is on IV antibiotics. Currently he is afebrile. (7) Chronic calcific pancreatitis: Has been undergoing treatment in [place]. Details are not available. Plan Discussed with the patient's family, . From a cardiac standpoint, the patient did not require any specific intervention. Consider Myocardial perfusion imaging or cardiac catheterization, once his mental status is improved Attestations 2 Medical Necessity Statement*: Deferred to the primary Coding Level of Care Code 37348 Diagnoses Elevated troponin R79.89 Hypotension, unspecified hypotension type I95.9 Hypotension type: unspecified hypotension type Recent myocardial infarction of inferior wall Acute diastolic heart failure I50.31 Acute renal failure superimposed on stage 3a chronic kidney disease, unspecified acute renal failure type N17.9; N18.31 Acute renal failure type: unspecified Chronic kidney disease stage 3 subtype: stage 3a (GFR 45-59) Pyelonephritis N12 Chronic calcific pancreatitis K86.1
[2023-12-02 11:07] LABS: Glucose Point of Care 248 mg/dL (70-110)
[2023-12-02] MEDS: heparin drip 25,000 UNIT/500 ML PREMIX 17.5 UNIT IV (11:19)
[2023-12-02] MEDS: FUROsemide 10 mg/mL SDV 10mL 80 MG IVP (11:56)
[2023-12-02 12:47] LABS: Partial Thromboplastin Time 54.5 SECONDS (23.9-36.7)
[2023-12-02] MEDS: heparin, porcine 1,000 unit/mL INJ 10 mL 1000 UNIT IV (13:45)
--- NOTE | 2023-12-02 14:15 | P.PN_ITS ---
Subjective 2 Subjective: Patient was seen this morning, is at bedside, he is alert to person, to place, not to time, he is very drowsy this morning, is at bedside I cannot discern any focal weakness, he is moving both upper lower extremities, but quite drowsy this morning, patient has told me that he did not sleep during the night, Vitals/I&O/Wt Last Vital Signs Temp 97.7 F 12/02/23 14:00 Pulse 100 12/02/23 14:00 Resp 15 12/02/23 14:00 BP 136/85 12/02/23 14:00 Pulse Ox 96 12/02/23 14:00 O2 Del Method Nasal Cannula 12/02/23 05:23 O2 Flow Rate 5 12/02/23 05:23 12/01/23 12/02/23 12/02/23 22:59 06:59 14:59 Intake Total 1758.6 / 3052.35 651.842 / 3704.192 276.753 / 276.753 Output Total 3475 / 3475 200 / 3675 Balance -1716.4 / -422.65 451.842 / 29.192 276.753 / 276.753 Weight last 48 hrs Weight 97.5 kg Weight 97.5 kg Weight 99.5 kg Weight 98 kg Physical Exam 2 Const: COMMON NORMALS: no acute distress ORIENTATION/CONSCIOUSNESS: Yes awake, Yes oriented to person, Yes oriented to place and Yes confused; not oriented to time Resp: COMMON NORMALS: normal respiratory effort, No retractions and No use of accessory muscles AUSCULTATION: wheezes Cardio: COMMON NORMALS: regular rate, regular rhythm, S1 normal heart sound present and S2 normal heart sound present RATE: regular rate RHYTHM: r egular rhythm HEART SOUNDS: S1 normal heart sound present and S2 normal heart sound present GI: COMMON NORMALS: Normal to inspection, nondistended, normoactive bowel sounds present and non-tender Extremity: COMMON NORMALS: no pedal edema Neuro: SENSORIUM/ORIENTATION: Yes oriented to person, Yes oriented to place and No oriented to time Urinary Catheter Management: Pollard: Cath Placed During This Visit: yes Reason for Continuing Indwelling Catheter: Accurate Measurement of Urinary Output in Critically Ill Patients Urinary Catheter Date of Insertion: 11/29/23 Urinary Catheter Time of Insertion: 08:55 Data 12/02/23 03:17 12/02/23 03:17 Micro: Microbiology 11/29/23 08:47 Urine Culture - Final Urine,Clean Catch A&P Assessment and plan (1) Pyelonephritis: (2) UTI (urinary tract infection): (3) Acute renal failure superimposed on stage 3 chronic kidney disease: Qualifiers: Acute renal failure type: unspecified Chronic kidney disease stage 3 subtype: stage 3a (GFR 45-59) Qualified Code(s): N17.9 - Acute kidney failure, unspecified; N18.31 - Chronic kidney disease, stage 3a (4) Hyperkalemia: (5) NSTEMI (non-ST elevated myocardial infarction): (6) Acute exacerbation of CHF (congestive heart failure): (7) Fluid overload: (8) Hypomagnesemia: (9) Anasarca: (10) Wall motion abnormality of inferior wall of left ventricle: (11) Bradycardia: (12) Gastric outlet obstruction: (13) Acute respiratory failure: (14) Aspiration pneumonia: Plan Acute encephalopathy ? Monitor mentation closely ? NIH stroke scale, neurochecks, aspiration precautions, ? Repeat head CT, ? Check ammonia levels Acute hypoxic respiratory failure ? Multifactorial ? From fluid overload, diastolic CHF, ? Has received dialysis yesterday will receive dialysis today ?from aspiration pneumonia, Aspiration pneumonia, ? With history of gastric outlet obstruction ? IV antibiotics Acute pyelonephritis, with right CVA tenderness, UTI -meropenem, Zyvox -Follow urine cultures, blood cultures Acute renal failure on chronic kidney disease -Creatinine up to 3.8 ? Given elevated BNP, bilateral extreme edema, shortness of breath, anasarca w ?Status post temporary dialysis catheter placement ? Receiving inpatient dialysis Hyperkalemia, resolved ? Status post calcium gluconate, insulin, D50, sodium bicarb, Kayexalate in the emergency room -Likely secondary renal failure ? Recheck serum potassium level ? Serial EKGs, serial troponins, telemetry monitoring Metabolic acidosis, likely secondary renal failure Acute systolic and diastolic CHF exacerbation ? Secondary to fluid overload, anasarca, lower extreme edema, ? Creatinine 3.4, troponin 390, BNP over 18,000 ?Did not respond to Lasix ? Receiving inpatient dialysis NSTEMI, with wall motion abnormalities on echo ? No chest pain complaints, -EKG no acute ST-T wave changes ? Continue Plavix, aspirin, heparin drip ? Cardiac echo CONCLUSIONS LV systolic function is mildly reduced with EF of 45 to 50%. Basal inferoseptal and anteroseptal peoples of moderate to severe hypokinesis. Mild mitral regurgitation Trace aortic regurgitation Mild tricuspid regurgitation Mild pulmonic regurgitation Ascending aorta is dilated with diameter of 3.98 cm. Compared to prior echocardiogram from 2017, LV systolic function has decreased ? Serial EKGs, serial troponins, telemetry monitoring -Cardiology consulted ? Inpatient stress testing versus angiogram, based on clinical progress Bradycardia, A-fib with slow ventricular response, -Atropine as needed -Repeat blood work, EKGs, chest x-ray, KUB ? Status post dopamine, wean off Anasarca as above Sepsis secondary to UTI, pyelonephritis given leukocytosis, elevated inflammatory markers, Gastric outlet obstruction 1. Marked distention of the stomach with fluid. There is a change in caliber in the duodenal C-loop. Spasm versus gastric outlet obstruction or obstructing neoplasm within the differential. -Keep n.p.o.,monitor NG tube output ? Cannot perform EGD as anesthesia has concerns about sedation CT/CT abdomen pelvis wo con [id number] IMPRESSION: 1. Exam compared with 2 days ago. 2. There is oral contrast given, and there is no evidence of a complete gastric outlet obstruction. There is distal gastric wall thickening. Follow with GI. Consider need for EGD. 3. Progressive diffuse 3rd spacing of fluid with increasing bilateral mid to lower lung atelectasis or pneumonia with effusions, diffuse anasarca, and minimal ascites. 4. The colon is rather fecal filled. No small bowel obstruction, abscess or free air. 5. Numerous other chronic findings again seen. -General surgery consulted Full code Heparin for DVT prophylaxis Spoke to general surgery about CAT scan results, plans on removing NG tube as he has had only 20 mL of output, will have speech therapy evaluate him bedside nurse swallow eval consider clear liquid diet, he is quite drowsy once his mentation improves will consider advancing his diet, remains on dopamine therefore will wean off Attestations 2 Medical Necessity Statement*: Patient requires hospitalization for acute respiratory failure, Diagnoses Pyelonephritis N12 UTI (urinary tract infection) N39.0 Acute renal failure superimposed on stage 3a chronic kidney disease, unspecified acute renal failure type N17.9; N18.31 Acute renal failure type: unspecified Chronic kidney disease stage 3 subtype: stage 3a (GFR 45-59) Hyperkalemia E87.5 NSTEMI (non-ST elevated myocardial infarction) I21.4 Acute exacerbation of CHF (congestive heart failure) I50.9 Fluid overload E87.70 Hypomagnesemia E83.42 Anasarca R60.1 Wall motion abnormality of inferior wall of left ventricle R94.30 Bradycardia R00.1 Gastric outlet obstruction K31.1 Acute respiratory failure J96.00 Aspiration pneumonia J69.0
--- NOTE | 2023-12-02 14:19 | CTR_ITS ---
PROCEDURE INFORMATION: Exam: CT Head Without Contrast Exam date and time: 12/02/2023 6:23 PM Age: 73 years old Clinical indication: Altered mental status/memory loss; Confusion or disorientation; Additional info: AMS TECHNIQUE: Imaging protocol: Computed tomography of the head without contrast. Radiation optimization: All CT scans at this facility use at least one of these dose optimization techniques: automated exposure control; mA and/or kV adjustment per patient size (includes targeted exams where dose is matched to clinical indication); or iterative reconstruction. COMPARISON: MR head wo/w con [id number] 09/04/2017 9:53 AM RADIATION DOSE METRICS: Total DLP (mGy-cm): 1228.88 FINDINGS: Brain: Atrophic or involutional change for age is seen. Moderate periventricular and subcortical deep white matter low attenuation bilaterally suggests chronic small-vessel disease change. Findings are similar though mildly progressed from 2017 exam. No intracranial hemorrhage or hematoma is seen. No mass effect or shift of midline structures. No findings of territorial or large vessel ischemic infarct. Vascular calcification at the base of the brain. Cerebral ventricles: No significant ventriculomegaly. Paranasal sinuses: Visualized sinuses are unremarkable. No fluid levels. Mastoid air cells: Visualized mastoid air cells are well aerated. Bones/joints: Bone windows of the skull show no acute abnormality. Soft tissues: Unremarkable. CT/CT head wo con* [id number] IMPRESSION: 1. Atrophic or involutional change for age and moderate chronic small-vessel disease change bilaterally. 2. No acute intracranial abnormality.
[2023-12-02 15:23] LABS: Ammonia 12 umol/L (16-60)
--- NOTE | 2023-12-02 16:22 | P.PN_ITS ---
Subjective 2 Subjective: No complaints. No N/V with NG on gravity drainage with little output from gravity drainage Vitals/I&O/Wt Last Vital Signs Temp 97.7 F 12/02/23 14:00 Pulse 55 L 12/02/23 16:00 Resp 17 12/02/23 16:00 BP 94/53 12/02/23 16:00 Pulse Ox 94 12/02/23 16:00 O2 Del Method Room Air 12/02/23 14:47 O2 Flow Rate 5 12/02/23 05:23 12/02/23 12/02/23 12/02/23 06:59 14:59 22:59 Intake Total 651.842 / 3704.192 276.753 / 276.753 Output Total 200 / 3675 Balance 451.842 / 29.192 276.753 / 276.753 Weight last 48 hrs Weight 214 lb 15.211 oz Weight 214 lb 15.211 oz Weight 219 lb 5.759 oz Weight 216 lb 0.848 oz Physical Exam 2 Narrative: Patient is a well developed well nourished and in NAD and is afebrile with vitals stable and is answering questions appropriately with a normal affect and is alert and oriented x3 HEENT: normocephalic with normal external ears and nonicteric, oral mucosa moist and dentition normal for age, trachea midline with no large masses visualized Heart: RRR, no gallops murmurs or rubs, normal PMI with no thrills Lungs: normal excursions, no loud audible wheezing, no subcutaneous emphysema Abdomen: nondistended, no gross hepatosplenomegaly, no masses, no rigidity or rebound, no loud borborygmi Neuro: MATHEW, grossly normal sensation Musculoskeletal: good muscle tone, no fasciculations, Skin: pink warm and dry with no rashes or ecchymosis Vascular: good radial pulses, no ulceration, less than 2 second capillary refill in hand : deferred Urinary Catheter Management: Pollard: Cath Placed During This Visit: yes Reason for Continuing Indwelling Catheter: Accurate Measurement of Urinary Output in Critically Ill Patients Urinary Catheter Date of Insertion: 11/29/23 Urinary Catheter Time of Insertion: 08:55 Data 12/02/23 03:17 12/02/23 03:17 Micro: Microbiology 11/29/23 08:47 Urine Culture - Final Urine,Clean Catch A&P Assessment and plan (1) Aspiration pneumonia: CT scan shows no complete obstruction of stomach. Patient with chronic N/V at home and may be due to motility problems and not stricture/stenosis at gastric outlet. said that he has been seen by GI in [place] for years and he has been treated with reglan with no effect. She feels a drug called viktoria pen capsule helps him but they have had problems of insurance paying for this so he is only taking half the does. he normally takes. Attestations 2 Medical Necessity Statement*: [place] with acute renal failure and heart failure requiring dialysis. Coding Level of Care Code 64610 Diagnoses Aspiration pneumonia J69.0
[2023-12-02 17:15] LABS: Glucose Point of Care 163 mg/dL (70-110)
[2023-12-02 18:48] LABS: Partial Thromboplastin Time > 250.0 SECONDS (23.9-36.7)
[2023-12-02 20:00] LABS: Glucose Point of Care 204 mg/dL (70-110)
--- NOTE | 2023-12-02 20:00 | PC.NURSE ---
Alterred Mental Status Upon initial assessment of patient, patient very lethargic, arousable to voice only and needing consistent stimuli to stay awake to answer questions. Patient only alert to self, remaining silent when asked additional orientation questions. When asked to squeeze hands, patient complied with the left hand being weaker than the right. When asked to move lower extremities, no movement made by patient. Pupils equal, reactive to light. Dr. Plata notified of increased lethargy and orientation to self only, order received for stat ABG.
[2023-12-02 20:12] LABS: ABG PCO2 35.9 mmHg (35-45); ABG PH Result 7.37 (7.35-7.45); Alveolar-Arterial Oxygen Gradi 5.7 mmHg (5-10); Arterial Blood Gas Hematocrit 31.2 % (42-52); Base Excess ABG -3.9 mmol/L (-2.0-2.0); Blood Gas Allen Test Pos; Blood Gas Operator Identificat JB; Blood Gas Sample Site Brachial, right; Blood Gas Sample Type Arterial; Carboxyhemoglobin 1.3 %THgb (0.4-20.1); HCO3 ABG 20.8 mmol/L (22-26); HGB O2 Sat 90.7 % (95-100); Ionized Calcium Level - ABG 1.2 mmol/L (1.1-1.4); Methemoglobin 0.5 % (0.4-1.5); Oxygen Device NC; Oxygen Saturation ABG 92.4; PO2 ABG 61.1 mmHg (80.0-100.0); Potassium Level - ABG 3.8 mmol/L (3.5-5.0); Total Hemoglobin 10.2 g/dL (14-18)
[2023-12-02 23:28] LABS: Partial Thromboplastin Time 56.6 SECONDS (23.9-36.7)
[2023-12-03] VITALS (50 sets, daily range): BP systolic 126–167; BP diastolic 53–99; PULSE 48–111; RESP 15–32; TEMP 36.3–36.7; O2SAT 89–96; BMI 29.7
[2023-12-03] MEDS: linezolid premix 600 MG/300 ML PREMIX 300 MG IV
--- NOTE | 2023-12-03 00:21 | PC.NURSE ---
Patient's heparin drip was running at 9.5 units/kg/hr, was paused my dayshift nurse at 1900 per PTT of >250. The PTT was redrawn 4 hours later with a result of 56.6, Dr. Plata was notified, I was given telephone orders to restart heparin drip at 7 units/kg/hr
[2023-12-03] MEDS: albumin 25 G/100 ML BAG 60 G IV ×3 (04:02→20:30)
[2023-12-03 04:48] LABS: INR 4.82 (0.8-1.2)
[2023-12-03 04:55] LABS: Basophils % 0.2 %; Eosinophils % 0.1 %; Hematocrit 30.9 % (37-53); Lymphocytes # 1.2 10^3/uL (0.8-4.8); Lymphocytes % 11.1 %; Mean Corpuscular HGB Conc 31.4 g/dL (30-55); Mean Corpuscular Volume 92.2 fl (82-101); Mean Platelet Volume 12.4 fL (7.4-10.4); Monocytes # 0.5 10^3/uL (0.2-0.9); Monocytes % 4.3 %; Neutrophils # 8.63 10^3/uL (1.8-7.7); Neutrophils % 82.9 %; Nucleated Red Blood Cells % 0 %; Platelet Count 137 10^3/cmm (157-399); Red Blood Count 3.35 10^6/uL (3.85-5.65); Red Cell Distribution Width 14.7 % (12.1-15.1); White Blood Count 10.42 10^3/uL (3.29-11.43)
[2023-12-03 04:57] LABS: Lactate (Lactic Acid level) 3.4 mmol/L (0.5-2.2)
[2023-12-03 05:10] LABS: Alanine Aminotransferase 112 U/L (0-41); Albumin Level 3.4 g/dL (3.5-5.2); Alkaline Phosphatase 960 U/L (40-130); Aspartate Amino Transferase 225 U/L (0-40); Blood Urea Nitrogen 34 mg/dL (8-23); Calcium 9.5 mg/dL (8.5-10.5); Carbon Dioxide 18 mmol/L (22-29); Chloride 90 mmol/L (98-107); Creatinine Clr Calc Pharmacy 25.0871; Globulin 2.6 g/dL (1.3-4.6); Glucose 227 mg/dL (65-115); Magnesium 1.8 mg/dL (1.7-2.3); Osmolality Calculated 287 mOsm/kg (285-295); Sodium 131 mmol/L (136-145); Total Bilirubin 1.5 mg/dL (0.15-1.2)
[2023-12-03 05:11] LABS: Anion Gap 27.5 (5-19); Potassium 4.5 mmol/L (3.5-5.1)
[2023-12-03 05:15] LABS: NT Pro B Type Natriuretic Pept 20008 pg/mL (0-125)
[2023-12-03 05:19] LABS: Procalcitonin 0.61 ng/mL (0-0.5)
[2023-12-03 05:31] LABS: C Reactive Protein 119.3 mg/L (0.0-4.9); Creatine Phosphokinase 57 U/L (39-308)
--- NOTE | 2023-12-03 05:50 | P.PN_ITS ---
Subjective 2 Subjective: on Room air Medications: Reviewed: Yes Vitals/I&O/Wt Last Vital Signs Temp 98.0 F 12/03/23 04:00 Pulse 49 L 12/03/23 05:47 Resp 16 12/03/23 04:00 BP 158/66 12/03/23 04:00 Pulse Ox 91 12/03/23 04:00 O2 Del Method Room Air 12/03/23 04:00 O2 Flow Rate 5 12/02/23 05:23 12/02/23 12/02/23 12/03/23 14:59 22:59 06:59 Intake Total 276.753 / 276.753 945.275 / 1222.028 300 / 1522.028 Output Total 3850 / 3850 75 / 3925 Balance 276.753 / 276.753 -2904.725 / -2627.972 225 / -2402.972 Weight last 48 hrs Weight 99.5 kg Weight 95.7 kg Weight 97.5 kg Weight 97.5 kg Physical Exam 2 Narrative: lethargic +NGT S1 S2 RRR per report lUNGS CLEAR PER REPORT + EDEMA Urinary Catheter Management: Pollard: Cath Placed During This Visit: yes Reason for Continuing Indwelling Catheter: Accurate Measurement of Urinary Output in Critically Ill Patients Urinary Catheter Date of Insertion: 11/29/23 Urinary Catheter Time of Insertion: 08:55 Data 12/03/23 04:10 12/03/23 04:10 Micro: Microbiology 11/29/23 08:47 Urine Culture - Final Urine,Clean Catch A&P Assessment and plan (1) Acute renal failure superimposed on stage 3 chronic kidney disease: Qualifiers: Acute renal failure type: unspecified Chronic kidney disease stage 3 subtype: stage 3a (GFR 45-59) Qualified Code(s): N17.9 - Acute kidney failure, unspecified; N18.31 - Chronic kidney disease, stage 3a Plan 1. Acute on chronic kidney disease stage III: Baseline creatinine is in the 2 range patient now presented with JIA with a creatinine of 7.3 associated with metabolic acidosis and hyperkalemia and volume overload. His current JIA most likely ATN in the setting of acute infection/UTI, and possible prerenal. -s/p t temporary HD catheter placement and hD x 2 sessions , . remains oliguric , hd later today vs Am -Avoid nephrotoxins and IV contrast studies. 2. Metabolic acidosis: s/p bicarbonate drip, s/p HD monitor 3. Pyelonephritis, on antibiotics 4. ? gastric outlet obstruction on CT, patient has NGT and general surgery following , 5. Elevated BNP 6. CHF Patient evaluated using audiovisual cart. Time spent 20 minutes. Attestations 2 Medical Necessity Statement*: per [facility] Coding Level of Care Code Acute Code for Chg Fwd Diagnoses Acute renal failure superimposed on stage 3a chronic kidney disease, unspecified acute renal failure type N17.9; N18.31 Acute renal failure type: unspecified Chronic kidney disease stage 3 subtype: stage 3a (GFR 45-59)
[2023-12-03] MEDS: morphine 4 mg/mL SDV 1 mL 1 MG IVP (06:12)
[2023-12-03 06:42] LABS: Partial Thromboplastin Time 72.6 SECONDS (23.9-36.7)
--- NOTE | 2023-12-03 07:00 | XR_ITS ---
WS: [id number] PORTABLE CHEST HISTORY: sob COMPARISON: 11/30/2023 Interval placement of a right-sided dialysis catheter. Tip in the region of the distal SVC. Similar t o the prior study. Pacer pad noted over the LEFT thorax. There is a left-sided PICC line extending into the RIGHT atrium. This PICC line needs to be retracted 4 cm and reimaged. PICC line is in similar position as compared to 11/30/2023 at 11/30/2023. Nasogastr ic tube has been removed since the prior study. Heterogeneous hazy appearance of both lungs. Suspect very tiny LEFT pleural effusion. No pneumothorax . Cardiac size: Normal. Mediastinum/Aorta: Mild atherosclerosis aorta. Osteopenia. IMPRESSION: 1. No interval change in appearance of the lungs since the prior study. 2. Left-sided PICC line tip remains deep within the atrium and needs to be retracted 4 to 5 cm. 3. RIGHT dialysis catheter remains unchanged in position. 4. Mild hazy attenuation throughout both lungs probably related to edema. No dense pneumonia.
--- NOTE | 2023-12-03 08:27 | US_ITS ---
WS: [id number] RIGHT UPPER QUADRANT ULTRASOUND HISTORY: liver and gallbladder COMPARISON: CT abdomen 12/01/2023 Liver: 16.0 cm in length. Normal size liver and echogenicity. No bile duct dilatation or mass. Portal Vein: Normal hepatopetal flow with monophasic waveform. Gallbladder: Prior cholecystectomy. CBD: 0.7 cm Pancreas: Not visualized. Right kidney: 8.3 cm in length. Poorly visualized kidney. The kidney is not visualized in its entiret y. Kidney is low normal size on recent CT with mild cortical thinning. No obstruction. Aorta and IVC: Not visualized. No ascites. Very small RIGHT pleural effusion. IMPRESSION: 1. Prior cholecystectomy. 2. Low normal size RIGHT kidney with cortical thinning. 3. Very small RIGHT pleural effusion.
[2023-12-03 08:46] LABS: Glucose Point of Care 260 mg/dL (70-110)
[2023-12-03] MEDS: meropenem 500 MG in sodium chloride 0.9% (plus) 50 ML 100 MG IV (09:16)
[2023-12-03] MEDS: insulin lispro 100 unit/1 mL SUBCUT ×4 (09:19→20:52)
[2023-12-03 09:58] LABS: Troponin T (5th) Once 481 ng/L (0-15)
[2023-12-03 11:11] LABS: Gamma Glutamyl Transferase 372 U/L (8-61); Lipase 5 U/L (13-60)
[2023-12-03 11:21] LABS: Ammonia 75 umol/L (16-60)
--- NOTE | 2023-12-03 11:56 | PC.SLP ---
Pt not able to participate in assessmentat this time due to decreased alertness.
--- NOTE | 2023-12-03 12:25 | P.PN_ITS ---
Subjective 2 Subjective: - Patient was seen this morning -According to nursing staff he was able to wake up, but fell asleep -This morning he remains obtunded, he do es awaken to sternal rub, but falls back asleep does not follow commands, his head CT yesterday was within normal limits, ammonia levels were within normal limits, did receive dialysis yesterday remains afebrile overnight, normotensive, all his blood cultures have been unremarkable ? Patient was reexamined is at bedside, he does arouse, say a couple words that his legs are hurting him, but falls back asleep, pupils equal round reactive to light, does track, does withdraw from pain, does awaken to sternal rub, but falls back asleep, discussed with his about his delirium, I am going to repeat his ammonia levels, blood sugars have been hyperglycemic ? She has a leukocytosis, and inflammatory markers are trending downwards, ? We discussed his elevated troponins, will continue to monitor have held his heparin drip given his INR of 4 ? Also ordered abdominal ultrasound, -Discussed with potentially meropen em could be playing a role or pain medications. Meropenem, stop Zyvox and de-escalate to Rocephin -Use pain medication sparingly ? Will continue to monitor his mentation closely, discussed with and detail, she voiced understanding, all questions answered, ? Ammonia level 75 will give 1 dose of lactulose rectally Vitals/I&O/Wt Last Vital Signs Temp 97.7 F 12/03/23 10:00 Pulse 70 12/03/23 10:00 Resp 32 H 12/03/23 10:00 BP 159/66 12/03/23 10:00 Pulse Ox 91 12/03/23 10:00 O2 Del Method Room Air 12/03/23 10:00 O2 Flow Rate 5 12/02/23 05:23 12/02/23 12/03/23 12/03/23 22:59 06:59 14:59 Intake Total 945.275 / 1222.028 300 / 1522.028 150 / 150 Output Total 3850 / 3850 75 / 3925 Balance -2904.725 / -2627.972 225 / -2402.972 150 / 150 Weight last 48 hrs Weight 99.5 kg Weight 95.7 kg Weight 97.5 kg Weight 97.5 kg Physical Exam 2 Const: COMMON NORMALS: no acute distress EXAM LIMITATIONS: altered mental status ORIENTATION/CONSCIOUSNESS: Yes awake and Yes patient obtunded; not oriented to person, not oriented to place and not oriented to time Neck/C-Spine: COMMON NORMALS: no JVD Resp: COMMON NORMALS: normal respiratory effort, No retractions, No use of accessory muscles and clear to auscultation bilaterally AUSCULTATION: clear to auscultation bilaterally Cardio: COMMON NORMALS: no JVD, regular rate, regular rhythm, S1 normal heart sound present and S2 normal heart sound present RATE: regular rate RHYTHM: regular rhythm HEART SOUNDS: S1 normal heart sound present and S2 normal heart sound present GI: COMMON NORMALS: Normal to inspection, nondistended, normoactive bowel sounds present, Soft to palpation and non-tender PALPATION: Yes Soft to palpation Extremity: COMMON NORMALS: no pedal edema Neuro: SENSORIUM/ORIENTATION: No oriented to person, No oriented to place and No oriented to time Urinary Catheter Management: Pollard: Cath Placed During This Visit: yes Reason for Continuing Indwelling Catheter: Accurate Measurement of Urinary Output in Critically Ill Patients Urinary Catheter Date of Insertion: 11/29/23 Urinary Catheter Time of Insertion: 08:55 Data 12/03/23 04:10 12/03/23 04:10 Micro: Microbiology 11/29/23 08:47 Urine Culture - Final Urine,Clean Catch A&P Assessment and plan (1) Pyelonephritis: (2) UTI (urinary tract infection): (3) Acute renal failure superimposed on stage 3 chronic kidney disease: Qualifiers: Acute renal failure type: unspecified Chronic kidney disease stage 3 subtype: stage 3a (GFR 45-59) Qualified Code(s): N17.9 - Acute kidney failure, unspecified; N18.31 - Chronic kidney disease, stage 3a (4) Hyperkalemia: (5) NSTEMI (non-ST elevated myocardial infarction): (6) Acute exacerbation of CHF (congestive heart failure): (7) Fluid overload: (8) Hypomagnesemia: (9) Anasarca: (10) Wall motion abnormality of inferior wall of left ventricle: (11) Bradycardia: (12) Gastric outlet obstruction: (13) Acute respiratory failure: (14) Aspiration pneumonia: (15) Hyperammonemia: (16) Acute liver failure: Plan Acute encephalopathy -Etiology -Could be from meropenem ? Could be from hyperammonemia, ?could be ICU delirium ? Monitor mentation closely ? NIH stroke scale, neurochecks, aspiration precautions, ? Repeat head CT within normal limits Acute hypoxic respiratory failure ? Multifactorial ? From fluid overload, diastolic CHF, ? Has received dialysis yesterday ?from aspiration pneumonia, Aspiration pneumonia, aspiration pneumonitis ? IV antibiotics Acute pyelonephritis, with right CVA tenderness, UTI -Urine culture within normal limits ? Blood cultures within normal limits, ? De-escalate to Rocephin -Follow urine cultures, blood cultures Acute renal failure on chronic kidney disease -Creatinine up to 3.1 ? Given elevated BNP, bilateral extreme edema, shortness of breath, anasarca w ?Status post temporary dialysis catheter placement ? Receiving inpatient dialysis Hyperkalemia, resolved ? Status post calcium gluconate, insulin, D50, sodium bicarb, Kayexalate in the emergency room -Likely secondary renal failure ? Recheck serum potassium level ? Serial EKGs, serial troponins, telemetry monitoring Metabolic acidosis, likely secondary renal failure Acute systolic and diastolic CHF exacerbation ? Secondary to fluid overload, anasarca, lower extreme edema, ? Creatinine 3.4, troponin 390, BNP over 18,000 ?Did not respond to Lasix ? Receiving inpatient dialysis NSTEMI, with wall motion abnormalities on echo ? No chest pain complaints, -EKG no acute ST-T wave changes ? Continue Plavix, aspirin, heparin drip ? Cardiac echo CONCLUSIONS LV systolic function is mildly reduced with EF of 45 to 50%. Basal inferoseptal and anteroseptal peoples of moderate to severe hypokinesis. Mild mitral regurgitation Trace aortic regurgitation Mild tricuspid regurgitation Mild pulmonic regurgitation Ascending aorta is dilated with diameter of 3.98 cm. Compared to prior echocardiogram from 2017, LV systolic function has decreased ? Serial EKGs, serial troponins, telemetry monitoring -Cardiology consulted -Troponin up to 481 ? Will repeat troponin series ? As INR is 4.82 will hold heparin drip ? Inpatient stress testing versus angiogram, based on clinical progress Bradycardia, A-fib with slow ventricular response, -Atropine as needed -Repeat blood work, EKGs, chest x-ray, KUB ? Status post dopamine, wean off Anasarca as above Sepsis secondary to UTI, pyelonephritis given leukocytosis, elevated inflammatory markers, Gastric outlet obstruction 1. Marked distention of the stomach with fluid. There is a change in caliber in the duodenal C-loop. Spasm versus gastric outlet obstruction or obstructing neoplasm within the differential. -Keep n.p.o.,monitor NG tube output ? Cannot perform EGD as anesthesia has concerns about sedation CT/CT abdomen pelvis wo con [id number] IMPRESSION: 1. Exam compared with 2 days ago. 2. There is oral contrast given, and there is no evidence of a complete gastric outlet obstruction. There is distal gastric wall thickening. Follow with GI. Consider need for EGD. 3. Progressive diffuse 3rd spacing of fluid with increasing bilateral mid to lower lung atelectasis or pneumonia with effusions, diffuse anasarca, and minimal ascites. 4. The colon is rather fecal filled. No small bowel obstruction, abscess or free air. 5. Numerous other chronic findings again seen. -NG tube removed, transition to clears once mentation improves, speech therapy eval -General surgery consulted Acute liver failure -With elevated LFTs, elevated GGT, elevated INR, elevated bili, albumin 3.4 -Etiology -Could be hepatorenal syndrome -Could be potentially from meropenem, or Zyvox -Will order ultrasound liver -Will order acute hep panel Full code Heparin for DVT prophylaxis - Patient was seen this morning -According to nursing staff he was able to wake up, but fell asleep -This morning he remains obtunded, he does awaken to sternal rub, but falls back asleep does not follow commands, his head CT yesterday was within normal limits, ammonia levels were within normal limits, did receive dialysis yesterday remains afebrile overnight, normotensive, all his blood cultures have been unremarkable ? Patient was reexamined is at bedside, he does arouse, say a couple words that his legs are hurting him, but falls back asleep, pupils equal round reactive to light, does track, does withdraw from pain, does awaken to sternal rub, but falls back asleep, discussed with his about his delirium, I am going to repeat his ammonia levels, blood sugars have been hyperglycemic ? She has a leukocytosis, and inflammatory markers are trending downwards, ? We discussed his elevated troponins, will continue to monitor have held his heparin drip given his INR of 4 ? Also ordered abdominal ultrasound, -Discussed with potentially meropenem could be playing a role or pain medications. Meropenem, stop Zyvox and de-escalate to Rocephin -Use pain medication sparingly ? Will continue to monitor his mentation closely, discussed with and detail, she voiced understanding, all questions answered, ? Ammonia level 75 will give 1 dose of lactulose rectally Attestations 2 Medical Necessity Statement*: Patient requires hospitalization, for acute encephalopathy, acute respiratory failure, UTI, pyelonephritis, aspiration pneumonia, gastric outlet obstruction, NSTEMI, acute liver failure, acute renal failure Diagnoses Pyelonephritis N12 UTI (urinary tract infection) N39.0 Acute renal failure superimposed on stage 3a chronic kidney disease, unspecified acute renal failure type N17.9; N18.31 Acute renal failure type: unspecified Chronic kidney disease stage 3 subtype: stage 3a (GFR 45-59) Hyperkalemia E87.5 NSTEMI (non-ST elevated myocardial infarction) I21.4 Acute exacerbation of CHF (congestive heart failure) I50.9 Fluid overload E87.70 Hypomagnesemia E83.42 Anasarca R60.1 Wall motion abnormality of inferior wall of left ventricle R94.30 Bradycardia R00.1 Gastric outlet obstruction K31.1 Acute respiratory failure J96.00 Aspiration pneumonia J69.0 Hyperammonemia E72.20 Acute liver failure K72.00
[2023-12-03 12:34] LABS: Glucose Point of Care 245 mg/dL (70-110)
[2023-12-03] MEDS: lactulose oral liq 20 gm/30 mL UDC 200 GM PR (12:42)
--- NOTE | 2023-12-03 13:22 | ECG_ITS ---
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 Measurements Intervals [place] Rate: 108 P: 0 FL: 0 QRS: 70 QRSD: 141 T: -49 QT: 360 QTc: 484 Interpretive Statements Possible ATRIAL FLUTTER/TACHYCARDIA WITH RAPID VENTRICULAR RESPONSE INTRAVENTRICULAR CONDUCTION DELAY [130+ ms QRS DURATION] POSSIBLE INFERIOR MYOCARDIAL INFARCTION , OF INDETERMINATE AGE [30 ms Q WAVE IN II/aVF] Compared to ECG 11/30/2023 12:36:07 Sinus rhythm no longer present First degree AV block no longer present Myocardial infarct finding still present Electronically Signed On 12-03-2023 18:54:13 CDT by Shira Aguirre M.D. [id number]
[2023-12-03 14:33] LABS: Troponin(5th) Baseline 411 ng/L (0-15)
[2023-12-03 14:47] LABS: HIV 1 & 2 Antibody Non-Reactive (Non-Reactiv); HIV 1 & 2 Antigen Non-Reactive (Non-Reactiv)
[2023-12-03 15:57] LABS: Hepatitis A Antibody IgM Non-Reactive (Nonreactive); Hepatitis B Core IgM Non-Reactive (Nonreactive); Hepatitis B Surface Antigen Non-Reactive (Nonreactive); Hepatitis C Virus Antibody Non-Reactive (Nonreactive)
--- NOTE | 2023-12-03 15:58 | ECG_ITS ---
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 Measurements Intervals [place] Rate: 107 P: 9 IL: 151 QRS: 51 QRSD: 104 T: -45 QT: 354 QTc: 474 Interpretive Statements SINUS TACHYCARDIA SEPTAL MYOCARDIAL INFARCTION , OF INDETERMINATE AGE [40+ ms Q WAVE IN V1/V2] MODERATE T-WAVE ABNORMALITY, CONSIDER INFERIOR ISCHEMIA [-0.1+ mV T-WAVE IN II/aVF] Compared to ECG 12/03/2023 13:22:14 T-wave abnormality now present Possible ischemia now present Atrial flutter no longer present Intraventricular conduction delay no longer present Myocardial infarct finding still present Electronically Signed On 12-03-2023 18:58:24 CDT by Shira Aguirre M.D. [id number]
[2023-12-03 16:34] LABS: Partial Thromboplastin Time 60.9 SECONDS (23.9-36.7)
[2023-12-03 16:48] LABS: Troponin 5 2HR Delta -4.8 ABS# (0-10)
[2023-12-03 16:50] LABS: Troponin 5 2HR 406.2 ng/L (0-15)
--- NOTE | 2023-12-03 17:02 | P.PN_ITS ---
Subjective 2 Subjective: No complaints Vitals/I&O/Wt Last Vital Signs Temp 97.7 F 12/03/23 10:00 Pulse 105 H 12/03/23 14:00 Resp 27 H 12/03/23 14:00 BP 131/72 12/03/23 14:00 Pulse Ox 95 12/03/23 14:00 O2 Del Method Room Air 12/03/23 14:00 O2 Flow Rate 5 12/02/23 05:23 12/03/23 12/03/23 12/03/23 06:59 14:59 22:59 Intake Total 300 / 1522.028 250 / 250 Output Total 75 / 3925 Balance 225 / -2402.972 250 / 250 Weight last 48 hrs Weight 219 lb 5.759 oz Weight 210 lb 15.718 oz Weight 214 lb 15.211 oz Physical Exam 2 Narrative: Patient is a well developed well nourished and in NAD and is afebrile with vitals stable and is answering questions appropriately with a normal affect and is alert and oriented x3 HEENT: normocephalic with normal external ears and nonicteric, oral mucosa moist and dentition normal for age, trachea midline with no large masses visualized Heart: RRR, no gallops murmurs or rubs, normal PMI with no thrills Lungs: normal excursions, no loud audible wheezing, no subcutaneous emphysema Abdomen: nondistended, no gross hepatosplenomegaly, no masses, no rigidity or rebound, no loud borborygmi Neuro: nonfocal, MATHEW, grossly normal sensation Musculoskeletal: good muscle tone, no fasciculations Skin: pink warm and dry with no rashes or ecchymosis Vascular: good radial pulses, no ulceration, less than 2 second capillary refill in hand : deferred Urinary Catheter Management: Pollard: Cath Placed During This Visit: yes Reason for Continuing Indwelling Catheter: Accurate Measurement of Urinary Output in Critically Ill Patients Urinary Catheter Date of Insertion: 11/29/23 Urinary Catheter Time of Insertion: 08:55 Data 12/03/23 04:10 12/03/23 04:10 A&P Assessment and plan (1) Gastric outlet obstruction: CT does not show high grade gastric outlet obstruction. Patient had been treated with reglan in past for gastric motility problem by GI in [facility]. He likely will make an appointment with GI doctor as outpatient. Patient creatinine coming down on dialysis and WBC normal. Will stop following patient and please re consult general surgery in future if develops concerns on patient problems. Attestations 2 Medical Necessity Statement*: Patient with acute renal failure in need of dialysis and urosepsis. Coding Level of Care Code 35467 Diagnoses Gastric outlet obstruction K31.1
[2023-12-03 17:32] LABS: Glucose Point of Care 243 mg/dL (70-110)
--- NOTE | 2023-12-03 17:47 | PC.SLP ---
Unable to assess. Pt not able to maintain alertness.
--- NOTE | 2023-12-03 18:00 | ECG_ITS ---
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 Measurements Intervals [place] Rate: 106 P: 32 ND: 188 QRS: 58 QRSD: 105 T: -15 QT: 366 QTc: 486 Interpretive Statements SINUS TACHYCARDIA WITH OCCASIONAL SUPRAVENTRICULAR PREMATURE COMPLEXES LOW QRS VOLTAGE IN PRECORDIAL LEADS [QRS DEFLECTION < 1.0 mV IN CHEST LEADS] ANTEROSEPTAL MYOCARDIAL INFARCTION , PROBABLY OLD [40+ ms Q WAVE IN V1-V4] Compared to ECG 12/03/2023 15:58:12 Low QRS voltage now present T-wave abnormality no longer present Possible ischemia no longer present Myocardial infarct finding still present Electronically Signed On 12-03-2023 18:58:43 CDT by Shira Aguirre M.D. [id number]
--- NOTE | 2023-12-03 18:07 | P.PN_ITS ---
Subjective 2 Subjective: The patient is still very drowsy and lethargic. The vital signs remained stable. Telemetry shows sinus rhythm. Very oliguric with a scanty dark urine. No chest pain or shortness of breath. No fever or chills. Medications: Medication Review Details: Current Medications Acetaminophen (Acetaminophen 325 Mg Tablet) 650 mg PO QID PRN PRN Reason: Pain Amitriptyline HCl (Amitriptyline 25 Mg Tablet) 25 mg PO DAILY [facility] Last Admin: 12/03/23 09:21 Dose: Not Given Aspirin (Aspirin 81 Mg Ec Tablet) 81 mg PO DAILY [facility] Last Admin: 12/03/23 09:21 Dose: Not Given Atorvastatin Calcium (Atorvastatin 40 Mg Tablet) 40 mg PO DAILY [facility] Last Admin: 12/03/23 09:21 Dose: Not Given Atropine Sulfate (Atropine 0.1 Mg/Ml Syr 10 Ml) 0.5 mg IVP Q5MIN PRN PRN Reason: for hr<60, and hypotension, call MD before use Clopidogrel Bisulfate (Clopidogrel 75 Mg Tablet) 75 mg PO DAILY [facility] Last Admin: 12/03/23 09:21 Dose: Not Given Heparin Sodium (Porcine) (Heparin 5,000 Unit/Ml Inj 1 Ml) 0 unit IV PRN PRN; Protocol PRN Reason: Heparin weight-base protocol Dextrose (D5w) 500 mls @ 0 mls/hr IV ONCE PRN; Protocol PRN Reason: Adult Acute Hypoglycemia Prot Dextrose (D10w) 125 mls @ 750 mls/hr IV PRN PRN; Protocol PRN Reason: Adult Acute Hypoglycemia Nursing Protocol Dextrose (D10w) 250 mls @ 1,000 mls/hr IV PRN PRN; Protocol PRN Reason: Adult Acute Hypoglycemia Nursing Protocol Albumin Human (Albumin) 25 g in 100 mls @ 60 mls/hr IV Q8H [facility] Last Infusion: 12/03/23 14:35 Dose: Infused Heparin Sodium/Sodium Chloride (Heparin Drip) 25,000 unit in 500 mls @ 0 mls/hr IV .Q0M [facility]; Protocol Last Titration: 12/03/23 00:02 Dose: 7.02 unit/kg/hr, 13.7 mls/hr Dopamine HCl/Dextrose (Intropin Drip) 400 mg in 250 mls @ 18.296 mls/hr IV CONT [facility]; Protocol Last Admin: 12/03/23 13:31 Dose: Not Given Sodium Chloride (Sodium Chloride 0.9%) 1,000 mls @ 0 mls/hr IV .Q0M PRN PRN Reason: hypotension or symptomatic Albumin Human (Albumin) 12.5 gm in 50 mls @ 60 mls/hr IV PRN PRN PRN Reason: Hypotension and/or symptomatic Sodium Chloride (Sodium Chloride 0.9%) 1,000 mls @ 0 mls/hr IV .Q0M PRN PRN Reason: hypotension or symptomatic Albumin Human (Albumin) 12.5 gm in 50 mls @ 60 mls/hr IV PRN PRN PRN Reason: Hypotension and/or symptomatic Sodium Chloride (Sodium Chloride 0.9%) 1,000 mls @ 0 mls/hr IV .Q0M PRN PRN Reason: hypotension or symptomatic Albumin Human (Albumin) 12.5 gm in 50 mls @ 60 mls/hr IV PRN PRN PRN Reason: Hypotension and/or symptomatic Ceftriaxone Sodium 1,000 mg/ (Sodium Chloride) 50 mls @ 100 mls/hr IV Q24H [facility]; Protocol Insulin Human Lispro (Insulin Lispro 100 Unit/1 Ml) 0 unit SUBCUT WM&BEDTIME [facility]; Protocol Last Admin: 12/03/23 17:34 Dose: 8 unit Metoclopramide HCl (Metoclopramide 5 Mg/Ml Sdv 2 Ml) 5 mg IVP Q6H PRN PRN Reason: NAUSEA AND VOMITING Morphine Sulfate (Morphine 4 Mg/Ml Sdv 1 Ml) 1 mg IVP Q4H PRN PRN Reason: SEVERE PAIN Last Admin: 12/03/23 06:12 Dose: 1 mg Naloxone HCl (Naloxone 0.4 Mg/Ml Sdv) 0.1 mg IVP Q2M PRN PRN Reason: OPIATERV Ondansetron HCl (Ondansetron 2 Mg/Ml Sdv 2 Ml) 4 mg IVP Q6H PRN PRN Reason: NAUSEA AND VOMITING Last Admin: 11/30/23 15:05 Dose: 4 mg Pantoprazole Sodium (Pantoprazole Dr 40 Mg Tablet) 40 mg PO BID [facility] Last Admin: 12/03/23 17:26 Dose: Not Given Vitals/I&O/Wt Last Vital Signs Temp 98.1 F 12/03/23 16:00 Pulse 108 H 12/03/23 17:00 Resp 23 H 12/03/23 17:00 BP 158/82 12/03/23 17:00 Pulse Ox 94 12/03/23 17:00 O2 Del Method Room Air 12/03/23 17:00 O2 Flow Rate 5 12/02/23 05:23 12/03/23 12/03/23 12/03/23 06:59 14:59 22:59 Intake Total 300 / 1522.028 250 / 250 0 / 250 Output Total 75 / 3925 1000 / 1000 Balance 225 / -2402.972 250 / 250 -1000 / -750 Weight last 48 hrs Weight 219 lb 5.759 oz Weight 210 lb 15.718 oz Weight 214 lb 15.211 oz Physical Exam 2 Narrative: GENERAL: The patient is very drowsy today. Seems to be moving all extremities HEENT: Minimal pallor. No icterus or lymphadenopathy.Oral cavity: There are no mucous membrane lesions. NECK: Trachea appears to be central. No masses noted. No JVD or thyromegaly appreciated. RESPIRATORY: Chest is symmetrical. No intercostals muscle retraction or any accessory muscle activation. There is no chest wall tenderness. Breath sounds are heard bilaterally. No rales or rhonchi heard. No evidence of any consolidation. BREASTS: Deferred. HEART: The heart sounds are normal. No S3 or S4. No significant murmurs. No pericardial rub ABDOMEN: Slightly distended. Bowel sounds are normally heard. Vague tenderness in epigastric area : Deferred. RECTAL: Deferred. LYMPHATIC: No lymphadenopathy noted in the neck. EXTREMITIES: 2-3+ edema of the lower extremities. Edema of the scrotum and penis is improving MUSCULOSKELETAL: No acute joint deformities or swelling SKIN: There are no significant rashes or ecchymosis NEUROPSYCHIATRIC: The patient is drowsy. No new neurological deficit Urinary Catheter Management: Pollard: Cath Placed During This Visit: yes Reason for Continuing Indwelling Catheter: Accurate Measurement of Urinary Output in Critically Ill Patients Urinary Catheter Date of Insertion: 11/29/23 Urinary Catheter Time of Insertion: 08:55 Data 12/03/23 04:10 12/03/23 04:10 Other Labs: Laboratory Last Values WBC 10.42 10^3/uL (3.29-11.43) 12/03/23 04:10 RBC 3.35 10^6/uL (3.85-5.65) L 12/03/23 04:10 Hgb 9.70 g/dL (11.27-16.99) L 12/03/23 04:10 Hct 30.9 % (37-53) L 12/03/23 04:10 MCV 92.2 fl (82-101) 12/03/23 04:10 MCH 29.0 pg (27-33) 12/03/23 04:10 MCHC 31.4 g/dL (30-55) 12/03/23 04:10 RDW 14.7 % (12.1-15.1) 12/03/23 04:10 Plt Count 137 10^3/cmm (157-399) L 12/03/23 04:10 MPV 12.4 fL (7.4-10.4) H 12/03/23 04:10 Neut % (Auto) 82.9 % 12/03/23 04:10 Lymph % (Auto) 11.1 % 12/03/23 04:10 [place] % (Auto) 4.3 % 12/03/23 04:10 Eos % (Auto) 0.1 % 12/03/23 04:10 Baso % (Auto) 0.2 % 12/03/23 04:10 Neut # (Auto) 8.63 10^3/uL (1.8-7.7) H 12/03/23 04:10 Lymph # (Auto) 1.2 10^3/uL (0.8-4.8) 12/03/23 04:10 [place] # (Auto) 0.5 10^3/uL (0.2-0.9) 12/03/23 04:10 Eos # (Auto) 0.0 10^3/uL (0.0-0.8) 12/03/23 04:10 Baso # (Auto) 0.0 10^3/uL (0.0-0.1) 12/03/23 04:10 Nucleated RBC % (auto) 0 % 12/03/23 04:10 Nucleated RBCs # 0.0 /100WBC 12/03/23 04:10 PT 47.00 SECONDS (12.1-14.9) H D 12/03/23 04:10 INR 4.82 (0.8-1.2) H 12/03/23 04:10 APTT 60.9 SECONDS (23.9-36.7) H 12/03/23 15:29 Specimen Type Arterial 12/02/23 19:58 Sample Site Brachial, right 12/02/23 19:58 ABG pH 7.37 (7.35-7.45) 12/02/23 19:58 ABG pCO2 35.9 mmHg (35-45) 12/02/23 19:58 ABG pO2 61.1 mmHg (80.0-100.0) L 12/02/23 19:58 ABG PO2/FiO2 Ratio 0 11/30/23 13:35 ABG HCO3 20.8 mmol/L (22-26) L 12/02/23 19:58 ABG O2 Saturation 92.4 12/02/23 19:58 ABG Base Excess -3.9 mmol/L (-2.0-2.0) L 12/02/23 19:58 Jose Carlos Test Pos 12/02/23 19:58 A-a O2 Gradient 5.7 mmHg (5-10) 12/02/23 19:58 Hematocrit 31.2 % (42-52) L 12/02/23 19:58 Hgb O2 Saturation 90.7 % (95-100) L 12/02/23 19:58 Carboxyhemoglobin 1.3 %THgb (0.4-20.1) 12/02/23 19:58 Methemoglobin 0.5 % (0.4-1.5) 12/02/23 19:58 Total Hemoglobin 10.2 g/dL (14-18) L 12/02/23 19:58 Sodium 135.0 mmol/L (131-143) 12/02/23 19:58 Potassium 3.8 mmol/L (3.5-5.0) 12/02/23 19:58 Glucose 210.0 mg/dL (70-115) H 12/02/23 19:58 Ionized Calcium 1.2 mmol/L (1.1-1.4) 12/02/23 19:58 O2 Delivery Device Nc 12/02/23 19:58 FiO2 21.0 % 11/30/23 13:35 Junior Mechanical Engineer ID [email or web address] 12/02/23 19:58 Sodium 131 mmol/L (136-145) L 12/03/23 04:10 Potassium 4.5 mmol/L (3.5-5.1) 12/03/23 04:10 Chloride 90 mmol/L (98-107) L 12/03/23 04:10 Carbon Dioxide 18 mmol/L (22-29) L 12/03/23 04:10 Anion Gap 27.5 (5-19) H 12/03/23 04:10 BUN 34 mg/dL (8-23) H 12/03/23 04:10 Creatinine 3.1 mg/dL (0.7-1.2) H 12/03/23 04:10 GFR Calculation Not Reportable 12/03/23 04:10 Glucose 227 mg/dL (65-115) H 12/03/23 04:10 POC Glucose 243 mg/dL (70-110) H 12/03/23 17:29 Estimat Average Glucose 163 11/29/23 08:17 Hemoglobin A1c 7.3 % (4.0-6.0) H 11/29/23 08:17 Calculated Osmolality 287 mOsm/kg (285-295) 12/03/23 04:10 Lactic Acid 1.6 mmol/L (0.5-2.2) 11/29/23 08:17 Lactate 3.4 mmol/L (0.5-2.2) H 12/03/23 04:10 Calcium 9.5 mg/dL (8.5-10.5) 12/03/23 04:10 Phosphorus 7.0 mg/dL (2.5-4.5) H 12/03/23 04:10 Magnesium 1.8 mg/dL (1.7-2.3) 12/03/23 04:10 Total Bilirubin 1.5 mg/dL (0.15-1.2) H 12/03/23 04:10 GGT 372 U/L (8-61) H 12/03/23 04:10 AST 225 U/L (0-40) H 12/03/23 04:10 ALT 112 U/L (0-41) H 12/03/23 04:10 Alkaline Phosphatase 960 U/L (40-130) H 12/03/23 04:10 Ammonia 75 umol/L (16-60) H 12/03/23 10:57 Creatine Kinase 57 U/L (39-308) 12/03/23 04:10 Troponin T 5th Gen ng/L 481 ng/L (0-15) H* 12/03/23 04:10 Troponin T Baseline 411 ng/L (0-15) H* 12/03/23 13:43 Troponin T 120 Minute 406.2 ng/L (0-15) H 12/03/23 15:29 Delta Troponin T -4.8 ABS# (0-10) L 12/03/23 15:29 Troponin T Hi Sens 6Hr 339.4 ng/L (0-15) H 11/30/23 18:45 Troponin T Hi Sens 6Hr Delta 3.4 ng/L (0-12) 11/30/23 18:45 C-Reactive Protein 119.3 mg/L (0.0-4.9) H 12/03/23 04:10 NT-Pro-B Natriuret Pep 29587 pg/mL (0-125) H 12/03/23 04:10 Total Protein 6.0 g/dL (6.6-8.7) L 12/03/23 04:10 Albumin 3.4 g/dL (3.5-5.2) L 12/03/23 04:10 Globulin 2.6 g/dL (1.3-4.6) 12/03/23 04:10 Triglycerides 207 mg/dL (0-150) H 11/29/23 08:17 Cholesterol 63 mg/dL (0-200) 11/29/23 08:17 LDL Cholesterol, Calc 9 mg/dL (50-129) L 11/29/23 08:17 HDL Cholesterol 13 mg/dL (60-100) L 11/29/23 08:17 LDL/HDL Ratio 0.69 RATIO (0.00-3.22) 11/29/23 08:17 Cholesterol/HDL Ratio 4.85 mg/dL (1.0-5.00) 11/29/23 08:17 Lipase 5 U/L (13-60) L 12/03/23 04:10 Procalcitonin 0.61 ng/mL (0-0.5) H 12/03/23 04:10 TSH 1.89 uIU/mL (0.27-4.20) 11/29/23 08:17 Urine Color Straw (Yellow) 11/29/23 08:47 Urine Appearance Cloudy (CLEAR) A 11/29/23 08:47 Urine pH 6.5 (5-7) 11/29/23 08:47 Ur Specific [place] 1.010 (1.005-1.030) 11/29/23 08:47 Urine Protein 1+ (Negative) H 11/29/23 08:47 Urine Glucose (UA) 2+ (Normal) H 11/29/23 08:47 Urine Ketones Negative (Negative) 11/29/23 08:47 Urine Blood 3+ (Negative) H 11/29/23 08:47 Urine Nitrate Negative (Negative) 11/29/23 08:47 Urine Bilirubin Neg (Negative) 11/29/23 08:47 Urine Urobilinogen Neg mg/dL (Negative) 11/29/23 08:47 Ur Leukocyte Esterase 2+ (Negative) H 11/29/23 08:47 Urine RBC 5-10 /hpf (0-2) H 11/29/23 08:47 Urine WBC Too numerous to cnt /hpf (0-5) H 11/29/23 08:47 Ur Squamous Epith Cells 0-4 /hpf (0-5) H 11/29/23 08:47 Amorphous Sediment Not Reportable 11/29/23 08:47 Urine Bacteria 3+ /hpf (NONE) H 11/29/23 08:47 Hepatitis A IgM Ab Non-reactive (Nonreactive) 12/03/23 13:43 Hep Bs Antigen Non-reactive (Nonreactive) 12/03/23 13:43 Hep Bs Antibody < 3.5 (11.5-1000) L 11/30/23 14:47 Hep B Core IgM Ab Non-reactive (Nonreactive) 12/03/23 13:43 Hepatitis C Antibody Non-reactive (Nonreactive) 12/03/23 13:43 HIV 1&2 Ab & HIV 1 Ag Non-reactive (Non-Reactiv) 12/03/23 13:43 HIV 1&2 Antibody Non-reactive (Non-Reactiv) 12/03/23 13:43 A&P Assessment and plan (1) Elevated troponin: Most likely this patient had a recent myocardial infarction. Apparently has no chest pain. Has features of acute diastolic heart failure. Heart failure seems to be fairly compensated. May continue on the current medication for the time being. (2) Hypotension: Currently somewhat hypertensive. May continue on the current medication. Try to optimize the antihypertensive medications. Qualifiers: Hypotension type: unspecified hypotension type Qualified Code(s): I95.9 - Hypotension, unspecified (3) Recent myocardial infarction of inferior wall: The EKG suggestive of inferior wall IN. We may consider doing a Myocardial perfusion imaging/cardiac catheterization to further evaluate the coronary status, once his medical condition is more stable (4) Acute diastolic heart failure: Recent IN, LV dysfunction, acute renal failure, etc. are contributing factors. Currently seems to be on room air with an oxygen saturation of 94%. (5) Acute renal failure superimposed on stage 3 chronic kidney disease: Hemodialysis as per the nephrology service Qualifiers: Acute renal failure type: unspecified Chronic kidney disease stage 3 subtype: stage 3a (GFR 45-59) Qualified Code(s): N17.9 - Acute kidney failure, unspecified; N18.31 - Chronic kidney disease, stage 3a (6) Pyelonephritis: The patient is on IV antibiotics. Currently he is afebrile. (7) Chronic calcific pancreatitis: Has been undergoing treatment in [place]. Details are not available. Plan Continue on the current management. Once her mental status improves, may consider further cardiac workup. Attestations 2 Medical Necessity Statement*: Deferred to the primary Coding Level of Care Code 39915 Diagnoses Elevated troponin R79.89 Hypotension, unspecified hypotension type I95.9 Hypotension type: unspecified hypotension type Recent myocardial infarction of inferior wall Acute diastolic heart failure I50.31 Acute renal failure superimposed on stage 3a chronic kidney disease, unspecified acute renal failure type N17.9; N18.31 Acute renal failure type: unspecified Chronic kidney disease stage 3 subtype: stage 3a (GFR 45-59) Pyelonephritis N12 Chronic calcific pancreatitis K86.1
[2023-12-03 20:30] LABS: Troponin 5 6HR Delta 2.5 ng/L (0-12)
[2023-12-03] MEDS: cefTRIAXone 1,000 MG in sodium chloride 0.9% (plus) 50 ML 100 MG IV (20:30)
[2023-12-03 20:35] LABS: Troponin 5 6HR 413.5 ng/L (0-15)
--- NOTE | 2023-12-03 23:40 | ECG_ITS ---
[facility] Test Date: 2023-12-03 Pat Name: Sotero Canchola(Kwabena) Department: Room: ICU11 Gender: Male Director Of Procurement: : 1950 Requested By: Marcela Plata Order Number: [id number] Mary Kate MD: Aaron Villalba M.D. Measurements Intervals Roma Rate: 83 P: 0 AR: 0 QRS: 37 QRSD: 137 T: -67 QT: 366 QTc: 432 Interpretive Statements ATRIAL FIBRILLATION WITH ABERRANT CONDUCTION OR VENTRICULAR PREMATURE COMPLEXES INTRAVENTRICULAR CONDUCTION DELAY [130+ ms QRS DURATION] Compared to ECG 12/03/2023 18:00:07 Ventricular premature complex(es) now present Aberrant conduction of supraventricular beat(s) now present Intraventricular conduction delay now present Sinus tachycardia no longer present Myocardial infarct finding no longer present Electronically Signed On 12-04-2023 21:36:37 CDT by Aaron Villalba M.D. [id number]
[2023-12-04] VITALS (40 sets, daily range): BP systolic 72–152; BP diastolic 38–83; PULSE 0–112; RESP 0–27; TEMP 36.2–36.8; O2SAT 79–97
--- NOTE | 2023-12-04 01:45 | PC.NURSE ---
Patient has had multiple extended pauses in heart rate and has been consistently irregular, neurological status has been unchanged. Contacted physician and made aware, EKG performed, no new orders received. Contacted and made aware of change in cardiac rhythm, verified full code status. stated she still wanted all life saving measures in the event of cardiac arrest.
[2023-12-04] MEDS: albumin 25 G/100 ML BAG 60 G IV ×2 (04:32→13:52)
[2023-12-04 05:46] LABS: Basophils % 0.2 %; Eosinophils % 0.4 %; Lymphocytes # 1.2 10^3/uL (0.8-4.8); Lymphocytes % 12.1 %; Mean Corpuscular HGB Conc 32.4 g/dL (30-55); Mean Corpuscular Hemoglobin 29.7 pg (27-33); Mean Corpuscular Volume 91.8 fl (82-101); Mean Platelet Volume 12.4 fL (7.4-10.4); Monocytes # 0.5 10^3/uL (0.2-0.9); Monocytes % 4.9 %; Neutrophils # 7.74 10^3/uL (1.8-7.7); Neutrophils % 78.5 %; Nucleated Red Blood Cells % 0 %; Platelet Count 129 10^3/cmm (157-399); Red Blood Count 3.16 10^6/uL (3.85-5.65); Red Cell Distribution Width 14.4 % (12.1-15.1); White Blood Count 9.85 10^3/uL (3.29-11.43)
[2023-12-04 06:00] LABS: Ammonia 30 umol/L (16-60)
[2023-12-04 06:12] LABS: C Reactive Protein 78.3 mg/L (0.0-4.9)
[2023-12-04 06:21] LABS: INR 5.31 (0.8-1.2)
[2023-12-04 06:37] LABS: Alanine Aminotransferase 99 U/L (0-41); Albumin Level 3.9 g/dL (3.5-5.2); Alkaline Phosphatase 740 U/L (40-130); Aspartate Amino Transferase 125 U/L (0-40); Blood Urea Nitrogen 56 mg/dL (8-23); Carbon Dioxide 14 mmol/L (22-29); Chloride 95 mmol/L (98-107); Creatinine Clr Calc Pharmacy 21.2437; Globulin 1.8 g/dL (1.3-4.6); Glucose 262 mg/dL (65-115); Magnesium 1.8 mg/dL (1.7-2.3); Osmolality Calculated 311 mOsm/kg (285-295); Phosphorus 6.3 mg/dL (2.5-4.5); Sodium 138 mmol/L (136-145); Total Bilirubin 1.1 mg/dL (0.15-1.2); Total Protein 5.7 g/dL (6.6-8.7)
[2023-12-04 06:42] LABS: Anion Gap 33.3 (5-19); Potassium 4.3 mmol/L (3.5-5.1)
[2023-12-04 06:43] LABS: Procalcitonin 0.56 ng/mL (0-0.5)
[2023-12-04 08:11] LABS: Glucose Point of Care 210 mg/dL (70-110)
[2023-12-04 08:20] LABS: Glucose Point of Care 290 mg/dL (70-110)
--- NOTE | 2023-12-04 08:22 | PM.PN ---
Subjective Subjective: Patient had an episode of nonsustained ventricular tachycardia. Also had a few pauses of up to 3 seconds. There is some improvement of his mental status and the urine output. But still seems very lethargic. No chest pain. No fever or chills. The blood pressure seems to be fairly stable. Medications: Medication Review Details: Current Medications Acetaminophen (Acetaminophen 325 Mg Tablet) 650 mg PO QID PRN PRN Reason: Pain Amitriptyline HCl (Amitriptyline 25 Mg Tablet) 25 mg PO DAILY [facility] Last Admin: 12/04/23 08:11 Dose: Not Given Aspirin (Aspirin 81 Mg Ec Tablet) 81 mg PO DAILY [facility] Last Admin: 12/04/23 08:11 Dose: Not Given Atorvastatin Calcium (Atorvastatin 40 Mg Tablet) 40 mg PO DAILY [facility] Last Admin: 12/04/23 08:12 Dose: Not Given Atropine Sulfate (Atropine 0.1 Mg/Ml Syr 10 Ml) 0.5 mg IVP Q5MIN PRN PRN Reason: for hr<60, and hypotension, call MD before use Clopidogrel Bisulfate (Clopidogrel 75 Mg Tablet) 75 mg PO DAILY [facility] Last Admin: 12/04/23 08:12 Dose: Not Given Heparin Sodium (Porcine) (Heparin 5,000 Unit/Ml Inj 1 Ml) 0 unit IV PRN PRN; Protocol PRN Reason: Heparin weight-base protocol Dextrose (D5w) 500 mls @ 0 mls/hr IV ONCE PRN; Protocol PRN Reason: Adult Acute Hypoglycemia Prot Dextrose (D10w) 125 mls @ 750 mls/hr IV PRN PRN; Protocol PRN Reason: Adult Acute Hypoglycemia Nursing Protocol Dextrose (D10w) 250 mls @ 1,000 mls/hr IV PRN PRN; Protocol PRN Reason: Adult Acute Hypoglycemia Nursing Protocol Albumin Human (Albumin) 25 g in 100 mls @ 60 mls/hr IV Q8H [facility] Last Infusion: 12/04/23 06:26 Dose: Infused Heparin Sodium/Sodium Chloride (Heparin Drip) 25,000 unit in 500 mls @ 0 mls/hr IV .Q0M [facility]; Protocol Last Titration: 12/03/23 00:02 Dose: 7.02 unit/kg/hr, 13.7 mls/hr Dopamine HCl/Dextrose (Intropin Drip) 400 mg in 250 mls @ 18.296 mls/hr IV CONT [facility]; Protocol Last Admin: 12/03/23 13:31 Dose: Not Given Sodium Chloride (Sodium Chloride 0.9%) 1,000 mls @ 0 mls/hr IV .Q0M PRN PRN Reason: hypotension or symptomatic Albumin Human (Albumin) 12.5 gm in 50 mls @ 60 mls/hr IV PRN PRN PRN Reason: Hypotension and/or symptomatic Sodium Chloride (Sodium Chloride 0.9%) 1,000 mls @ 0 mls/hr IV .Q0M PRN PRN Reason: hypotension or symptomatic Albumin Human (Albumin) 12.5 gm in 50 mls @ 60 mls/hr IV PRN PRN PRN Reason: Hypotension and/or symptomatic Sodium Chloride (Sodium Chloride 0.9%) 1,000 mls @ 0 mls/hr IV .Q0M PRN PRN Reason: hypotension or symptomatic Albumin Human (Albumin) 12.5 gm in 50 mls @ 60 mls/hr IV PRN PRN PRN Reason: Hypotension and/or symptomatic Ceftriaxone Sodium 1,000 mg/ (Sodium Chloride) 50 mls @ 100 mls/hr IV Q24H [facility]; Protocol Last Infusion: 12/03/23 23:31 Dose: Infused Insulin Human Lispro (Insulin Lispro 100 Unit/1 Ml) 0 unit SUBCUT WM&BEDTIME [facility]; Protocol Last Admin: 12/03/23 20:52 Dose: 6 unit Metoclopramide HCl (Metoclopramide 5 Mg/Ml Sdv 2 Ml) 5 mg IVP Q6H PRN PRN Reason: NAUSEA AND VOMITING Morphine Sulfate (Morphine 4 Mg/Ml Sdv 1 Ml) 1 mg IVP Q4H PRN PRN Reason: SEVERE PAIN Last Admin: 12/03/23 06:12 Dose: 1 mg Naloxone HCl (Naloxone 0.4 Mg/Ml Sdv) 0.1 mg IVP Q2M PRN PRN Reason: OPIATERV Ondansetron HCl (Ondansetron 2 Mg/Ml Sdv 2 Ml) 4 mg IVP Q6H PRN PRN Reason: NAUSEA AND VOMITING Last Admin: 11/30/23 15:05 Dose: 4 mg Pantoprazole Sodium (Pantoprazole Dr 40 Mg Tablet) 40 mg PO BID [facility] Last Admin: 12/04/23 08:12 Dose: Not Given Vitals/I&O/Wt Last Vital Signs Temp 97.7 F 12/04/23 06:00 Pulse 99 12/04/23 06:00 Resp 18 12/04/23 06:00 BP 135/72 12/04/23 06:00 Pulse Ox 94 12/04/23 06:00 O2 Del Method Room Air 12/03/23 19:30 O2 Flow Rate 5 12/02/23 05:23 12/03/23 12/04/23 12/04/23 22:59 06:59 14:59 Intake Total 0 / 250 250 / 500 0 / 0 Output Total 1800 / 1800 100 / 1900 Balance -1800 / -1550 150 / -1400 0 / 0 Weight last 48 hrs Weight 215 lb 15.718 oz Weight 219 lb 5.759 oz Weight 210 lb 15.718 oz Physical Exam Narrative: GENERAL: The patient is very drowsy today. Seems to be moving all extremities HEENT: Minimal pallor. No icterus or lymphadenopathy.Oral cavity: There are no mucous membrane lesions. NECK: Trachea appears to be central. No masses noted. No JVD or thyromegaly appreciated. RESPIRATORY: Chest is symmetrical. No intercostals muscle retraction or any accessory muscle activation. There is no chest wall tenderness. Breath sounds are heard bilaterally. No rales or rhonchi heard. No evidence of any consolidation. BREASTS: Deferred. HEART: The heart sounds are normal. No S3 or S4. No significant murmurs. No pericardial rub ABDOMEN: Slightly distended. Bowel sounds are normally heard. Vague tenderness in epigastric area : Deferred. RECTAL: Deferred. LYMPHATIC: No lymphadenopathy noted in the neck. EXTREMITIES: 2-3+ edema of the lower extremities. Edema of the scrotum and penis is improving MUSCULOSKELETAL: No acute joint deformities or swelling SKIN: There are no significant rashes or ecchymosis NEUROPSYCHIATRIC: The patient is drowsy. No new neurological deficit Urinary Catheter Management: Pollard: Cath Placed During This Visit: yes Reason for Continuing Indwelling Catheter: Accurate Measurement of Urinary Output in Critically Ill Patients Urinary Catheter Date of Insertion: 11/29/23 Urinary Catheter Time of Insertion: 08:55 Data 12/04/23 05:28 12/04/23 13:38 Other Labs: Laboratory Last Values WBC 9.85 10^3/uL (3.29-11.43) 12/04/23 05:28 RBC 3.16 10^6/uL (3.85-5.65) L 12/04/23 05:28 Hgb 9.40 g/dL (11.27-16.99) L 12/04/23 05:28 Hct 29.0 % (37-53) L 12/04/23 05:28 MCV 91.8 fl (82-101) 12/04/23 05:28 MCH 29.7 pg (27-33) 12/04/23 05:28 MCHC 32.4 g/dL (30-55) 12/04/23 05:28 RDW 14.4 % (12.1-15.1) 12/04/23 05:28 Plt Count 129 10^3/cmm (157-399) L 12/04/23 05:28 MPV 12.4 fL (7.4-10.4) H 12/04/23 05:28 Neut % (Auto) 78.5 % 12/04/23 05:28 Lymph % (Auto) 12.1 % 12/04/23 05:28 [place] % (Auto) 4.9 % 12/04/23 05:28 Eos % (Auto) 0.4 % 12/04/23 05:28 Baso % (Auto) 0.2 % 12/04/23 05:28 Neut # (Auto) 7.74 10^3/uL (1.8-7.7) H 12/04/23 05:28 Lymph # (Auto) 1.2 10^3/uL (0.8-4.8) 12/04/23 05:28 [place] # (Auto) 0.5 10^3/uL (0.2-0.9) 12/04/23 05:28 Eos # (Auto) 0.0 10^3/uL (0.0-0.8) 12/04/23 05:28 Baso # (Auto) 0.0 10^3/uL (0.0-0.1) 12/04/23 05:28 Nucleated RBC % (auto) 0 % 12/04/23 05:28 Nucleated RBCs # 0.0 /100WBC 12/04/23 05:28 PT 50.80 SECONDS (12.1-14.9) H 12/04/23 05:28 INR 5.31 (0.8-1.2) H* 12/04/23 05:28 APTT 60.9 SECONDS (23.9-36.7) H 12/03/23 15:29 Specimen Type Arterial 12/02/23 19:58 Sample Site Brachial, right 12/02/23 19:58 ABG pH 7.37 (7.35-7.45) 12/02/23 19:58 ABG pCO2 35.9 mmHg (35-45) 12/02/23 19:58 ABG pO2 61.1 mmHg (80.0-100.0) L 12/02/23 19:58 ABG PO2/FiO2 Ratio 0 11/30/23 13:35 ABG HCO3 20.8 mmol/L (22-26) L 12/02/23 19:58 ABG O2 Saturation 92.4 12/02/23 19:58 ABG Base Excess -3.9 mmol/L (-2.0-2.0) L 12/02/23 19:58 Jose Carlos Test Pos 12/02/23 19:58 A-a O2 Gradient 5.7 mmHg (5-10) 12/02/23 19:58 Hematocrit 31.2 % (42-52) L 12/02/23 19:58 Hgb O2 Saturation 90.7 % (95-100) L 12/02/23 19:58 Carboxyhemoglobin 1.3 %THgb (0.4-20.1) 12/02/23 19:58 Methemoglobin 0.5 % (0.4-1.5) 12/02/23 19:58 Total Hemoglobin 10.2 g/dL (14-18) L 12/02/23 19:58 Sodium 135.0 mmol/L (131-143) 12/02/23 19:58 Potassium 3.8 mmol/L (3.5-5.0) 12/02/23 19:58 Glucose 210.0 mg/dL (70-115) H 12/02/23 19:58 Ionized Calcium 1.2 mmol/L (1.1-1.4) 12/02/23 19:58 O2 Delivery Device Nc 12/02/23 19:58 FiO2 21.0 % 11/30/23 13:35 Marketing Administrator ID [email or web address] 12/02/23 19:58 Sodium 138 mmol/L (136-145) 12/04/23 05:28 Potassium 4.3 mmol/L (3.5-5.1) 12/04/23 05:28 Chloride 95 mmol/L (98-107) L 12/04/23 05:28 Carbon Dioxide 14 mmol/L (22-29) L 12/04/23 05:28 Anion Gap 33.3 (5-19) H 12/04/23 05:28 BUN 56 mg/dL (8-23) H 12/04/23 05:28 Creatinine 3.7 mg/dL (0.7-1.2) H 12/04/23 05:28 GFR Calculation Not Reportable 12/04/23 05:28 Glucose 262 mg/dL (65-115) H 12/04/23 05:28 POC Glucose 290 mg/dL (70-110) H 12/04/23 08:14 Estimat Average Glucose 163 11/29/23 08:17 Hemoglobin A1c 7.3 % (4.0-6.0) H 11/29/23 08:17 Calculated Osmolality 311 mOsm/kg (285-295) H 12/04/23 05:28 Lactic Acid 1.6 mmol/L (0.5-2.2) 11/29/23 08:17 Lactate 3.4 mmol/L (0.5-2.2) H 12/03/23 04:10 Calcium 9.0 mg/dL (8.5-10.5) 12/04/23 05:28 Phosphorus 6.3 mg/dL (2.5-4.5) H 12/04/23 05:28 Magnesium 1.8 mg/dL (1.7-2.3) 12/04/23 05:28 Total Bilirubin 1.1 mg/dL (0.15-1.2) 12/04/23 05:28 GGT 372 U/L (8-61) H 12/03/23 04:10 AST 125 U/L (0-40) H 12/04/23 05:28 ALT 99 U/L (0-41) H 12/04/23 05:28 Alkaline Phosphatase 740 U/L (40-130) H 12/04/23 05:28 Ammonia 30 umol/L (16-60) 12/04/23 05:28 Creatine Kinase 57 U/L (39-308) 12/03/23 04:10 Troponin T 5th Gen ng/L 481 ng/L (0-15) H* 12/03/23 04:10 Troponin T Baseline 411 ng/L (0-15) H* 12/03/23 13:43 Troponin T 120 Minute 406.2 ng/L (0-15) H 12/03/23 15:29 Delta Troponin T -4.8 ABS# (0-10) L 12/03/23 15:29 Troponin T Hi Sens 6Hr 413.5 ng/L (0-15) H 12/03/23 19:52 Troponin T Hi Sens 6Hr Delta 2.5 ng/L (0-12) 12/03/23 19:52 C-Reactive Protein 78.3 mg/L (0.0-4.9) H 12/04/23 05:28 NT-Pro-B Natriuret Pep 15377 pg/mL (0-125) H 12/03/23 04:10 Total Protein 5.7 g/dL (6.6-8.7) L 12/04/23 05:28 Albumin 3.9 g/dL (3.5-5.2) 12/04/23 05:28 Globulin 1.8 g/dL (1.3-4.6) 12/04/23 05:28 Triglycerides 207 mg/dL (0-150) H 11/29/23 08:17 Cholesterol 63 mg/dL (0-200) 11/29/23 08:17 LDL Cholesterol, Calc 9 mg/dL (50-129) L 11/29/23 08:17 HDL Cholesterol 13 mg/dL (60-100) L 11/29/23 08:17 LDL/HDL Ratio 0.69 RATIO (0.00-3.22) 11/29/23 08:17 Cholesterol/HDL Ratio 4.85 mg/dL (1.0-5.00) 11/29/23 08:17 Lipase 5 U/L (13-60) L 12/03/23 04:10 Procalcitonin 0.56 ng/mL (0-0.5) H 12/04/23 05:28 TSH 1.89 uIU/mL (0.27-4.20) 11/29/23 08:17 Urine Color Straw (Yellow) 11/29/23 08:47 Urine Appearance Cloudy (CLEAR) A 11/29/23 08:47 Urine pH 6.5 (5-7) 11/29/23 08:47 Ur Specific [place] 1.010 (1.005-1.030) 11/29/23 08:47 Urine Protein 1+ (Negative) H 11/29/23 08:47 Urine Glucose (UA) 2+ (Normal) H 11/29/23 08:47 Urine Ketones Negative (Negative) 11/29/23 08:47 Urine Blood 3+ (Negative) H 11/29/23 08:47 Urine Nitrate Negative (Negative) 11/29/23 08:47 Urine Bilirubin Neg (Negative) 11/29/23 08:47 Urine Urobilinogen Neg mg/dL (Negative) 11/29/23 08:47 Ur Leukocyte Esterase 2+ (Negative) H 11/29/23 08:47 Urine RBC 5-10 /hpf (0-2) H 11/29/23 08:47 Urine WBC Too numerous to cnt /hpf (0-5) H 11/29/23 08:47 Ur Squamous Epith Cells 0-4 /hpf (0-5) H 11/29/23 08:47 Amorphous Sediment Not Reportable 11/29/23 08:47 Urine Bacteria 3+ /hpf (NONE) H 11/29/23 08:47 Hepatitis A IgM Ab Non-reactive (Nonreactive) 12/03/23 13:43 Hep Bs Antigen Non-reactive (Nonreactive) 12/03/23 13:43 Hep Bs Antibody < 3.5 (11.5-1000) L 11/30/23 14:47 Hep B Core IgM Ab Non-reactive (Nonreactive) 12/03/23 13:43 Hepatitis C Antibody Non-reactive (Nonreactive) 12/03/23 13:43 HIV 1&2 Ab & HIV 1 Ag Non-reactive (Non-Reactiv) 12/03/23 13:43 HIV 1&2 Antibody Non-reactive (Non-Reactiv) 12/03/23 13:43 A&P Assessment and plan (1) Elevated troponin: Most likely this patient had a recent myocardial infarction. Patient is on heparin and Plavix. He had some nosebleed which is currently resolved. The hemoglobin hematocrit is fairly stable. (2) Hypotension: Currently normotensive. May continue on the current management. Qualifiers: Hypotension type: unspecified hypotension type Qualified Code(s): I95.9 - Hypotension, unspecified (3) Recent myocardial infarction of inferior wall: In view of the patient's ventricular arrhythmia and possible recent myocardial infarction, he requires a cardiac catheterization to further evaluate his coronary status. The family is undecided at this point. His mental status fluctuation also is a concern. (4) Acute diastolic heart failure: Currently compensated. Will continue on the current management. (5) Acute renal failure superimposed on stage 3 chronic kidney disease: On hemodialysis. Improved urine output at this point. Qualifiers: Acute renal failure type: unspecified Chronic kidney disease stage 3 subtype: stage 3a (GFR 45-59) Qualified Code(s): N17.9 - Acute kidney failure, unspecified; N18.31 - Chronic kidney disease, stage 3a (6) Pyelonephritis: Patient continues to remain afebrile. Management as per the primary care (7) Chronic calcific pancreatitis: Has been undergoing treatment in [place]. Details are not available. Plan Apparently the patient's family has decided not to take him to any invasive or interventional procedures. He wants to be kept a DNI DNR. Will continue to comfort measures Attestations Medical Necessity Statement*: Deferred to the primary Coding Level of Care Code 82522 Diagnoses Elevated troponin R79.89 Hypotension, unspecified hypotension type I95.9 Hypotension type: unspecified hypotension type Recent myocardial infarction of inferior wall Acute diastolic heart failure I50.31 Acute renal failure superimposed on stage 3a chronic kidney disease, unspecified acute renal failure type N17.9; N18.31 Acute renal failure type: unspecified Chronic kidney disease stage 3 subtype: stage 3a (GFR 45-59) Pyelonephritis N12 Chronic calcific pancreatitis K86.1
[2023-12-04] MEDS: insulin lispro 100 unit/1 mL SUBCUT ×2 (08:26→13:40)
--- NOTE | 2023-12-04 08:40 | CT_ITS ---
WS: [id number] CT HEAD TECHNIQUE: Noncontrast CT of the head obtained from the skullbase to the vertex. CLINICAL INFORMATION: ams COMPARISON: None. DLP: 2077.[address] scans at [facility] use at least one of these dose optimization techniques: automated e xposure control; mA and/or kV adjustment per patient size (includes targeted exams where dose is matc hed to clinical indication); or iterative reconstruction. FINDINGS: No evidence of intracranial hemorrhage or mass effect. Ventricular system and basal cisterns are davis nt. Moderate small vessel changes with moderate parenchymal volume loss. No extra-axial fluid collect ions. No evidence of mass or mass effect. Intracranial vascular calcification. Partial opacification RIGHT mastoid air cells. Fluid and secretions in the posterior nasopharynx. IMPRESSION: 1. No evidence of intracranial hemorrhage or mass effect. 2. No acute intracranial findings.
--- NOTE | 2023-12-04 09:06 | ECG_ITS ---
[facility] Test Date: 2023-12-04 Pat Name: Sotero Canchola(Kwabena) Department: Room: ICU11 Gender: Male Ambulatory Care Coordinator: : 1950 Requested By: Trevor Reardon Order Number: [id number] Reading MD: Aaron Villalba M.D. Measurements Intervals [place] Rate: 104 P: 86 NM: 143 QRS: 45 QRSD: 113 T: -75 QT: 356 QTc: 469 Interpretive Statements ATRIAL FLUTTER POSSIBLE INFERIOR MYOCARDIAL INFARCTION , OF INDETERMINATE AGE [30 ms Q WAVE IN II/aVF] ST DEVIATION AND MODERATE T-WAVE ABNORMALITY, CONSIDER ANTEROLATERAL ISCHEMIA [-0.1+ mV T-WAVE IN V3-V6] Compared to ECG 12/03/2023 23:51:07 Myocardial infarct finding now present T-wave abnormality now present Possible ischemia now present Ventricular premature complex(es) no longer present Aberrant conduction of supraventricular beat(s) no longer present Intraventricular conduction delay no longer present Electronically Signed On 12-04-2023 21:32:35 CDT by Aaron Villalba M.D. [id number]
--- NOTE | 2023-12-04 09:06 | XRR_ITS ---
PROCEDURE INFORMATION: Exam: XR Chest Exam date and time: 12/04/2023 8:13 AM Age: 73 years old Clinical indication: Shortness of breath; Additional info: SOB TECHNIQUE: Imaging protocol: Radiologic exam of the chest. Views: 1 view. COMPARISON: CR XR chest 1V portable [id number] 12/03/2023 6:13 AM FINDINGS: Tubes, catheters and devices: Central line terminates in the SVC. PICC line has been repositioned still entering from the left and now terminating in the SVC. Lungs: Bibasilar atelectasis but aeration is improved since yesterday. Pleural spaces: Unremarkable. No pleural effusion. No pneumothorax. Heart/Mediastinum: See Vasculature finding. Vasculature: Mild cardiomegaly and uncoiling thoracic aorta. Vascular engorgement with mild interstitial prominence. Bones/joints: Unremarkable. XR/XR chest 1V portable [id number] IMPRESSION: 1. PICC line terminates in the SVC. 2. Persistent mild CHF.
[2023-12-04 09:30] LABS: ABG PCO2 23.3 mmHg (35-45); Arterial Blood Gas Hematocrit 31.3 % (42-52); Base Excess ABG -13.3 mmol/L (-2.0-2.0); Blood Gas Allen Test Pos; Blood Gas Operator Identificat CAK; Blood Gas Sample Site Radial, left; Blood Gas Sample Type Arterial; HCO3 ABG 11.5 mmol/L (22-26); Oxygen Device ROOM AIR; PO2 ABG 68.7 mmHg (80.0-100.0); PO2 FiO2 Ratio Arterial Blood 0
--- NOTE | 2023-12-04 09:56 | XRR_ITS ---
PROCEDURE INFORMATION: Exam: XR Chest Exam date and time: 12/04/2023 9:06 AM Age: 73 years old Clinical indication: Device placement; Ng tube; Additional info: Ng placement TECHNIQUE: Imaging protocol: Radiologic exam of the chest. Views: 1 view. COMPARISON: CR XR chest 1V portable [id number] 12/04/2023 8:13 AM FINDINGS: Tubes, catheters and devices: Prior life support lines are unchanged, a new NG tube is been inserted and terminates in the left upper quadrant, presumably within stomach. Lungs: Pulmonary infiltrates are stable. Pleural spaces: Unremarkable. No pleural effusion. No pneumothorax. Heart/Mediastinum: Unremarkable. No cardiomegaly. Bones/joints: Unremarkable. XR/XR chest 1V portable [id number] IMPRESSION: Gastric tube terminates in the stomach.
--- NOTE | 2023-12-04 10:01 | PC.NURSE ---
[id number] Dr. Reardon called to room due to 23 beat run non sustained self limiting VTach. See orders placed. Code status discussed with . Full code.
[2023-12-04] MEDS: citric acid-sodium citrate 30 mL UDC 60 ML NG-TUBE (10:28)
--- NOTE | 2023-12-04 10:33 | P.PN_ITS ---
Subjective 2 Subjective: UOP picked up on RA Medications: Reviewed: Yes Vitals/I&O/Wt Last Vital Signs Temp 97.9 F 12/04/23 08:37 Pulse 108 H 12/04/23 08:30 Resp 21 H 12/04/23 08:30 BP 152/78 12/04/23 08:30 Pulse Ox 96 12/04/23 08:30 O2 Del Method Room Air 12/04/23 08:30 O2 Flow Rate 5 12/02/23 05:23 12/03/23 12/04/23 12/04/23 22:59 06:59 14:59 Intake Total 0 / 250 250 / 500 0 / 0 Output Total 1800 / 1800 100 / 1900 Balance -1800 / -1550 150 / -1400 0 / 0 Weight last 48 hrs Weight 97.968 kg Weight 99.5 kg Weight 95.7 kg Physical Exam 2 Narrative: lethargic +NGT S1 S2 RRR per report lUNGS CLEAR PER REPORT + EDEMA Urinary Catheter Management: Pollard: Cath Placed During This Visit: yes Reason for Continuing Indwelling Catheter: Accurate Measurement of Urinary Output in Critically Ill Patients Urinary Catheter Date of Insertion: 11/29/23 Urinary Catheter Time of Insertion: 08:55 Data 12/04/23 05:28 12/04/23 05:28 Micro: Microbiology 11/29/23 08:17 Blood Culture - Final Blood NO GROWTH AFTER 5 DAYS 11/29/23 08:17 Blood Culture - Final Blood NO GROWTH AFTER 5 DAYS A&P Assessment and plan (1) Acute renal failure superimposed on stage 3 chronic kidney disease: Qualifiers: Acute renal failure type: unspecified Chronic kidney disease stage 3 subtype: stage 3a (GFR 45-59) Qualified Code(s): N17.9 - Acute kidney failure, unspecified; N18.31 - Chronic kidney disease, stage 3a Plan 1. Acute on chronic kidney disease stage III: Baseline creatinine is in the 2 range patient now presented with JIA with a creatinine of 7.3 associated with metabolic acidosis and hyperkalemia and volume overload. His current JIA most likely ATN in the setting of acute infection/UTI, and possible prerenal. -s/p temporary HD catheter placement and hD x 2 sessions , UOP picked up ,on RA, hold off HD today -Avoid nephrotoxins and IV contrast studies. 2. Metabolic acidosis: s/p bicarbonate drip, Added Bicitra 3. Pyelonephritis, on antibiotics 4. ? gastric outlet obstruction on CT, patient has NGT and general surgery following , 5. Elevated BNP 6. CHF Patient evaluated using audiovisual cart. Time spent 20 minutes. Attestations 2 Medical Necessity Statement*: per jacesd Coding Level of Care Code Acute Code for Chg Fwd Diagnoses Acute renal failure superimposed on stage 3a chronic kidney disease, unspecified acute renal failure type N17.9; N18.31 Acute renal failure type: unspecified Chronic kidney disease stage 3 subtype: stage 3a (GFR 45-59)
--- NOTE | 2023-12-04 11:03 | ECG_ITS ---
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 Measurements Intervals [place] Rate: 106 P: 28 NE: 178 QRS: 35 QRSD: 152 T: -63 QT: 350 QTc: 466 Interpretive Statements ATRIAL FLUTTER INTRAVENTRICULAR CONDUCTION DELAY [130+ ms QRS DURATION] POSSIBLE INFERIOR MYOCARDIAL INFARCTION , OF INDETERMINATE AGE [30 ms Q WAVE IN II/aVF] Compared to ECG 12/04/2023 09:06:37 Intraventricular conduction delay now present T-wave abnormality no longer present Possible ischemia no longer present Myocardial infarct finding still present Electronically Signed On 12-04-2023 21:41:12 CDT by Aaron Villalba M.D. [id number]
[2023-12-04 13:39] LABS: Glucose Point of Care 286 mg/dL (70-110)
[2023-12-04] MEDS: ondansetron 2 mg/ML SDV 2 mL 4 MG IVP (13:39)
[2023-12-04] MEDS: phytonadione (ADULT) 10 mg/mL Ampule 1 mL SUBCUT (13:41)
[2023-12-04 14:30] LABS: Blood Urea Nitrogen 63 mg/dL (8-23); Carbon Dioxide 11 mmol/L (22-29); Chloride 96 mmol/L (98-107); Creatinine Clr Calc Pharmacy 21.2437; Glucose 284 mg/dL (65-115); Osmolality Calculated 318 mOsm/kg (285-295); Sodium 140 mmol/L (136-145)
[2023-12-04 14:34] LABS: Troponin(5th) Baseline 443 ng/L (0-15)
[2023-12-04 14:39] LABS: Anion Gap 37.3 (5-19); Potassium 4.3 mmol/L (3.5-5.1)
--- NOTE | 2023-12-04 14:42 | ECG_ITS ---
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 Measurements Intervals [place] Rate: 81 P: 0 NE: 0 QRS: 31 QRSD: 143 T: -37 QT: 395 QTc: 461 Interpretive Statements ATRIAL FLUTTER WITH ABERRANT CONDUCTION OR VENTRICULAR PREMATURE COMPLEXES LEFT BUNDLE BRANCH BLOCK [120+ ms QRS DURATION, 80+ ms Q/S IN V1/V2, 85+ ms R IN I/aVL/V5/V6] Compared to ECG 12/04/2023 11:14:44 Ventricular premature complex(es) now present Aberrant conduction of supraventricular beat(s) now present Left bundle-branch block now present Sinus tachycardia no longer present Intraventricular conduction delay no longer present Myocardial infarct finding no longer present Electronically Signed On 12-04-2023 21:38:16 CDT by Aaron Villalba M.D. [email or web address]/[id number]
--- NOTE | 2023-12-04 14:47 | PC.SLP ---
Pt not ready for MANUFACTURING TECHNOLOGY PROFESSOR assessment yet due to medical status.
[2023-12-04] MEDS: amiodarone 150 MG/100 ML PREMIX 400 MG IV (14:49)
--- NOTE | 2023-12-04 15:08 | PC.NURSE ---
Code status discussed with . wants comfort measures only at this time. See orders.
[2023-12-04] MEDS: morphine 4 mg/mL SDV 1 mL 1 MG IVP (15:23)
[2023-12-04] MEDS: metoprolol tartrate 1 mg/1 mL SDV 5 mL 5 MG IVP (15:25)
--- NOTE | 2023-12-04 15:40 | PC.NURSE ---
VTach/VFib with rate in 250s at 1436. Patient placed on Zoll with unsyncronized shock of 150 j one time. Patient back to normal rhythm with pulse. No CPR initiated. Dr. Reardon at bedside. at bedside and asked for Comfort care measures at this time. Orders placed.
--- NOTE | 2023-12-04 16:10 | P.PN_ITS ---
Subjective 2 Subjective: - Patient was examined multiple times th roughout the day, with multiple family meetings, at bedside -Early in the morning patient was seen, he is alert and oriented x 0, he does awaken to sternal rub but falls back asleep, does not withdraw from pain, pupils equal round reactive to light, afebrile overnight normotensive ? I had extensive discussion with patient's at bedside I believe that patient's mentation is possibly secondary to polypharmacy, possible prolonged ICU hospitalization and ICU delirium, his blood cultures have been negative his white blood cell count has trended negative, I stop meropenem and stop Zyvox, he is on Rocephin, his head CT 2 days ago was within normal limits I can certainly repeat a head CT today and plan for MRI brain and MRA head and neck, his ammonia levels are within normal limits, his electrolytes have improved his troponins continue to be elevated, I had extensive discussion with patient's about his home medications, he only had 3 doses of Lyrica and Lyrica made him increasingly confused so she stopped giving it to him, so I do not believe his Lyrica withdrawal, he has been on gabapentin in the past, but there is no recent history of gabapentin use, he is on Elavil and uses it very regularly potentially could be going to Lyrica withdrawal although I feel unlikely, he has not been taking his medications orally, the plan was to place an nasogastric tube, to give him his p.o. medications as he does not have the mentation to take his p.o. medications, discussed risk and benefits of nasogastric tube placement with patient's INR, patient's voiced understanding, all consents are, agreed to proceed ? I had extensive discussion with patient's about patient's elevated troponins, he is EF and his wall motion abnormalities overnight he developed episodes of nonsustained V. tach, we discussed that with his diminished ejection fraction with his wall motion abnormalities he continues to have these nonsustained V. tach episodes, my concern is is that he might need cardioversion he might require further medications and ultimately, likely will need an angiogram, and if he were to get an angiogram there is significant morbidity mortality associated with the procedure given his current condition, risk of dialysis, risk of coronary event. But given his current state with his altered mentation I do not believe cardiology will pursue coronary angiography with his elevated INR he has a high risk of bleeding, and I believe that they will go ahead and pursue at this point until either his mentation improves and his INR improves. But my concern is is that he will continue to have these episodes of nonsustained V. tach, and morbidity mortality associated, he will have a high risk of requiring CPR, defibrillation, intubation, she voiced understanding, all questions answered, for now she wants everything to be done, initially when patient was admitted, patient had voiced with his that he would only want to be electively intubated, and would only want to have 2 sessions of CPR. However patient's clarifies, she tells me that she and Kwabena have had extensive discussions about this and really he would not want to have CPR, he would not want to be put on a ventilator he would not want to have aggressive life-sustaining measures and he would not want dialysis, she tells me she is conflicted, but in the past after that extensive discussions he would not want everything to be done that were doing to him now, but for now she wants to keep him a full code, ? Discussed with plan is to do CT of the head, place nasogastric tube, give patient's p.o. medications, plan on MRI MRA, discussed with cardiology ? Spoke to cardiology, patient has had nonsustained V. tach , concerns for further cardiac rhythm patient's low EF, wall motion abnormalities, NSTEMI, I cannot anticoagulate him given his elevated INR, my worry is is that he will have further arrhythmias, likely secondary to compromise coronary artery, and morbidity and mortality associated however after extensive discussion with cardiology, currently he is not a candidate for coronary angiography given his significant altered mental status, and elevated INR, ? Patient in the ICU had another episode of nonsustained V. tach, no medications were required, he converted out of it, ? Patient was monitored throughout the morning and into the afternoon, ? Early in the afternoon patient's mentation improved, head CT within normal limits there was plans on doing an MRI MRA, he was alert to person, to place, not to time he would follow commands move both upper and lower extremities, pupils equal round reactive to light, is at bedside tells me that she is able to have a conversation with Kwabena, ? During my examination he remains encephalopathic but is alert to person, to place, not to time he can follow some commands but remains encephalopathic but his mentation is significantly proved compared to the morning ? Thereafter patient had a significant episode of coughing up blood, bloody drainage from both nasal sinuses, we used a suction to suck out blood clots from his posterior pharynx, likely bleeding is from his nasal sinus from where his NG tube was inserted, and given his elevated INR and that he is on aspirin and Plavix ? With the help of nursing staff, NG tube was removed, and I inserted 2 Rhino Rocket's into both nasal sinuses ? Patient was monitored thereafter, he did not have intermittent episodes of bleeding around the Rhino Rocket which required repositioning, but thereafter bleeding from both nasal sinuses resolved, no recurrent bloody cough, posterior pharynx was observed, no active bloody drainage in the posterior pharynx, I ordered 1 unit FFP,, gave 10 mg subcu vitamin K ? Patient's and family member at bedside, when patient became unresponsive, apneic, no detectable blood pressure, rhythm read V. tach on the monitor, I was present during this time with nursing staff, ? This was roughly at 3 PM ? Patient had defibrillator pads on, patient was shocked,as apniec, non responsive, no carotid pulse, pulse less vtach, he was defibrillated, he converted into normal sinus rhythm, became alert and awake, could follow minimal commands, on 2 L, breathing on his own, good chest rise, no tachypnea, no respiratory failure ? His heart rates went in to the 130s thereafter A-fib, was given a loading dose of amiodarone at 150 mg, but remained in the 130s atrial fibrillation, was given 2.5 mg of metoprolol ? Placed on an amiodarone drip, -EKG showing new onset left bundle branc h block, minimal ST deviations, A-fib with RVR ? At this point patient was alert to person, to place could follow some commands, remained grossly encephalopathic was on 2 L, status post cardioversion was on amiodarone drip, maps were hovering just below 65 but improved quickly thereafter to greater than 65 ? On examination he had good DP PT pulses, had good carotid pulse, could withdraw from pain, was moving both upper lower extremities, was breathing on his own, no evidence of respiratory distress, no evidence of respiratory failure, pupils equal round reactive to light, is at bedside -Patient is receiving his first unit of FFP, ? I had a detailed discussion with patient's at bedside, I discussed with that as his mentation has improved, the only issue now is his elevated INR for which she had a nosebleed, and he is on aspirin and Plavix, but if you could reverse his INR I believe that he would be a candidate for coronary angiography which would be potentially life-saving -as per my discussion with and fami ly member at bedside, patient has an NSTEMI, his troponins continue to be elevated, he likely has a compromised coronary artery, does causing these cardiac arrhythmias, with his wall motion normalities and his diminished ejection fraction is a high risk of morbidity and mortality ? As per my discussion with without coronary angiography, and likely stent placement, patient has a high risk of morbidity and mortality, he is going to continue to have these episodes of cardiac arrhythmias -- He has a high likelihood no high risk of further cardiac arrhythmias, further CPR, defibrillation, intubation, mechanical ventilation without coronary angiography and possible stent placement, I have him on amiodarone which will hopefully decrease the risk of further cardiac arrhythmias, but with his elevated troponins, his echocardiogram findings, I feel that he has a high risk of morbidity and mortality without acute intervention ? I discussed with that with acute event intervention we could save his life ? But the risks of coronary angiography given his creatinine, and his kidney failure is likely worsening kidney function likely further requirement of dialysis and likely permanent dialysis, but only time will tell, there is also risk of strokes that, there is also risk of heart attack as with the coronary angiography procedure, there is a high likelihood that he might require intubation during or after the procedure ? After discussing all the risk and benefits, she voiced understanding, all questions answered, she wants to proceed with coronary angiography but she wants to talk to her family members ? Meanwhile I had extensive discussion with cardiology, about the situation, the episodes of pulseless V. tach, elevated troponins, the issue being elevated INR which is limiting performing coronary angiography straightaway, his mentation is significantly improved, plans on giving 2 units FFP have given 1 dose of vitamin K, Dr. Aguirre was good to speak to Dr. Villalba about possibly performing coronary angiography sometime today, ? Patient's spoke to nursing staff that she wants to potentially make patient comfortable, ? I had a discussion with patient's about continuing medical interventions which could be potentially life saving, including but not limited to coronary angiography which could potentially save his life but certainly would carry risks, however she tells me she wants everything to be stopped this is not what he would wanted he would not want to live this way ? She tells me that they have already talked and he did not want to go and see the acid conditioner for his kidney failure, he did not want dialysis, and they have talked about goals of care many times in the past and he would not want to be resuscitated he would not want to be put on a ventilator, he has always said that he just wanted to to comfortably, ? I had a detailed discussion with patient's about withdrawing care making him comfortable and what that would entail easing his pain easing his suffering allowing him to pass away comfortably versus pursuing medical intervention to try to save his life ? I discussed the risks and benefits of all options, she voiced understanding, all concerns answered, she wants to proceed with making him comfortable and stopping all interventions ? Will start comfort care process, eases pain easing suffering allow him to pass with comfortably ? Spoke to Dr. Aguirre, informed him that the family wants to proceed with comfort care Vitals/I&O/Wt Last Vital Signs Temp 97.9 F 12/04/23 08:37 Pulse 71 12/04/23 15:00 Resp 14 12/04/23 15:23 BP 101/59 12/04/23 15:00 Pulse Ox 79 L 12/04/23 15:23 O2 Del Method Room Air 12/04/23 15:00 O2 Flow Rate 4 12/04/23 15:00 12/04/23 12/04/23 12/04/23 06:59 14:59 22:59 Intake Total 250 / 500 100 / 100 Output Total 100 / 1900 500 / 500 Balance 150 / -1400 -400 / -400 Weight last 48 hrs Weight 97.968 kg Weight 99.5 kg Weight 95.7 kg Physical Exam 2 Const: COMMON NORMALS: no acute distress Resp: COMMON NORMALS: normal respiratory effort, No retractions, No use of accessory muscles and clear to auscultation bilaterally AUSCULTATION: clear to auscultation bilaterally Cardio: COMMON NORMALS: regular rate, regular rhythm, S1 normal heart sound present and S2 normal heart sound present RATE: regular rate RHYTHM: r egular rhythm HEART SOUNDS: S1 normal heart sound present and S2 normal heart sound present GI: COMMON NORMALS: Normal to inspection, nondistended, normoactive bowel sounds present and non-tender Extremity: NARRATIVE EXTREMITY EXAM: 1+ edema Urinary Catheter Management: Pollard: Cath Placed During This Visit: yes Reason for Continuing Indwelling Catheter: Accurate Measurement of Urinary Output in Critically Ill Patients Urinary Catheter Date of Insertion: 11/29/23 Urinary Catheter Time of Insertion: 08:55 Data 12/04/23 05:28 12/04/23 13:38 Micro: Microbiology 11/29/23 08:17 Blood Culture - Final Blood NO GROWTH AFTER 5 DAYS 11/29/23 08:17 Blood Culture - Final Blood NO GROWTH AFTER 5 DAYS A&P Assessment and plan (1) Pyelonephritis: (2) UTI (urinary tract infection): (3) Acute renal failure superimposed on stage 3 chronic kidney disease: Qualifiers: Acute renal failure type: unspecified Chronic kidney disease stage 3 subtype: stage 3a (GFR 45-59) Qualified Code(s): N17.9 - Acute kidney failure, unspecified; N18.31 - Chronic kidney disease, stage 3a (4) Hyperkalemia: (5) NSTEMI (non-ST elevated myocardial infarction): (6) Acute exacerbation of CHF (congestive heart failure): (7) Fluid overload: (8) Hypomagnesemia: (9) Anasarca: (10) Wall motion abnormality of inferior wall of left ventricle: (11) Bradycardia: (12) Gastric outlet obstruction: (13) Acute respiratory failure: (14) Aspiration pneumonia: (15) Hyperammonemia: (16) Acute liver failure: (17) V-tach: Plan Patient proceeding with comfort care Elevated INR, 5.9, received 1 unit FFP Pulseless V. tach, status post defibrillation NSTEMI, elevated troponins, with nonsustained V. tach, with echocardiogram findings of wall motion abnormalities, EF of 45 to 50%, patient's declines medical and procedural intervention, wants to proceed with comfort care Acute encephalopathy -Etiology -Could be from meropenem ? Could be from hyperammonemia, ?could be ICU delirium ? Monitor mentation closely ? NIH stroke scale, neurochecks, aspiration precautions, ? Repeat head CT within normal limits Acute hypoxic respiratory failure ? Multifactorial ? From fluid overload, diastolic CHF, ? Has received dialysis yesterday ?from aspiration pneumonia, Aspiration pneumonia, aspiration pneumonitis ? IV antibiotics Acute pyelonephritis, with right CVA tenderness, UTI -Urine culture within normal limits ? Blood cultures within normal limits, ? De-escalate to Rocephin -Follow urine cultures, blood cultures Acute renal failure on chronic kidney disease -Creatinine up to 3.1 ? Given elevated BNP, bilateral extreme edema, shortness of breath, anasarca w ?Status post temporary dialysis catheter placement ? Receiving inpatient dialysis Hyperkalemia, resolved ? Status post calcium gluconate, insulin, D50, sodium bicarb, Kayexalate in the emergency room -Likely secondary renal failure ? Recheck serum potassium level ? Serial EKGs, serial troponins, telemetry monitoring Metabolic acidosis, likely secondary renal failure Acute systolic and diastolic CHF exacerbation ? Secondary to fluid overload, anasarca, lower extreme edema, ? Creatinine 3.4, troponin 390, BNP over 18,000 ?Did not respond to Lasix ? Receiving inpatient dialysis NSTEMI, with wall motion abnormalities on echo ? No chest pain complaints, -EKG no acute ST-T wave changes ? Continue Plavix, aspirin, heparin drip ? Cardiac echo CONCLUSIONS LV systolic function is mildly reduced with EF of 45 to 50%. Basal inferoseptal and anteroseptal peoples of moderate to severe hypokinesis. Mild mitral regurgitation Trace aortic regurgitation Mild tricuspid regurgitation Mild pulmonic regurgitation Ascending aorta is dilated with diameter of 3.98 cm. Compared to prior echocardiogram from 2017, LV systolic function has decreased ? Serial EKGs, serial troponins, telemetry monitoring -Cardiology consulted -Troponin up to 481 ? Will repeat troponin series ? As INR is 4.82 will hold heparin drip ? Inpatient stress testing versus angiogram, based on clinical progress Bradycardia, A-fib with slow ventricular response, -Atropine as needed -Repeat blood work, EKGs, chest x-ray, KUB ? Status post dopamine, wean off Anasarca as above Sepsis secondary to UTI, pyelonephritis given leukocytosis, elevated inflammatory markers, Gastric outlet obstruction 1. Marked distention of the stomach with fluid. There is a change in caliber in the duodenal C-loop. Spasm versus gastric outlet obstruction or obstructing neoplasm within the differential. -Keep n.p.o.,monitor NG tube output ? Cannot perform EGD as anesthesia has concerns about sedation CT/CT abdomen pelvis wo con [id number] IMPRESSION: 1. Exam compared with 2 days ago. 2. There is oral contrast given, and there is no evidence of a complete gastric outlet obstruction. There is distal gastric wall thickening. Follow with GI. Consider need for EGD. 3. Progressive diffuse 3rd spacing of fluid with increasing bilateral mid to lower lung atelectasis or pneumonia with effusions, diffuse anasarca, and minimal ascites. 4. The colon is rather fecal filled. No small bowel obstruction, abscess or free air. 5. Numerous other chronic findings again seen. -NG tube removed, transition to clears once mentation improves, speech therapy eval -General surgery consulted Acute liver failure -With elevated LFTs, elevated GGT, elevated INR, elevated bili, albumin 3.4 -Etiology -Could be hepatorenal syndrome -Could be potentially from meropenem, or Zyvox -Will order ultrasound liver -Will order acute hep panel Full code Heparin for DVT prophylaxis Attestations 2 Medical Necessity Statement*: Patient requires hospitalization for comfort care, pulseless V. tach, NSTEMI, elevated INR, acute renal failure, acute hypoxic respiratory failure, aspiration pneumonia, acute encephalopathy, atrial fibrillation Coding Level of Care Code Critical Care >/= 30 minutes Critical care time (in minutes): 80 The high probability of a clinically significant, sudden or life threatening deterioration, as referenced in this documentation, required my full and direct attention, intervention and personal management. The critical care time shown is in addition to time spent performing any reported separately billable procedures and includes the following: [x] Data and vital sign review and interpretation [x ] Patient assessment, examination and intervention [x] Medication orders and management [x] Patient/Family updates as able [x] Care Coordination and Documentation. Diagnoses Pyelonephritis N12 UTI (urinary tract infection) N39.0 Acute renal failure superimposed on stage 3a chronic kidney disease, unspecified acute renal failure type N17.9; N18.31 Acute renal failure type: unspecified Chronic kidney disease stage 3 subtype: stage 3a (GFR 45-59) Hyperkalemia E87.5 NSTEMI (non-ST elevated myocardial infarction) I21.4 Acute exacerbation of CHF (congestive heart failure) I50.9 Fluid overload E87.70 Hypomagnesemia E83.42 Anasarca R60.1 Wall motion abnormality of inferior wall of left ventricle R94.30 Bradycardia R00.1 Gastric outlet obstruction K31.1 Acute respiratory failure J96.00 Aspiration pneumonia J69.0 Hyperammonemia E72.20 Acute liver failure K72.00 V-tach I47.20
--- NOTE | 2023-12-04 18:06 | PC.NURSE ---
[facility] called and notified of . Patient is not candidate for organ donation due to being [facility] body donation. [facility] called and pending. signed for body transfer. [facility] called and notified of /location.
--- NOTE | 2023-12-04 18:09 | PC.NURSE ---
TOD 1736 verified by asystole in all leads, no respirations, no pulse, verified by this nurse.
--- NOTE | 2023-12-04 19:42 | PC.NURSE ---
Post mortem care complete.
--- NOTE | 2023-12-04 23:08 | PC.NURSE ---
[facility] Time Pt [place] [facility] [place] 2114. [facility] pending and [facility] pending at this time
--- NOTE | 2023-12-19 21:07 | P.DES_ITS ---
Discharge Providers DDS Date of Admission: 11/29/23 11:44 Date Summary Completed: 12/19/23 Attending Provider at Admission: Trevor Reardon MD Time of : 17:36 Attending Provider at Discharge: Trevor Reardon MD Primary Care Provider: Su Porter MD DS Diagnoses Hospital Diagnoses (1) Elevated troponin: (2) Hypotension: Qualifiers: Hypotension type: unspecified hypotension type Qualified Code(s): I95.9 - Hypotension, unspecified (3) Recent myocardial infarction of inferior wall: (4) Acute diastolic heart failure: (5) Acute renal failure superimposed on stage 3 chronic kidney disease: Qualifiers: Acute renal failure type: unspecified Chronic kidney disease stage 3 subtype: stage 3a (GFR 45-59) Qualified Code(s): N17.9 - Acute kidney failure, unspecified; N18.31 - Chronic kidney disease, stage 3a (6) Pyelonephritis: (7) Chronic calcific pancreatitis: Reason for Visit Reason for Visit generalized weakness Summary Date and Time of Date of : 12/04/23 Time of : 17:36 Summary Summary: Sotero Canchola(Kwabena) is a 73 year old male with a past medical history of CVA, with residual left-sided weakness, hypertension, hyperlipidemia, insulin- dependent type 2 diabetes mellitus, chronic kidney disease, who presents to [facility] due to bilateral extremity edema, shortness of breath, weakness, increased confusion. Patient's is at bedside, who helps in the history taking, as patient is hard of hearing, patient tells me that her outpatient physician has been monitoring his kidney function, due to elevation of his creatinine, he is supposed to see a windows administrator, but the next available appointment is in the next few months. He has been developing increasing lower extremity edema, pitting edema with shortness of breath, due to increased lower extremity edema, he is having significant pain, he was placed on Lyrica for possible neuropathic pain however it made patient very confused so it was st opped after 2 doses. Patient reports feeling fatigue, malaise, he did have a UTI roughly 3 weeks ago, he received antibiotics, denies any dysuria, but does complain of right flank pain and lower back pain, no fevers, no chills, no nausea, no vomiting but does have a poor appetite he does report increased abdominal distention, no bloody or black stools, he denies any chest pain, no palpitations, no headache, no blurry vision, Patient was admitted to [facility] for acute pyelonephritis, UTI, sepsis, acute renal failure on chronic kidney disease, with NSTEMI, with aspiration pneumonia, respiratory failure, with acute systolic diastolic CHF exacerbation. Patient received broad-spectrum antibiotic therapy, for his acute renal failure, nephrology was consulted, patient had dialysis catheter placed, for dialysis. Patient received inpatient dialysis for JIA, with underlying CKD. there was also concerns for gastric outlet obstruction, general surgery was consulted which was initially medically managed, which resolved on repeat CT imaging. Patient's hospitalization was complicated with NSTEMI, initially medically managed, aspirin, Plavix, heparin drip, cardiology was consulted. Echocardiogram showed diminished ejection fraction of 45 to 50%, with wall motion abnormalities. Patient developed episodes of nonsustained V. tach, with acute encephalopathy, with NSTEMI, with acute respiratory failure. For acute encephalopathy likely secondary to UTI, pyelonephritis, sepsis, his mentation did improve the morning of 12/04/2023, was able to answer questions, but cannot make informed decisions. However patient developed sustained V. tach episode, associated with nonresponsiveness patient did require shock for sustained V. tach associated with unresponsiveness, after detailed discussion with family, the concern was for underlying cardiac etiology, concerns for obstructive CAD, that would require urgent coronary intervention, to save patient's life, without this patient would likely have recurrent sustained V. tach episodes, would have increased risk of morbidity and mortality, after discussing the risk and benefits, patient's voiced understanding, all question answered, agreed to proceed with plans on proceeding with coronary angiography, for NSTEMI, wall motion abnormalities, nonsustained V. tach, concerns for obstructive CAD. However patient's had a further discussion with the rest of the family, further details discussion about goals of care, patient's elected to proceed with comfort care. Discussed risk and benefits of comfort care, she voiced understanding, all questions answered, agreed to proceed with comfort care, patient was made comfort care, time of 12/04/2023 0373 Additional Data Confirmation of as documented by pronouncing clinician: no pulse, no respirations, no heart sounds and pupils fixed and dilated Family: at bedside Additional persons at bedside: nursing staff Attending/PCP notified?: I am attending Was code activated?: No Autopsy requested?: No Advance directives?: No Discharge Plan Discharge Patient Disposition: Condition: Stable Prescriptions: No Action (DME) FreeStyle Lite Strips Strip See Rx Instructions .ROUTE .MEDSUPPLY Qty: 100 3RF Rx Instructions: One strip to test blood sugar four times daily (DME) insulin syringe-needle U-100 [BD Insulin Syringe Ultra-Fine] 0.5 mL 31 gauge x 5/16 syringe See Rx Instructions .ROUTE .MEDSUPPLY Qty: 200 6RF Rx Instructions: 5 times daily (DME) Blood Glucose Test Strip See Rx Instructions .ROUTE .MEDSUPPLY Qty: 100 11RF Rx Instructions: test four times daily, prn (DME) lancets [FreeStyle Lancets] 28 gauge misc See Rx Instructions .ROUTE .MEDSUPPLY Qty: 200 4RF Rx Instructions: TEST FOUR TIMES DAILY (DME) pen needle, diabetic [Comfort EZ Pen [place]] 32 gauge x 1/4 needle See Rx Instructions .Route Qty: 100 0RF Rx Instructions: daily to inject insulin Novolin R Regular U100 Insulin 100 unit/mL solution See Rx Instructions .ROUTE .COMPLEX Qty: 10 0RF Dose Instruction: INJECT subcutaneously PER sliding scale: 2 units of insulin PER 15 grams of carbs Rx Instructions: INJECT subcutaneously PER sliding scale: 2 units of insulin PER 15 grams of carbs amitriptyline 10 mg tablet 20 mg PO DAILY Qty: 90 3RF simvastatin 40 mg tablet 40 mg PO DAILY Qty: 90 2RF lisinopril 40 mg tablet 40 mg PO DAILY Qty: 90 3RF clopidogrel [Plavix] 75 mg tablet 75 mg PO DAILY Qty: 90 3RF amlodipine 10 mg tablet 10 mg PO DAILY Qty: 90 3RF furosemide 40 mg tablet 40 mg PO DAILY Qty: 90 0RF Novolin N NPH U-100 Insulin 100 unit/mL suspension See Rx Instructions .ROUTE .COMPLEX Qty: 10 3RF Dose Instruction: inject 75 units SUBCUTANEOUSLY EVERY MORNING Rx Instructions: inject 80 units SUBCUTANEOUSLY EVERY MORNING metoprolol tartrate 100 mg tablet 100 mg PO BID Qty: 60 3RF acetaminophen 325 mg Tablet 650 mg PO QID PRN (Reason: Pain) tramadol 50 mg Tablet 100 mg PO Q8H PRN (Reason: Pain) Men's One Daily 400-20-300 mcg Tablet 1 tab PO DAILY pantoprazole 40 mg tablet,delayed release (DR/EC) 40 mg PO BID calcitriol 0.25 mcg capsule See Rx Instructions .ROUTE .COMPLEX Rx Instructions: 0.25 mcg orally ;ON SUNDAY, SUNDAY AND SUNDAY Jardiance 25 mg tablet 25 mg PO DAILY Referrals: Su Porter MD [Primary Care Provider] - Patient Instructions: Dialysis Diet (DC), Hemodialysis (DC) Probable Cause of Probable cause of : Cardiac arrest DS Attestations Time Spent in /Discharge Care*: greater than 30 min Quality - AMI: AMI present?: Yes Quality - Stroke: CVA present?: No Quality - VTE: VTE present?: No Deep Vein Thrombosis/Pulmonary Embolism Present on Admission: No Coding Level of Care Code 19345 Total time (in minutes) for Discharge: 45 Diagnoses Elevated troponin R79.89 Hypotension, unspecified hypotension type I95.9 Hypotension type: unspecified hypotension type Recent myocardial infarction of inferior wall Acute diastolic heart failure I50.31 Acute renal failure superimposed on stage 3a chronic kidney disease, unspecified acute renal failure type N17.9; N18.31 Acute renal failure type: unspecified Chronic kidney disease stage 3 subtype: stage 3a (GFR 45-59) Pyelonephritis N12 Chronic calcific pancreatitis K86.1
== END 2023-12-04 17:35 | disposition expired | DRG 689 ==
LOC: ER 11:25 → ICU 11:45
PROVIDERS: Hospitalist; Internal Medicine; Admitting Provider Family Medicine; Emergency Provider Family Medicine; PCP Family Medicine; Visit Provider Family Medicine
DX: N10 Acute pyelonephritis (principal); I21.4 Non-ST elevation (NSTEMI) myocardial infarction; I50.33 Acute on chronic diastolic (congestive) heart failure; J69.0 Pneumonitis due to inhalation of food and vomit; J96.01 Acute respiratory failure with hypoxia; K72.00 Acute and subacute hepatic failure without coma; I13.0 Hypertensive heart and chronic kidney disease with heart failure and stage 1 through stage 4 chronic kidney disease, or unspecified chronic kidney disease; G93.40 Encephalopathy, unspecified; K86.1 Other chronic pancreatitis; E87.20 Acidosis, unspecified; I69.354 Hemiplegia and hemiparesis following cerebral infarction affecting left non-dominant side; I47.29 Other ventricular tachycardia; N39.0 Urinary tract infection, site not specified; N17.9 Acute kidney failure, unspecified; N18.31 Chronic kidney disease, stage 3a; R79.89 Other specified abnormal findings of blood chemistry; I95.9 Hypotension, unspecified; I25.2 Old myocardial infarction; E78.5 Hyperlipidemia, unspecified; E11.22 Type 2 diabetes mellitus with diabetic chronic kidney disease; Z79.4 Long term (current) use of insulin; E87.5 Hyperkalemia; Z79.02 Long term (current) use of antithrombotics/antiplatelets; Z66 Do not resuscitate; R00.1 Bradycardia, unspecified; E87.70 Fluid overload, unspecified; I48.91 Unspecified atrial fibrillation; R14.0 Abdominal distension (gaseous); R40.4 Transient alteration of awareness; Z51.5 Encounter for palliative care
CPT/HCPCS: 36415; 36416; 36430; 36573; 36592; 36600; 51702; 51798; 70450; 71045; 74018; 74176; 76705; 80048; 80051; 80053; 80061; 80074; 81001; 82140; 82330; 82550; 82803; 82805; 82962; 82977; 83036; 83605; 83690; 83735; 83880; 84100; 84145; 84443; 84484; 85025; 85610; 85730; 86140; 86706; 86900; 86927; 87040; 87086; 87340; 87806; 90935; 93005; 93306; 93970; 94664; 96365; 96367; 96372; 96375; 96376; 99285; A4222; C1751; J0283; J0330; J0696; J1100; J1265; J1644; J1815; J1940; J2020; J2185; J2270; J2405; J2704; J3010; J3430; J3475; J3490; J7030; J7060; J7070; P9017; P9046; Q3014; Q9967